=== PATIENT | female | born 1995 | race Caucasian/White ===

== ENCOUNTER 2023-11-21 19:15 | Inpatient (IN) | payer OTHER, SELFPAY ==
--- NOTE | ~2023-11-21 | CT_ITS ---
EXAMINATION: CT ABDOMEN AND PELVIS WITHOUT CONTRAST CLINICAL INFORMATION: Left-sided flank pain. COMPARISON: None available.. TECHNIQUE: Multidetector volumetric imaging was performed from the lung bases to the pubic without contrast. Sagittal and coronal reformatted images were obtained on the technologist workstation. This CT examination was performed using dose optimization techniques as appropriate, variously including the following: *Automated exposure control. *Adjustment of mA and/or kV according to patient size (this includes techniques or standardized protocols for targeted exams where dose is matched to indication/reason for exam; i.e. extremities or head). *Use of iterative reconstruction technique. DLP: 1789 mGy-cm FINDINGS: LUNG BASES: Minimal bilateral dependent atelectasis. Otherwise, no abnormalities of the visualized lung bases. No demonstrated abnormalities of the visualized cardiac structures. ABDOMEN/PELVIS: Liver, Biliary Ducts, and Gallbladder: The unenhanced liver is mildly enlarged, measuring 21 cm in intracranial caudal dimension. Normal hepatic attenuation without focal hepatic lesions or biliary ductal dilatation. The gallbladder is physiologically distended without pericholecystic fluid or significant gallbladder wall thickening. Partially calcified gallstone in the neck of the gallbladder. Pancreas: The pancreas is normal in appearance. Adrenal Glands: The adrenal glands are normal in appearance. Spleen: The spleen is normal in appearance. Kidneys and Ureters: The unenhanced kidneys are normal in size without evidence hydronephrosis. Nonobstructive punctate renal stone in the lower pole of the right kidney. No ureterolithiasis or hydroureter. Urinary Bladder: The urinary bladder is partially distended without focal wall thickening. No bladder calculi are demonstrated. Gastrointestinal System: The stomach is decompressed and therefore not well evaluated on this exam. Normal appearance of the duodenum. Short segment dilations of the jejunum, measuring up to 3.9 cm. There appears to be a small jejunojejunal intussusception without definitively demonstrated. Point on this noncontrast enhanced imaging. The remainder of the small volume is of normal caliber. The colon is normal in appearance without focal wall thickening or pericolonic inflammatory change. Normal appendix. Genitourinary: No demonstrated adnexal soft tissue masses. Intra-abdominal and Retroperitoneal Spaces: No intra-abdominal free fluid collections or gas. Mildly increased fat stranding and mildly increased small mesenteric lymph nodes. No retroperitoneal or inguinal lymphadenopathy. VASCULATURE: The abdominal aorta is of normal contour and caliber. MUSCULOSKELETAL: Mild multilevel degenerative changes of the spine. 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 No lytic or sclerotic osseous lesions demonstrated. No soft tissue masses demonstrated. CT/CT abdomen pelvis wo IV con IMPRESSION: 1. Short segment dilations of the jejunum, measuring up to 3.9 cm. There appears to be a small jejunojejunal intussusception without definitively demonstrated on this noncontrast enhanced imaging. The remainder of the small volume is of normal caliber. 2. Mild nonspecific mesenteric fat stranding and mild increased subcentimeter lymph nodes. 3. Mild nonspecific hepatomegaly. 4. Cholelithiasis without evidence of cholecystitis. 5. Nonobstructive right-sided nephrolithiasis. Electronically signed by: Prince Martinez DO 11/22/2023 12:41 AM EDT
--- NOTE | ~2023-11-21 | FL_ITS ---
EXAMINATION: FL SMALL BOWEL SERIES CLINICAL INFORMATION: Abdominal pain. Concern for small bowel intussusception COMPARISON: CT scan November 21 2023 TECHNIQUE: Following a directory carrier image of the abdomen, Gastrografin was administered orally, and interval abdominal radiographs were performed to assess for contrast progression through the small bowel FINDINGS: Fuel Cell Systems Engineer image of the abdomen demonstrates a normal bowel gas pattern. No organomegaly. Right renal calculus and gallstones seen on CT are not readily visible on this exam. No bony abnormalities. The exam is limited due to patient vomiting a large portion of the Gastrografin. There are no dilated small bowel loops present. The remaining Gastrografin is diluted throughout the small bowel, limiting the examination. Within the confines, no abnormal loops identified. No persistent intussusception identified. Contrast is seen in the right colon after 50 minutes. There is probable artifact in the epigastric region due to Gastrografin on the patient's gown. FL/FL small bowel follow through IMPRESSION: 1. Limited exam due to patient vomiting a large portion of the Gastrografin. 2. Within limitations, no definite dilated small bowel loops to suggest persistent intussusception or obstruction. Gastrografin is observed in the right colon after 50 minutes. 3. Artifact in the epigastric region due to Gastrografin on the patient's gown This procedure was performed by Gilbert Wu PA-C, and supervised by Dr. Null Electronically signed by: Luis Manuel Null MD 11/22/2023 04:32 PM EDT
--- NOTE | ~2023-11-21 | US_ITS ---
EXAMINATION: US RETROPERITONEAL LIMITED (RENAL ONLY) CLINICAL INFORMATION: CVA tenderness. Nephrolithiasis. COMPARISON: CT abdomen and pelvis 11/21/2023. TECHNIQUE: Real-time imaging of the kidneys. FINDINGS: RIGHT KIDNEY: 12.2 x 4.9 x 4.8 cm (SAG x AP x TRV). The kidney is normal in size, contour, and echogenicity. Renal cortical thickness is normal. No focal parenchymal lesions. No hydronephrosis. Punctate calculus in the lower pole of the right kidney is better evaluated on prior CT. LEFT KIDNEY: 12.1 x 5.1 x 5.0 cm (SAG x AP x TRV). The kidney is normal in size, contour, and echogenicity. Renal cortical thickness is normal. No focal parenchymal lesions or hydronephrosis. There is a 0.3 cm nonobstructing calculus in the midpole of the left kidney. US/US renal BI IMPRESSION: Small nonobstructing left renal calculus. Punctate calculus in the lower pole of the right kidney is better evaluated on prior CT. No hydronephrosis. Electronically signed by: Jonatan Mitchell MD 11/24/2023 03:28 PM EDT
[2023-11-21 19:24] VITALS: BP 110/70; PULSE 112; O2SAT 99
[2023-11-21 19:28] VITALS: BP 134/95; PULSE 91; RESP 20; TEMP 36.9; O2SAT 97; BMI 52.2
--- NOTE | 2023-11-21 19:33 | ECG_ITS ---
Test Reason : chest pain Blood Pressure : / mmHG Vent. Rate : 066 BPM Atrial Rate : 066 BPM P-R Int : 164 ms QRS Dur : 094 ms QT Int : 408 ms P-R-T Axes : 021 036 036 degrees QTc Int : 427 ms Sinus rhythm with marked sinus arrhythmia Otherwise normal ECG No previous ECGs available Referred By: Lara Clemente Electronically Signed By:FRED DAVIS
[2023-11-21] MEDS: Morphine Sulfate 2 MG/ML CARTRIDGE IVPUSH (19:50)
[2023-11-21] MEDS: LORazepam 2 MG/ML VIAL 1 MG IVPUSH (19:50)
--- NOTE | 2023-11-21 19:50 | PC.NURSE ---
Patient coming via EMS writhing in pain, yelling help me im in so much pain I Can't take it , pt gael at bedside. aware.
[2023-11-21] MEDS: Ketorolac Tromethamine 15 MG/ML VIAL IVPUSH (19:51)
[2023-11-21] MEDS: 0.9 % Sodium Chloride 1,000 ML 999 ML IV (19:51)
--- NOTE | 2023-11-21 19:53 | ED_ITS ---
HPI - Chest Pain General Chief Complaint: Chest Pain Stated Complaint: dehydration, possible kidney stone 12/07 pain Time Seen by Provider: 11/21/23 19:38 Source: patient, family ( mother and significant other) and EMS Mode of arrival: EMS Limitations: no limitations History of Present Illness ED Provider: DR. Zepeda HPI narrative: 28-year-old female came in complaining of lower back pain, nausea and vomiting, patient with known history of kidney stones in the past usually [facility]. Patient came in by ambulance very anxious and agitated crying loudly of severe pain. symptoms started since 10:00 o'clock in the morning, no old records available in our hospital. Patient otherwise decline fever chills, patient is a limited historian because anxiety and severe pain. Repeatedly asking for ice chips, hydration and pain medication. Related Data Allergies Allergy/AdvReac Type Severity Reaction Status Date / Time No Known Allergies Allergy Unverified 11/21/23 19:31 Review of Systems 2 Review of Systems: All other systems are reviewed and are negative Constitutional: Reports as per HPI and Reports no additional constitutional complaints Eyes: Reports as per HPI and Reports no additional eye complaints Reports system reviewed and no additional complaints, except as documented Cardiovascular: Reports as per HPI and Reports no additional cardiovascular complaints Respiratory: Reports as per HPI and Reports no additional respiratory complaints Gastrointestinal: Reports as per HPI and Reports no additional gastrointestinal complaints Genitourinary: Reports no additional female genitourinary complaints Musculoskeletal: Reports no additional musculoskeletal complaints Skin/Breast: Reports system reviewed and no additional complaints, except as docu Psychiatric: Reports no additional psychiatric complaints Endocrine: Reports no additional endocrine complaints Hematologic/Lymphatic: Reports no additional hematologic/lymphatic complaints Allergic/Immunologic: Reports no additional allergic/immunologic complaints Reports system reviewed and no additional complaints, except as documented and Reports Abnormal speech present [facility] Social History Social History Advance Directives: No Advance Directives Information Provided: No Do you have a plan to hurt others: No Plan Physical Exam 2 Vital Signs: Vital Signs: Last Vital Signs Temp 98.5 F 11/21/23 19:28 Pulse 91 11/21/23 19:28 Resp 16 11/21/23 20:00 BP 134/95 H 11/21/23 19:28 Pulse Ox 97 11/21/23 19:28 O2 Del Method Room Air 11/21/23 19:28 BMI result Body Mass Index 52.2 Vital signs have been reviewed and appear to be correct. Blood pressure elevated. Heart rate normal. Respiratory rate normal. Temperature normal. Oxygen saturation normal. Appearance: anxious, agitated, Alert. Oriented X3. in acute distress due to pain. Head: Normal external exam. Normocephalic. Atraumatic. No Matos signs noted. No raccoon eyes noted Eyes: PERRLA. EOMI. Conjunctiva and sclera normal. Eyelids normal. ENT: TM's Normal. Pharynx normal. Uvula midline. Moist mucous membranes. No trismus noted. No drooling noted. No muffled voice noted. Neck: Normal inspection. Neck supple. FROM. No adenopathy. Thyroid Normal. No meningeal signs. No neck mass noted. CVS: Normal heart rate and rhythm. Heart sound normal. No murmurs noted. Pulses normal throughout. Respiratory: No respiratory distress. Painless inspiration. Breath sounds normal. No wheezes/rales/rhonchi noted. Chest nontender. No accessory muscle usage noted or decreased air movement noted. Abdomen: Soft and nontender. Bowel sounds normal in all 4 quadrants. No distention noted. No organomegaly noted. No visible injury noted. Back: No CVA tenderness. Full range of motion noted. Skin: Skin warm and dry. Normal skin color. Normal skin turgor. No rashes/lesions/lacerations noted. Extremities: No lower extremity edema. Extremities exhibit normal range of motion. Extremities nontender. Neuro: Oriented X 3. Cranial nerve exam: II-XII are grossly intact No motor deficit. No sensory deficit. Reflexes normal. Course Reevaluation(s) Reevaluation #1: patient is more comfortable after Dilaudid and Zofran, receiving IV fluids, case signed out to Dr. Vargas. Time: 21:04 Medications Administered Discontinued Medications Generic Name Dose Route Start Last Admin Trade Name Freq PRN Reason Stop Dose Admin Hydromorphone HCl 1 mg 11/21/23 20:42 11/21/23 20:50 Hydromorphone Hcl 1 Mg/Ml Syringe IVPUSH 11/21/23 20:43 1 mg ONCE ONE Administration Protocol Sodium Chloride 1,000 mls @ 999 mls/hr 11/21/23 19:32 11/21/23 19:51 Ns IV 11/21/23 20:32 999 mls/hr .Q1H1M ONE Administration Ketorolac Tromethamine 15 mg 11/21/23 19:44 11/21/23 19:51 Ketorolac Tromethamine 15 Mg/Ml Vial IVPUSH 11/21/23 19:45 15 mg ONCE ONE Administration Lorazepam 1 mg 11/21/23 19:32 11/21/23 19:50 Lorazepam 2 Mg/Ml Vial IVPUSH 11/21/23 19:33 1 mg STAT STA Administration Morphine Sulfate 2 mg 11/21/23 19:44 11/21/23 19:50 Morphine Sulfate 2 Mg/Ml Cartridge IVPUSH 11/21/23 19:45 2 mg ONCE ONE Administration Protocol Ondansetron HCl 4 mg 11/21/23 19:58 11/21/23 20:02 Ondansetron Hcl 4 Mg/2 Ml Vial IVPUSH 11/21/23 19:59 4 mg ONCE ONE Administration Ondansetron HCl 4 mg 11/21/23 20:42 11/21/23 20:51 Ondansetron Hcl 4 Mg/2 Ml Vial IVPUSH 11/21/23 20:43 4 mg ONCE ONE Administration Medical Decision Making Differential Diagnosis Differential Diagnoses: The differential diagnosis associated with the presentation includes ( colitis, diverticulitis, kidney stone, UTI, pyelonephritis, acute appendicitis, electrolyte derangement, severe anemia.) Admission/Observation Consideration of admission/observation: Escalation of care including admission/observation considered Lab Data MDM Lab Attestation statement: I reviewed the patient's lab results. 11/21/23 19:45 11/21/23 19:45 Labs: Lab Results 11/21/23 11/21/23 Range/Units 19:44 19:45 WBC 21.5 H (4.8-10.8) X10*3/uL RBC 4.73 (4.20-5.50) X10*6/uL Hgb 13.8 (12.0-16.0) g/dl Hct 40.4 (37.0-47.0) % MCV 85.4 (80.0-98.0) fL MCH 29.2 (27.0-33.0) pg MCHC 34.2 (31.0-35.0) g/dl RDW 12.9 (11.0-16.0) % Plt Count 470 H (160-400) X10*3/uL MPV 9.9 (9.4-12.3) fL Immature Gran % (Auto) 0.6 H (0.0-0.4) % Neut % (Auto) 92.8 H (45-73) % Lymph % (Auto) 5.3 L (20-40) % [place] % (Auto) 1.0 L (2-11) % Eos % (Auto) 0.1 (0-4) % Baso % (Auto) 0.2 (0-2) % Lymph # (Auto) 1.1 L (1.2-4.9) X10*3/uL [place] # (Auto) 0.2 (0.1-1.2) X10*3/uL Eos # (Auto) 0.0 (0.0-0.4) X10*3/uL Baso # (Auto) 0.1 (0.0-0.2) X10*3/uL Abs Immat Gran (auto) 0.12 H (0.00-0.03) X10*3/uL Absolute Neuts (auto) 19.9 H (2.0-8.3) x10*3/uL Absolute Nucleated RBC 0.000 (0.0-0.012) X10*3/uL Nucleated RBC % (auto) 0.0 (0.0-0.2) /100WBC Smear Tech's Comments VERIFIED Sodium 135 (135-145) mmol/L Potassium 3.7 (3.3-5.1) mmol/L Chloride 101 (96-108) mmol/L Carbon Dioxide 20 L (22-29) mmol/L Anion Gap 18 (12-20) BUN 7 L (9-16) mg/dL Creatinine 0.85 (0.5-1.4) mg/dL Estim Creat Clear Calc 146.5 Estimated GFR > 60 Random Glucose 139 H (60-115) mg/dL Calcium 9.8 (8.4-10.2) mg/dL Magnesium 1.9 (1.6-2.6) mg/dL Total Bilirubin 0.4 (0.0-1.0) mg/dL Direct Bilirubin 0.1 (0.0-0.5) mg/dL AST 17 (5-31) U/L ALT 12 (0-31) U/L Alkaline Phosphatase 82 (39-117) U/L Troponin I High Sens < 2.7 (<3.5-17.0) ng/L Total Protein 8.6 H (6.5-8.0) g/dL Albumin 4.5 (3.5-5.0) g/dL Lipase 8 (8-78) U/L Beta HCG, Quant < 2 mIU/mL Ethyl Alcohol < 10 mg/dL Discharge Plan Discharge Clinical Impression: Back pain Patient Disposition: Still a Patient Print Language: Taiwanese
[2023-11-21 19:54] LABS: Basophils Absolute Auto 0.1 X10*3/uL (0.0-0.2); Basophils Percent Auto 0.2 % (0-2); Eosinophils Percent Auto 0.1 % (0-4); Hematocrit 40.4 % (37.0-47.0); Hemoglobin 13.8 g/dl (12.0-16.0); Imm Gran Abs Auto 0.12 X10*3/uL (0.00-0.03); Imm Gran Pct Auto 0.6 % (0.0-0.4); Lymphocytes Absolute Auto 1.1 X10*3/uL (1.2-4.9); Lymphocytes Percent Auto 5.3 % (20-40); MANUAL DIFF FLAG SCAN; Mean Corpuscular HGB Conc 34.2 g/dl (31.0-35.0); Mean Corpuscular Hemoglobin 29.2 pg (27.0-33.0); Mean Corpuscular Volume 85.4 fL (80.0-98.0); Mean Platelet Volume 9.9 fL (9.4-12.3); Monocytes Absolute Auto 0.2 X10*3/uL (0.1-1.2); Neutrophils Absolute Auto 19.9 x10*3/uL (2.0-8.3); Neutrophils Percent Auto 92.8 % (45-73); Platelet Count 470 X10*3/uL (160-400); Red Blood Count 4.73 X10*6/uL (4.20-5.50); Red Cell Distribution Width 12.9 % (11.0-16.0); SCAN SMEAR FLAG 1; White Blood Count 21.5 X10*3/uL (4.8-10.8)
[2023-11-21 20:00] VITALS: RESP 16
[2023-11-21] MEDS: ondansetron HCL 4 MG/2 ML VIAL IVPUSH ×2 (20:02→20:51)
[2023-11-21 20:12] LABS: SLIDE REVIEW VERIFIED
--- NOTE | 2023-11-21 20:15 | HE.NUR.EV ---
Status Change: Immediate Actions Taken: Notifications: Further Monitoring and Treatment:
--- NOTE | 2023-11-21 20:15 | PC.NURSE ---
pt continues dry heaves at bedside, asking for her mother, pt mother brought to bedside for comfort and safety. Pt reports pain still in abdomen and medication not working. pt aaxo4 speaking clear full sentences. Pt is extremely tearful and vocal in hallway at this time. aware. Pending additional medication interventions
[2023-11-21 20:23] LABS: Alanine Aminotransferase 12 U/L (0-31); Albumin Level 4.5 g/dL (3.5-5.0); Alkaline Phosphatase 82 U/L (39-117); Anion Gap 18 (12-20); Aspartate Amino Transferase 17 U/L (5-31); Bilirubin Direct 0.1 mg/dL (0.0-0.5); Bilirubin Total 0.4 mg/dL (0.0-1.0); Blood Urea Nitrogen 7 mg/dL (9-16); Calcium 9.8 mg/dL (8.4-10.2); Carbon Dioxide 20 mmol/L (22-29); Chloride 101 mmol/L (96-108); Creatinine Clr Calc Pharmacy 146.5; Estimated Glomerular Filt Rate > 60; Glucose Random 139 mg/dL (60-115); Lipase 8 U/L (8-78); Magnesium 1.9 mg/dL (1.6-2.6); Potassium 3.7 mmol/L (3.3-5.1); Sodium 135 mmol/L (135-145); Total Protein 8.6 g/dL (6.5-8.0)
[2023-11-21 20:27] LABS: Ethanol < 10 mg/dL
[2023-11-21 20:34] LABS: HCG Quantitative < 2 mIU/mL
[2023-11-21] MEDS: HYDROmorphone HCl 1 MG/ML SYRINGE IVPUSH (20:50)
[2023-11-21 20:57] LABS: Troponin-I High Sensitivity < 2.7 ng/L (<3.5-17.0)
--- NOTE | 2023-11-21 21:20 | PC.NURSE ---
Patient calm and smiling on stretcher and has become more clear and able to hold conversation without discomfort or yelling. Patient reports pain has subsided at this time. Fiance and mother at bedside talking with patient pending CT scan results.
[2023-11-21 21:51] LABS: Appearance Urine Cloudy; Color Urine Yellow; Glucose Urine UA Negative (Negative); Leukocyte Esterase Urine Moderate (2+) (Negative); Nitrite Urine Negative (Negative); Specific Gravity - Urine >= 1.030 (1.005-1.025); UMIC TRIGGER UACC YES; Urine Blood Moderate (2+) (Negative); Urine Ketones >=160 mg/dL (Negative); Urine Protein 30 (1+) mg/dL (Neg-Trace)
[2023-11-21 22:01] LABS: Amphetamine Screen Urine Not Detected (Not Detect); Barbiturates, Urine Not Detected (Not Detect); Benzodiazepines Screen Urine Not Detected (Not Detect); Buprenorphine Scr Not Detected (Not Detect); Cannabinoid Screen Urine POSITIVE (Not Detect); Cocaine Screen Urine Not Detected (Not Detect); Fentanyl, urine Not Detected (Not Detect); Methadone Screen, Urine Not Detected (Not Detect); Opiate Screen Urine POSITIVE (Not Detect); Oxycodone Screen Urine Not Detected (Not Detect); Phencyclidine Screen Urine Not Detected (Not Detect)
[2023-11-21 22:28] LABS: Bacteria Urine 2+ (None Seen); Hyaline Casts Urine 0-2 /LPF (0-2); WBC Urine 0-5 /HPF (0-5)
[2023-11-21 22:48] VITALS: BP 130/52; PULSE 70; RESP 16; TEMP 36.4; O2SAT 97
--- NOTE | 2023-11-21 23:03 | ED_ITS ---
HPI - Chest Pain General Chief Complaint: Chest Pain Stated Complaint: dehydration, possible kidney stone 12/07 pain Time Seen by Provider: 11/21/23 19:38 Source: patient, family ( mother and significant other) and EMS Mode of arrival: EMS Limitations: no limitations Related Data Allergies Allergy/AdvReac Type Severity Reaction Status Date / Time No Known Allergies Allergy Unverified 11/21/23 19:31 [facility] Social History Social History Smoked in Last 30 Days: No Use of substances other than those prescribed or required for medical reasons: Yes Substance Use Type: Marijuana Substance Use Frequency: Occasionally Advance Directives: No Advance Directives Information Provided: No Do you have a plan to hurt others: No Plan Patient : No Physical Exam 2 Vital Signs: Vital Signs: Last Vital Signs Temp 97.6 F 11/21/23 22:48 Pulse 70 11/21/23 22:48 Resp 16 11/21/23 22:48 BP 130/52 L 11/21/23 22:48 Pulse Ox 97 11/21/23 22:48 O2 Del Method Room Air 11/21/23 22:48 BMI result Body Mass Index 52.2 Course Reevaluation(s) Reevaluation #1: second urine ordered as first urine was contaminated Time: 23:03 Medications Administered Discontinued Medications Generic Name Dose Route Start Last Admin Trade Name Freq PRN Reason Stop Dose Admin Hydromorphone HCl 1 mg 11/21/23 20:42 11/21/23 20:50 Hydromorphone Hcl 1 Mg/Ml Syringe IVPUSH 11/21/23 20:43 1 mg ONCE ONE Administration Protocol Sodium Chloride 1,000 mls @ 999 mls/hr 11/21/23 19:32 11/21/23 22:37 Ns IV 11/21/23 20:32 Infused .Q1H1M ONE Infusion Ketorolac Tromethamine 15 mg 11/21/23 19:44 11/21/23 19:51 Ketorolac Tromethamine 15 Mg/Ml Vial IVPUSH 11/21/23 19:45 15 mg ONCE ONE Administration Lorazepam 1 mg 11/21/23 19:32 11/21/23 19:50 Lorazepam 2 Mg/Ml Vial IVPUSH 11/21/23 19:33 1 mg STAT STA Administration Morphine Sulfate 2 mg 11/21/23 19:44 11/21/23 19:50 Morphine Sulfate 2 Mg/Ml Cartridge IVPUSH 11/21/23 19:45 2 mg ONCE ONE Administration Protocol Ondansetron HCl 4 mg 11/21/23 19:58 11/21/23 20:02 Ondansetron Hcl 4 Mg/2 Ml Vial IVPUSH 11/21/23 19:59 4 mg ONCE ONE Administration Ondansetron HCl 4 mg 11/21/23 20:42 11/21/23 20:51 Ondansetron Hcl 4 Mg/2 Ml Vial IVPUSH 11/21/23 20:43 4 mg ONCE ONE Administration Medical Decision Making Lab Data 11/21/23 19:45 11/21/23 19:45 Labs: Lab Results 11/21/23 11/21/23 11/21/23 Range/Units 19:44 19:45 21:41 WBC 21.5 H (4.8-10.8) X10*3/uL RBC 4.73 (4.20-5.50) X10*6/uL Hgb 13.8 (12.0-16.0) g/dl Hct 40.4 (37.0-47.0) % MCV 85.4 (80.0-98.0) fL MCH 29.2 (27.0-33.0) pg MCHC 34.2 (31.0-35.0) g/dl RDW 12.9 (11.0-16.0) % Plt Count 470 H (160-400) X10*3/uL MPV 9.9 (9.4-12.3) fL Immature Gran % (Auto) 0.6 H (0.0-0.4) % Neut % (Auto) 92.8 H (45-73) % Lymph % (Auto) 5.3 L (20-40) % [place] % (Auto) 1.0 L (2-11) % Eos % (Auto) 0.1 (0-4) % Baso % (Auto) 0.2 (0-2) % Lymph # (Auto) 1.1 L (1.2-4.9) X10*3/uL [place] # (Auto) 0.2 (0.1-1.2) X10*3/uL Eos # (Auto) 0.0 (0.0-0.4) X10*3/uL Baso # (Auto) 0.1 (0.0-0.2) X10*3/uL Abs Immat Gran (auto) 0.12 H (0.00-0.03) X10*3/uL Absolute Neuts (auto) 19.9 H (2.0-8.3) x10*3/uL Absolute Nucleated RBC 0.000 (0.0-0.012) X10*3/uL Nucleated RBC % (auto) 0.0 (0.0-0.2) /100WBC Smear Tech's Comments VERIFIED Sodium 135 (135-145) mmol/L Potassium 3.7 (3.3-5.1) mmol/L Chloride 101 (96-108) mmol/L Carbon Dioxide 20 L (22-29) mmol/L Anion Gap 18 (12-20) BUN 7 L (9-16) mg/dL Creatinine 0.85 (0.5-1.4) mg/dL Estim Creat Clear Calc 146.5 Estimated GFR > 60 Random Glucose 139 H (60-115) mg/dL Calcium 9.8 (8.4-10.2) mg/dL Magnesium 1.9 (1.6-2.6) mg/dL Total Bilirubin 0.4 (0.0-1.0) mg/dL Direct Bilirubin 0.1 (0.0-0.5) mg/dL AST 17 (5-31) U/L ALT 12 (0-31) U/L Alkaline Phosphatase 82 (39-117) U/L Troponin I High Sens < 2.7 (<3.5-17.0) ng/L Total Protein 8.6 H (6.5-8.0) g/dL Albumin 4.5 (3.5-5.0) g/dL Lipase 8 (8-78) U/L Beta HCG, Quant < 2 mIU/mL Urine Color Yellow Urine Appearance Cloudy Urine pH 6.0 (5.0-9.0) Ur Specific Pepin >= 1.030 H (1.005-1.025) Urine Protein 30 (1+) H (Neg-Trace) mg/dL Urine Glucose (UA) Negative (Negative) mg/dL Urine Ketones >=160 (Negative) mg/dL Urine Blood Moderate (2+) H (Negative) Urine Nitrite Negative (Negative) Ur Leukocyte Esterase Moderate (2+) H (Negative) Urine RBC 6-10 H (0-2) /HPF Urine WBC 0-5 (0-5) /HPF Ur Squamous Epith Cells 11-20 (0-2) /HPF Urine Bacteria 2+ (None Seen) Hyaline Casts 0-2 (0-2) /LPF Urine Opiates Screen POSITIVE H (Not Detect) Ur Buprenorphine Scrn Not Detected (Not Detect) ng/mL Ur Oxycodone Screen Not Detected (Not Detect) ng/mL Urine Methadone Screen Not Detected (Not Detect) ng/mL Urine Fentanyl Screen Not Detected (Not Detect) Ur Barbiturates Screen Not Detected (Not Detect) Ur Phencyclidine Scrn Not Detected (Not Detect) Ur Amphetamines Screen Not Detected (Not Detect) U Benzodiazepines Scrn Not Detected (Not Detect) Urine Cocaine Screen Not Detected (Not Detect) U Marijuana (THC) Screen POSITIVE H (Not Detect) Ethyl Alcohol < 10 mg/dL Discharge Plan Discharge Clinical Impression: Back pain Patient Disposition: Still a Patient Print Language: Luxembourger
[2023-11-21 23:37] VITALS: RESP 20
[2023-11-21] MEDS: Morphine Sulfate 4 MG/ML CARTRIDGE IVPUSH (23:37)
--- NOTE | 2023-11-21 23:45 | PC.NURSE ---
This filing writer assumed care of this Pt at 2300. Pt A&Ox3, reports intermittent cramping lower ABD pain with nausea. Pt medicated per APR.
[2023-11-21 23:57] LABS: Appearance Urine Cloudy; Color Urine Dark Yellow; Glucose Urine UA Negative (Negative); Leukocyte Esterase Urine Negative (Negative); Nitrite Urine Negative (Negative); Specific Gravity - Urine >= 1.030 (1.005-1.025); UMIC TRIGGER UACC YES; Urine Blood Trace (Negative); Urine Ketones 80 mg/dL (Negative); Urine Protein 100 (2+) mg/dL (Neg-Trace)
[2023-11-22] VITALS (8 sets, daily range): BP systolic 117–146; BP diastolic 58–88; PULSE 68–98; RESP 16–20; TEMP 36.2–37.2; O2SAT 93–97; BMI 51.4; BMI 51.3
[2023-11-22 00:08] LABS: Bacteria Urine 2+ (None Seen); Squamous Epithelial Cell Urine >20 /HPF (0-2); WBC Urine 0-5 /HPF (0-5)
[2023-11-22] MEDS: cefTRIAXone sodium 1 GM in 0.9 % Sodium Chloride 50 ML IV (01:10)
[2023-11-22] MEDS: ondansetron HCL 4 MG/2 ML VIAL IVPUSH ×2 (01:11→07:22)
[2023-11-22] MEDS: Magnesium Hydrox/Alum Hydrox 30 ML ORAL.SUSP PO (01:11)
[2023-11-22] MEDS: Morphine Sulfate 4 MG/ML CARTRIDGE IVPUSH ×2 (02:11→04:10)
--- NOTE | 2023-11-22 04:04 | PC.NURSE ---
Verbal order for O.5 iv Dilaudid q2? prn given by Dr. Schmidt. Pt updated on plan of care.
[2023-11-22] MEDS: Metoclopramide HCl 10 MG/2 ML VIAL IVPUSH ×3 (04:10→21:23)
--- NOTE | 2023-11-22 04:15 | PC.NURSE ---
Pt tearful, requesting some water for throat pain. Pt educated on being NPO. Pt medicated per APR.
[2023-11-22] MEDS: 0.9 % Sodium Chloride Flush 3 ML SYRINGE IVFLUSH ×2 (07:24→21:24)
[2023-11-22] MEDS: HYDROmorphone HCl 0.5 MG/0.5 ML SYRINGE IVPUSH ×5 (07:24→22:19)
[2023-11-22] MEDS: Diatrizoate Meglumine, Sodium 120 ML SOLUTION 240 ML PO (08:50)
--- NOTE | 2023-11-22 10:22 | PM.HPGS ---
History of Present Illness History of Present Illness Date of Service: 11/22/23 Chief complaint: Abd Pain Narrative: Mary Wilhelm is a 28 year old female with PMH of nephrolithiasis who presented to the ED with c/o upper back pain, nausea and vomiting. Patient is extremely anxious and hard to get a history from. History obtained from boyfriend and mother at bedside. She reports recurrent episodes of upper back pain, this current episode is left sided and began yesterday morning. She states it feels like her prior episodes of kidney stones. 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 She denies any abdominal pain. She does however endorse postprandial vomiting which has been ongoing for years and reports more frequent vomiting with this episode of pain. She has been passing flatus and moving her bowels normally. She reports she has IBS-D so her stools are normally looser. She denies however ever seeing a GI provider but reports having an extensive work up for her symptoms including an EGD which she reports was around 10 years ago. Due to the severity of this episode of pain, she presented to the ED for evaluation where work up included CBC, BMP, LFTs which was significant for leukocytosis of 21.5. CT scan abd/pelvis was obtained which showed a short segment of dilated jejunum with question of a small jejunojejunal intussusception. She had air and stool in her rectum. Unenhanced kidneys were normal with nonobstructive right-sided nephrolithiasis. She has received multiple doses of morphine, dilaudid, ketorolac with continued severe pain and zofran for nausea. Upper GI series was obtained which showed contrast in the colon at 50min and she was able to tolerate most of the contrast. She denies fever, chills, hematemesis, abdominal pain, hematochezia, melena, dysuria. [facility] Social History Social History Smoked in Last 30 Days: No Use of substances other than those prescribed or required for medical reasons: Yes Substance Use Type: Marijuana Substance Use Frequency: Occasionally Advance Directives: No Advance Directives Information Provided: No Do you have a plan to hurt others: No Plan Patient : No Meds Allergies Allergy/AdvReac Type Severity Reaction Status Date / Time No Known Allergies Allergy Unverified 11/21/23 19:31 Active Medications: Current Medications Acetaminophen (Acetaminophen 325 Mg Tablet) 650 mg PO Q6H PRN PRN Reason: Pain, Mild (Pain Scale 1-3), fever or headache Al Hydroxide/Mg Hydroxide (Magnesium Hydrox/Alum Hydrox 30 Ml Oral.Susp) 30 ml PO Q4H PRN PRN Reason: Heartburn Calcium Carbonate (Calcium Carbonate 750 Mg Tab.Chew) 750 mg PO Q4H PRN PRN Reason: Heartburn Hydromorphone HCl (Hydromorphone Hcl 0.5 Mg/0.5 Ml Syringe) 0.5 mg IVPUSH Q2H PRN; Protocol PRN Reason: Pain, Severe (Pain Scale 7-10) Last Admin: 11/22/23 09:55 Dose: 0.5 mg Ketorolac Tromethamine (Ketorolac Tromethamine 30 Mg/Ml Vial) 30 mg IVPUSH Q6H PRN PRN Reason: Pain, Mild (Pain Scale 1-3) Magnesium Hydroxide (Milk Of Magnesia 30 Ml Oral.Susp) 30 ml PO DAILY PRN PRN Reason: Constipation Melatonin (Melatonin 3 Mg Tablet) 6 mg PO BEDTIME PRN PRN Reason: Insomnia Metoclopramide HCl (Metoclopramide Hcl 10 Mg/2 Ml Vial) 10 mg IVPUSH Q6H PRN PRN Reason: Nausea and Vomiting Sodium Chloride (0.9 % Sodium Chloride Flush 3 Ml Syringe) [facility] Last Admin: 11/22/23 07:24 Dose: 3 ml Home Medications ?Medication ?Instructions ?Recorded ?Confirmed ?Last Taken ?Type aripiprazole 15 mg tablet 15 mg PO BID 11/22/23 11/22/23 11/15/23 History bupropion HCl 150 mg 24 hr tablet, 150 mg PO DAILY 11/22/23 11/22/23 11/15/23 History extended release clonazepam 1 mg tablet 1 mg PO DAILY PRN Anxiety 11/22/23 11/22/23 11/15/23 History guanfacine 1 mg tablet,extended 1 mg PO BID 11/22/23 11/22/23 11/15/23 History release 24 hr Physical Exam Vital Signs: Vital Signs: Last Vital Signs Temp 98.9 F 11/22/23 02:00 Pulse 79 11/22/23 02:00 Resp 18 11/22/23 07:24 BP 117/71 11/22/23 02:00 Pulse Ox 94 11/22/23 02:00 O2 Del Method Room Air 11/22/23 02:00 BMI result Body Mass Index 51.4 Const: General: alert and other (uncomfortable appearing ) Orientation/consciousness: patient oriented x3 Resp: Effort & Inspection: normal respiratory effort GI: Other: very corpulent abdomen Inspection: No distended and No scar Palpation (GI): Soft to palpation, Tenderness to palpation present (GI) (very mild upper abdominal tenderness ) Roa's sign negative and with no rebound tenderness and no guarding Percussion: Yes normal to percussion Skin: General skin exam: no rashes or lesions noted and no jaundice Neuro: General: patient oriented x3 and moves all extremities Results Results Labs: Short CBC 11/21/23 Range/Units 19:45 WBC 21.5 H (4.8-10.8) X10*3/uL Hgb 13.8 (12.0-16.0) g/dl Hct 40.4 (37.0-47.0) % Plt Count 470 H (160-400) X10*3/uL BMP 11/21/23 19:45 Sodium 135 Potassium 3.7 Chloride 101 Carbon Dioxide 20 L BUN 7 L Creatinine 0.85 Calcium 9.8 Liver Function 11/21/23 Range/Units 19:45 Total Bilirubin 0.4 (0.0-1.0) mg/dL Direct Bilirubin 0.1 (0.0-0.5) mg/dL AST 17 (5-31) U/L ALT 12 (0-31) U/L Alkaline Phosphatase 82 (39-117) U/L Albumin 4.5 (3.5-5.0) g/dL Urine 11/21/23 11/21/23 Range/Units 21:41 23:45 Urine Color Yellow Dark Yellow Urine Appearance Cloudy Cloudy Urine pH 6.0 6.0 (5.0-9.0) Ur Specific [place] >= 1.030 H >= 1.030 H (1.005-1.025) Urine Protein 30 (1+) H 100 (2+) H (Neg-Trace) mg/dL Urine Glucose (UA) Negative Negative (Negative) mg/dL Abdomen CT scan report/results: report reviewed and image reviewed Assessment and Plan (1) Vomiting: Status: Acute Plan 28 year old female with PMH of nephrolithiasis with multiple acute and chronic symptoms of intermittent episodic upper back pain and daily postprandial vomiting with leukocytosis and CT scan questioning SB intussusception. Etiology of her symptomatology is unclear at this point. She has been passing flatus and is without abdominal pain, tenderness or peritoneal signs on exam and has air distally in the rectum. SBFT shows contrast in the colon at 50min and therefore SBO and intussusception unlikely. Will obtain GI consult for evaluation. Can have clear liquids as tolerated today, cont IVF, PRN analgesics and antiemetics. NPO after midnight. Her vitals are stable and she is afebrile, without tachycardia. Leukocytosis is likely reactive from the vomiting so will hold off on empiric antibiotics. Repeat CBC in am. She does have a hx of kidney stones and has a nonobstructing right nephrolithiasis on imaging however her pain is left sided so doubt pain is secondary to stones. UA was ordered twice and both are contaminated. If no improvement, possible urology consult tomorrow. Discussed plan with patient and mother who are in agreement. Quality Stroke Does the patient have a stroke diagnosis?: No VTE Prior VTE?: No VTE Risk Level:: Surgical - low VTE Device Contraindication: Treatment Not Indicated VTE Drug Contraindication: Treatment Not Indicated Procedures Date of Service Date of Service: 11/22/23
--- NOTE | 2023-11-22 10:44 | PHA.MEDREC ---
Addendum entered by Chris Duque RPh 11/22/23 10:47: Reviewed by [facility] Original Note: Pharmacy Consult ? Medication Reconciliation Pharmacy has completed the medication reconciliation. Spoke to patient to confirm med list.
--- NOTE | 2023-11-22 10:57 | PM.GICN ---
History of Present Illness Data of Consult Service Date: 11/22/23 Requesting physician: Madhavi Souza Primary Care Provider: Unknown Physician HPI Reason for consult: Nausea and vomiting This is a 28 year old female with past medical history of anxiety and recurrent kidney stones who presented to the hospital for abd pain concerning for renal stones but now with persistent nausea and vomiting for which GI has been consulted. Patient reports almost a year long sx - has days of nausea and vomiting with inability to tolerate anything PO which gets better with a hot shower, followed by periods of no sx. More recently for the past couple of months the frequency of sx is increasing. Pt does get headaches with this but not migraines particularly. Mother has hx of migraines. Uses marijuana occasionally when hanging out with friends. Last used within the past week. Patient has remained vitally stable since arrival to the hospital. Initial CT scan with small jejunojejunal intussusception on noncontrast CT scan. She was therefore admitted under surgical service. Labs significant for white count of 21.5 thrombocytosis. Left shift. Chem 7 suggestive of dehydration. Urinalysis with microhematuria and proteinuria. Tox screen positive for opiates and marijuana (pt had received IV morphine in the ER prior to urine tox). She had an UGIS this morning - was unable to tolerate the gastrograffin as well and threw that up however a small amount was able to be tracked and did reach R colon. Review of Systems Review of Systems: Yes all other systems are reviewed and are negative [facility] Social History Social History Household Members: Family Housing: Apartment Do you presently have visiting nurse or other home services: No Patient Tobacco Use Status: Former Tobacco user Smoked in Last 30 Days: No Use of substances other than those prescribed or required for medical reasons: Yes Substance Use Type: Marijuana Substance Use Frequency: Occasionally Have you been hit, kicked, punched, or otherwise hurt by someone within the past year? If so, by whom?: No Do you feel safe in your current relationship?: Yes Is there a partner from a previous relationship who is making you feel unsafe now?: No Are you made to feel afraid or neglected: No Advance Directives: No Advance Directives Information Provided: No Do you have a plan to hurt others: No Plan Recently lost weight without trying: No Eating poorly because of decreased appetite: No Nutrition Risks: Acute nausea or vomiting x1 week Patient : No service: No Meds Allergies Allergy/AdvReac Type Severity Reaction Status Date / Time No Known Allergies Allergy Unverified 11/21/23 19:31 Active Medications: Current Medications Acetaminophen (Acetaminophen 325 Mg Tablet) 650 mg PO Q6H PRN PRN Reason: Pain, Mild (Pain Scale 1-3), fever or headache Al Hydroxide/Mg Hydroxide (Magnesium Hydrox/Alum Hydrox 30 Ml Oral.Susp) 30 ml PO Q4H PRN PRN Reason: Heartburn Calcium Carbonate (Calcium Carbonate 750 Mg Tab.Chew) 750 mg PO Q4H PRN PRN Reason: Heartburn Hydromorphone HCl (Hydromorphone Hcl 0.5 Mg/0.5 Ml Syringe) 0.5 mg IVPUSH Q2H PRN; Protocol PRN Reason: Pain, Severe (Pain Scale 7-10) Last Admin: 11/22/23 09:55 Dose: 0.5 mg Ketorolac Tromethamine (Ketorolac Tromethamine 30 Mg/Ml Vial) 30 mg IVPUSH Q6H PRN PRN Reason: Pain, Mild (Pain Scale 1-3) Lorazepam (Lorazepam 2 Mg/Ml Vial) 0.5 mg IVPUSH Q6H PRN PRN Reason: Anxiety Magnesium Hydroxide (Milk Of Magnesia 30 Ml Oral.Susp) 30 ml PO DAILY PRN PRN Reason: Constipation Melatonin (Melatonin 3 Mg Tablet) 6 mg PO BEDTIME PRN PRN Reason: Insomnia Metoclopramide HCl (Metoclopramide Hcl 10 Mg/2 Ml Vial) 10 mg IVPUSH Q6H PRN PRN Reason: Nausea and Vomiting Sodium Chloride (0.9 % Sodium Chloride Flush 3 Ml Syringe) [facility] Last Admin: 11/22/23 07:24 Dose: 3 ml Home Medications ?Medication ?Instructions ?Recorded ?Confirmed ?Last Taken ?Type aripiprazole 15 mg tablet 15 mg PO BID 11/22/23 11/22/23 11/15/23 History bupropion HCl 150 mg 24 hr tablet, 150 mg PO DAILY 11/22/23 11/22/23 11/15/23 History extended release clonazepam 1 mg tablet 1 mg PO DAILY PRN Anxiety 11/22/23 11/22/23 11/15/23 History guanfacine 1 mg tablet,extended 1 mg PO BID 11/22/23 11/22/23 11/15/23 History release 24 hr Physical Exam Vital Signs: Vital Signs: Last Vital Signs Temp 97.8 F 11/22/23 10:27 Pulse 68 11/22/23 10:27 Resp 18 11/22/23 10:27 BP 137/84 11/22/23 10:27 Pulse Ox 94 11/22/23 10:27 O2 Del Method Room Air 11/22/23 10:27 BMI result Body Mass Index 51.4 Seen at bedside Sleepy but able to answer questions abd soft, nondistended, tender in epigastrium no resp distress No TARAH Results Labs 11/21/23 19:45 11/21/23 19:45 Labs: Short CBC 11/21/23 Range/Units 19:45 WBC 21.5 H (4.8-10.8) X10*3/uL Hgb 13.8 (12.0-16.0) g/dl Hct 40.4 (37.0-47.0) % Plt Count 470 H (160-400) X10*3/uL BMP 11/21/23 19:45 Sodium 135 Potassium 3.7 Chloride 101 Carbon Dioxide 20 L BUN 7 L Creatinine 0.85 Calcium 9.8 Liver Function 11/21/23 Range/Units 19:45 Total Bilirubin 0.4 (0.0-1.0) mg/dL Direct Bilirubin 0.1 (0.0-0.5) mg/dL AST 17 (5-31) U/L ALT 12 (0-31) U/L Alkaline Phosphatase 82 (39-117) U/L Albumin 4.5 (3.5-5.0) g/dL Urine 11/21/23 11/21/23 Range/Units 21:41 23:45 Urine Color Yellow Dark Yellow Urine Appearance Cloudy Cloudy Urine pH 6.0 6.0 (5.0-9.0) Ur Specific [place] >= 1.030 H >= 1.030 H (1.005-1.025) Urine Protein 30 (1+) H 100 (2+) H (Neg-Trace) mg/dL Urine Glucose (UA) Negative Negative (Negative) mg/dL Assessment and Plan (1) Vomiting: Status: Acute Plan DDx for her longstanding include PUD, gastritis, cyclical vomiting, cannabis hyperemesis syndrome, abd migraine, MCAS. Current presentation that started off with severe abd pain (which later dissipated) could be intussusception that reduced with gastrograffin vs passed renal stone. GOO unlikely given results of UGIS. Similarly eating disorder also appears to be unlikely as pt has had witnessed unprovoked emesis in the hospital. AIP considered however N/V is in the absence of abd pain. Plan: - EGD tmrw (contrast ingestion precludes procedure today) - Can have clears today and NPO after MN - Tryptase and C4 +C1inh ordered for MCAS and angioedema respectively. - If EGD normal, can review further eval as outpatient - may consider CT enterography vs VCE to r/o small bowel lesion acting as a lead point for ? intussusception - Pt and family are interested in establishing care with Urology for nephrolithiasis and were advised to reach out to her PCP for outpatient referral Thank you for allowing me to participate in her care. Please do not hesitate to reach out for questions or concerns. Procedures Date of Service Date of Service: 11/22/23
--- NOTE | 2023-11-22 11:59 | MHC.CM.PN ---
CM MET WITH PT AT BEDSIDE. MOTHER/BOYFRIEND ALSO AT BEDSIDE. PT LIVES WITH MOTHER. INDEPENDENT AT BASELINE. PT IS CONNECTED WITH [facility], HAS CUSTOMER SERVICER ([facility]) AND PCP IS WITH [facility] IN [facility]. PT IS UNABLE TO RECALL NAME. + HCP DP: HOME, NO SERVICES IS THE GOAL. MOTHER WILL TRANSPORT HOME. CM WILL CONTINUE TO FOLLOW FOR ANY CHANGE TO DC PLAN/NEEDS.
[2023-11-22] MEDS: LORazepam 2 MG/ML VIAL 0.5 MG IVPUSH (13:34)
[2023-11-22] MEDS: Calcium Carbonate 750 MG TAB.CHEW PO ×2 (14:51→20:50)
--- NOTE | 2023-11-22 17:39 | PC.NURSE ---
Pt was yelling and screaming earlier today. Mother at bedside. Door closed for privacy and disrupting the unit and other patients.
[2023-11-22] MEDS: guanFACINE HCl ER 1 MG TAB.ER.24H PO (22:19)
[2023-11-22] MEDS: ARIPiprazole 15 MG TABLET PO (22:19)
[2023-11-23] VITALS (8 sets, daily range): BP systolic 93–144; BP diastolic 52–98; PULSE 72–91; RESP 15–18; TEMP 36.2–36.8; O2SAT 95–98
[2023-11-23] MEDS: HYDROmorphone HCl 0.5 MG/0.5 ML SYRINGE IVPUSH ×3 (02:55→19:42)
[2023-11-23] MEDS: Metoclopramide HCl 10 MG/2 ML VIAL IVPUSH ×2 (03:44→19:43)
[2023-11-23 06:21] LABS: Hematocrit 38.1 % (37.0-47.0); Hemoglobin 12.5 g/dl (12.0-16.0); Mean Corpuscular HGB Conc 32.8 g/dl (31.0-35.0); Mean Corpuscular Hemoglobin 28.9 pg (27.0-33.0); Mean Platelet Volume 9.7 fL (9.4-12.3); Platelet Count 373 X10*3/uL (160-400); Red Blood Count 4.33 X10*6/uL (4.20-5.50); Red Cell Distribution Width 12.9 % (11.0-16.0); White Blood Count 14.5 X10*3/uL (4.8-10.8)
[2023-11-23 06:40] LABS: Anion Gap 14 (12-20); Blood Urea Nitrogen 6 mg/dL (9-16); Carbon Dioxide 26 mmol/L (22-29); Chloride 101 mmol/L (96-108); Estimated Glomerular Filt Rate > 60; Glucose Fasting 86 mg/dL (60-99); Potassium 3.1 mmol/L (3.3-5.1); Sodium 138 mmol/L (135-145)
[2023-11-23 07:04] LABS: Atypical Lymph Absolute Manual 0.3 x10*3/uL; Atypical Lymphs Percent Manual 2 % (0-6); Band Neutrophils Percent 0 % (3-5); Eosinophils Absolute Manual 0.6 X10*3/uL (0.0-0.4); Eosinophils Percent Manual 4 % (0-4); Lymphocytes Absolute Manual 3.9 X10*3/uL (1.2-4.9); Lymphocytes Percent Manual 27 % (20-40); Monocytes Absolute Manual 0.7 X10*3/uL (0.1-1.2); Monocytes Percent Manual 5 % (2-11); Neutrophils Percent Manual 62 % (45-73)
[2023-11-23 07:06] LABS: Large Platelet PRESENT; Platelet Estimate NORMAL (NORMAL); Platelet Morphology Comment NOTED; RBC Morphology NORMAL
[2023-11-23] MEDS: 0.9 % Sodium Chloride Flush 3 ML SYRINGE IVFLUSH ×2 (07:24→19:43)
[2023-11-23] MEDS: LORazepam 2 MG/ML VIAL 0.5 MG IVPUSH ×2 (07:32→17:52)
--- NOTE | 2023-11-23 08:16 | PM.PNGS ---
Subjective Subjective Date of Service: 11/23/23 Interval history: Patient states her abdominal symptoms are somewhat improved. She passed some flatus and stool. Had some nausea and vomiting earlier but this is better as well. White blood cell count markedly improved Physical Exam Vital Signs: Vital Signs: Last Vital Signs Temp 98.0 F 11/23/23 03:50 Pulse 91 11/23/23 03:50 Resp 18 11/23/23 03:50 BP 140/98 H 11/23/23 03:50 Pulse Ox 95 11/23/23 03:50 O2 Del Method Room Air 11/23/23 03:50 BMI result Body Mass Index 51.3 GI: Other: Abdomen very corpulent, soft, benign Objective Data Active Medications Acetaminophen (Acetaminophen 325 Mg Tablet) 650 mg PO Q6H PRN PRN Reason: Pain, Mild (Pain Scale 1-3), fever or headache Al Hydroxide/Mg Hydroxide (Magnesium Hydrox/Alum Hydrox 30 Ml Oral.Susp) 30 ml PO Q4H PRN PRN Reason: Heartburn Aripiprazole (Aripiprazole 15 Mg Tablet) 15 mg PO BID [facility] Last Admin: 11/23/23 07:27 Dose: Not Given Documented By: LORRAINE Non-Admin Reason: Patient Refused Bupropion HCl (Bupropion Hcl Xl 150 Mg Tab.Er.24h) 150 mg PO DAILY [facility] Last Admin: 11/23/23 07:27 Dose: Not Given Documented By: LORRAINE Non-Admin Reason: Patient Refused Calcium Carbonate (Calcium Carbonate 750 Mg Tab.Chew) 750 mg PO Q4H PRN PRN Reason: Heartburn Last Admin: 11/22/23 20:50 Dose: 750 mg Documented By: JAKUB Guanfacine HCl (Guanfacine Hcl Er 1 Mg Tab.Er.24h) 1 mg PO BID [facility] Last Admin: 11/23/23 07:27 Dose: Not Given Documented By: OLRRAINE Non-Admin Reason: Patient Refused Hydromorphone HCl (Hydromorphone Hcl 0.5 Mg/0.5 Ml Syringe) 0.5 mg IVPUSH Q2H PRN; Protocol PRN Reason: Pain, Severe (Pain Scale 7-10) Last Admin: 11/23/23 07:23 Dose: 0.5 mg Documented By: LORRAINE Ketorolac Tromethamine (Ketorolac Tromethamine 30 Mg/Ml Vial) 30 mg IVPUSH Q6H PRN PRN Reason: Pain, Mild (Pain Scale 1-3) Lorazepam (Lorazepam 2 Mg/Ml Vial) 0.5 mg IVPUSH Q6H PRN PRN Reason: Anxiety Last Admin: 11/23/23 07:32 Dose: 0.5 mg Documented By: LORRAINE Magnesium Hydroxide (Milk Of Magnesia 30 Ml Oral.Susp) 30 ml PO DAILY PRN PRN Reason: Constipation Melatonin (Melatonin 3 Mg Tablet) 6 mg PO BEDTIME PRN PRN Reason: Insomnia Metoclopramide HCl (Metoclopramide Hcl 10 Mg/2 Ml Vial) 10 mg IVPUSH Q6H PRN PRN Reason: Nausea and Vomiting Last Admin: 11/23/23 03:44 Dose: 10 mg Documented By: JAKUB Sodium Chloride (0.9 % Sodium Chloride Flush 3 Ml Syringe) 3 ml IVFLUSH QSHIFT [facility] Last Admin: 11/23/23 07:24 Dose: 3 ml Documented By: LORRAINE Labs 11/23/23 05:50 11/23/23 05:50 Labs: Laboratory Results - last 24 hr 11/23/23 05:50 MCV 88.0 MCH 28.9 MCHC 32.8 RDW 12.9 Plt Count 373 MPV 9.7 Immature Gran % (Auto) Cancelled Neut % (Auto) Cancelled Lymph % (Auto) Cancelled [place] % (Auto) Cancelled Eos % (Auto) Cancelled Baso % (Auto) Cancelled Lymph # (Auto) Cancelled [place] # (Auto) Cancelled Eos # (Auto) Cancelled Baso # (Auto) Cancelled Abs Immat Gran (auto) Cancelled Absolute Neuts (auto) Cancelled Absolute Nucleated RBC 0.000 Nucleated RBC % (auto) 0.0 Neutrophils % (Manual) 62 Band Neutrophils % 0 L Lymphocytes % (Manual) 27 Atypical Lymphs % (Man) 2 Monocytes % (Manual) 5 Eosinophils % (Manual) 4 Abs Neuts (Manual) 9.0 H Lymphocytes # (Manual) 3.9 Atyp Lymphs # (Manual) 0.3 Monocytes # (Manual) 0.7 Eosinophils # (Manual) 0.6 H Platelet Estimate NORMAL Large Platelets PRESENT Plt Morphology Comment NOTED RBC Morphology NORMAL Anion Gap 14 Estim Creat Clear Calc 156.0 Estimated GFR > 60 Fasting Glucose 86 Calcium 10.0 Procedures Date of Service Date of Service: 11/23/23 Progress Note: A&P Assessment and plan (1) Abdominal pain: Status: Acute Plan Patient was tentatively scheduled for upper endoscopy per GI. Further interventions studies will be directed by the patient's clinical course in the results of the above-mentioned procedure. Time Spent With Patient Time: Total time managing care of this patient today ____ minutes. Quality Stroke Does the patient have a stroke diagnosis?: No VTE Prior VTE?: No VTE Risk Level:: Surgical - low VTE Device Contraindication: Treatment Not Indicated VTE Drug Contraindication: Treatment Not Indicated
[2023-11-23] MEDS: Famotidine/PF 20 MG/2 ML VIAL IVPUSH (09:23)
[2023-11-23] MEDS: Lactated Ringers 1,000 ML 100 ML IVCONT ×2 (09:23→22:04)
--- NOTE | 2023-11-23 10:57 | MHC.CM.PN ---
Per MD patient not medically cleared for dc. CM will continue to follow.
--- NOTE | 2023-11-23 12:14 | HO.ANESPROP2 ---
[facility] Active Problems Active Problems: All Active Problems Abdominal pain (Acute) Vomiting (Acute) Intussusception (Acute) Back pain (Acute) Surgical History History of Problems with Anesthesia: No Social History Social History Household Members: Family Housing: Apartment Do you presently have visiting nurse or other home services: No Patient Tobacco Use Status: Former Tobacco user Smoked in Last 30 Days: No Use of substances other than those prescribed or required for medical reasons: Yes Substance Use Type: Marijuana Substance Use Frequency: Occasionally Currently Displaying Signs/Symptoms of Drug Intoxication Withdrawal: No Have you been hit, kicked, punched, or otherwise hurt by someone within the past year? If so, by whom?: No Do you feel safe in your current relationship?: Yes Is there a partner from a previous relationship who is making you feel unsafe now?: No Are you made to feel afraid or neglected: No Advance Directives: No Advance Directives Information Provided: No Do you have a plan to hurt others: No Plan Recently lost weight without trying: No Eating poorly because of decreased appetite: No Nutrition Risks: Acute nausea or vomiting x1 week Patient : No service: No Meds Allergies Allergy/AdvReac Type Severity Reaction Status Date / Time No Known Allergies Allergy Unverified 11/21/23 19:31 Active Medications: Current Medications Acetaminophen (Acetaminophen 325 Mg Tablet) 650 mg PO Q6H PRN PRN Reason: Pain, Mild (Pain Scale 1-3), fever or headache Al Hydroxide/Mg Hydroxide (Magnesium Hydrox/Alum Hydrox 30 Ml Oral.Susp) 30 ml PO Q4H PRN PRN Reason: Heartburn Aripiprazole (Aripiprazole 15 Mg Tablet) 15 mg PO BID [facility] Last Admin: 11/23/23 07:27 Dose: Not Given Bupropion HCl (Bupropion Hcl Xl 150 Mg Tab.Er.24h) 150 mg PO DAILY [facility] Last Admin: 11/23/23 07:27 Dose: Not Given Calcium Carbonate (Calcium Carbonate 750 Mg Tab.Chew) 750 mg PO Q4H PRN PRN Reason: Heartburn Last Admin: 11/22/23 20:50 Dose: 750 mg Famotidine (Famotidine/Pf 20 Mg/2 Ml Vial) 20 mg IVPUSH DAILY [facility] Last Admin: 11/23/23 09:23 Dose: 20 mg Guanfacine HCl (Guanfacine Hcl Er 1 Mg Tab.Er.24h) 1 mg PO BID [facility] Last Admin: 11/23/23 07:27 Dose: Not Given Hydromorphone HCl (Hydromorphone Hcl 0.5 Mg/0.5 Ml Syringe) 0.5 mg IVPUSH Q2H PRN; Protocol PRN Reason: Pain, Severe (Pain Scale 7-10) Last Admin: 11/23/23 07:23 Dose: 0.5 mg Lactated Ringer's (Lr) 1,000 mls @ 100 mls/hr IVCONT .Q10H [facility] Last Admin: 11/23/23 09:23 Dose: 100 mls/hr Ketorolac Tromethamine (Ketorolac Tromethamine 30 Mg/Ml Vial) 30 mg IVPUSH Q6H PRN PRN Reason: Pain, Mild (Pain Scale 1-3) Lorazepam (Lorazepam 2 Mg/Ml Vial) 0.5 mg IVPUSH Q6H PRN PRN Reason: Anxiety Last Admin: 11/23/23 07:32 Dose: 0.5 mg Magnesium Hydroxide (Milk Of Magnesia 30 Ml Oral.Susp) 30 ml PO DAILY PRN PRN Reason: Constipation Melatonin (Melatonin 3 Mg Tablet) 6 mg PO BEDTIME PRN PRN Reason: Insomnia Metoclopramide HCl (Metoclopramide Hcl 10 Mg/2 Ml Vial) 10 mg IVPUSH Q6H PRN PRN Reason: Nausea and Vomiting Last Admin: 11/23/23 03:44 Dose: 10 mg Sodium Chloride (0.9 % Sodium Chloride Flush 3 Ml Syringe) [facility] Last Admin: 11/23/23 07:24 Dose: 3 ml Home Medications ?Medication ?Instructions ?Recorded ?Confirmed ?Last Taken ?Type aripiprazole 15 mg tablet 15 mg PO BID 11/22/23 11/22/23 11/15/23 History bupropion HCl 150 mg 24 hr tablet, 150 mg PO DAILY 11/22/23 11/22/23 11/15/23 History extended release clonazepam 1 mg tablet 1 mg PO DAILY PRN Anxiety 11/22/23 11/22/23 11/15/23 History guanfacine 1 mg tablet,extended 1 mg PO BID 11/22/23 11/22/23 11/15/23 History release 24 hr Exam Height,Weight and Vital Signs: Height 5 ft 6 in Weight 144.1 kg Last Vital Signs Temp 98 F 11/23/23 08:00 Pulse 89 11/23/23 08:00 Resp 16 11/23/23 08:00 BP 136/95 H 11/23/23 08:00 Pulse Ox 95 11/23/23 08:00 O2 Del Method Room Air 11/23/23 08:00 Pertinent Lab Results Pertinent Lab Results: Laboratory Tests 11/21/23 11/21/23 11/21/23 19:44 19:45 21:41 WBC 21.5 H RBC 4.73 Hgb 13.8 Hct 40.4 MCV 85.4 MCH 29.2 MCHC 34.2 RDW 12.9 Plt Count 470 H MPV 9.9 Immature Gran % (Auto) 0.6 H Neut % (Auto) 92.8 H Lymph % (Auto) 5.3 L [place] % (Auto) 1.0 L Eos % (Auto) 0.1 Baso % (Auto) 0.2 Lymph # (Auto) 1.1 L [place] # (Auto) 0.2 Eos # (Auto) 0.0 Baso # (Auto) 0.1 Abs Immat Gran (auto) 0.12 H Absolute Neuts (auto) 19.9 H Absolute Nucleated RBC 0.000 Nucleated RBC % (auto) 0.0 Neutrophils % (Manual) Band Neutrophils % Lymphocytes % (Manual) Atypical Lymphs % (Man) Monocytes % (Manual) Eosinophils % (Manual) Abs Neuts (Manual) Lymphocytes # (Manual) Atyp Lymphs # (Manual) Monocytes # (Manual) Eosinophils # (Manual) Platelet Estimate Large Platelets Plt Morphology Comment RBC Morphology Smear Tech's Comments VERIFIED Sodium 135 Potassium 3.7 Chloride 101 Carbon Dioxide 20 L Anion Gap 18 BUN 7 L Creatinine 0.85 Estim Creat Clear Calc 146.5 Estimated GFR > 60 Random Glucose 139 H Fasting Glucose Calcium 9.8 Magnesium 1.9 Total Bilirubin 0.4 Direct Bilirubin 0.1 AST 17 ALT 12 Alkaline Phosphatase 82 Troponin I High Sens < 2.7 Total Protein 8.6 H Albumin 4.5 Lipase 8 Beta HCG, Quant < 2 Urine Color Yellow Urine Appearance Cloudy Urine pH 6.0 Ur Specific [place] >= 1.030 H Urine Protein 30 (1+) H Urine Glucose (UA) Negative Urine Ketones >=160 Urine Blood Moderate (2+) H Urine Nitrite Negative Ur Leukocyte Esterase Moderate (2+) H Urine RBC 6-10 H Urine WBC 0-5 Ur Squamous Epith Cells 11-20 Urine Bacteria 2+ Hyaline Casts 0-2 Urine Opiates Screen POSITIVE H Ur Buprenorphine Scrn Not Detected Ur Oxycodone Screen Not Detected Urine Methadone Screen Not Detected Urine Fentanyl Screen Not Detected Ur Barbiturates Screen Not Detected Ur Phencyclidine Scrn Not Detected Ur Amphetamines Screen Not Detected U Benzodiazepines Scrn Not Detected Urine Cocaine Screen Not Detected U Marijuana (THC) Screen POSITIVE H Ethyl Alcohol < 10 11/21/23 11/23/23 23:45 05:50 WBC 14.5 H RBC 4.33 Hgb 12.5 Hct 38.1 MCV 88.0 MCH 28.9 MCHC 32.8 RDW 12.9 Plt Count 373 MPV 9.7 Immature Gran % (Auto) Cancelled Neut % (Auto) Cancelled Lymph % (Auto) Cancelled [place] % (Auto) Cancelled Eos % (Auto) Cancelled Baso % (Auto) Cancelled Lymph # (Auto) Cancelled [place] # (Auto) Cancelled Eos # (Auto) Cancelled Baso # (Auto) Cancelled Abs Immat Gran (auto) Cancelled Absolute Neuts (auto) Cancelled Absolute Nucleated RBC 0.000 Nucleated RBC % (auto) 0.0 Neutrophils % (Manual) 62 Band Neutrophils % 0 L Lymphocytes % (Manual) 27 Atypical Lymphs % (Man) 2 Monocytes % (Manual) 5 Eosinophils % (Manual) 4 Abs Neuts (Manual) 9.0 H Lymphocytes # (Manual) 3.9 Atyp Lymphs # (Manual) 0.3 Monocytes # (Manual) 0.7 Eosinophils # (Manual) 0.6 H Platelet Estimate NORMAL Large Platelets PRESENT Plt Morphology Comment NOTED RBC Morphology NORMAL Smear Tech's Comments Sodium 138 Potassium 3.1 L Chloride 101 Carbon Dioxide 26 Anion Gap 14 BUN 6 L Creatinine 0.79 Estim Creat Clear Calc 156.0 Estimated GFR > 60 Random Glucose Fasting Glucose 86 Calcium 10.0 Magnesium Total Bilirubin Direct Bilirubin AST ALT Alkaline Phosphatase Troponin I High Sens Total Protein Albumin Lipase Beta HCG, Quant Urine Color Dark Yellow Urine Appearance Cloudy Urine pH 6.0 Ur Specific [place] >= 1.030 H Urine Protein 100 (2+) H Urine Glucose (UA) Negative Urine Ketones 80 Urine Blood Trace H Urine Nitrite Negative Ur Leukocyte Esterase Negative Urine RBC 11-20 H Urine WBC 0-5 Ur Squamous Epith Cells >20 Urine Bacteria 2+ Hyaline Casts 11-20 Urine Opiates Screen Ur Buprenorphine Scrn Ur Oxycodone Screen Urine Methadone Screen Urine Fentanyl Screen Ur Barbiturates Screen Ur Phencyclidine Scrn Ur Amphetamines Screen U Benzodiazepines Scrn Urine Cocaine Screen U Marijuana (THC) Screen Ethyl Alcohol Airway Mallampati Class: III TM Dist: >3cm Neck ROM: Full Loose/Missing/Broken Teeth: No Heart: RRR Lungs: CTA Assessment and Plan Assessment Anesthesia Assessment: Anesthesia Plan Discussed and Chart Reviewed Final Anesthetic Review History of Problems with Anesthesia: No NPO: Yes ASA Class: III Final Preanesthetic Review: Meds/Allgs Chart Reviewed, Consent Obtained/Reviewed and Anes Risks/Benef Reviewed Procedure Risk: Intermediate Anesthetic Plan Anesthetic Plan: MAC: Disposition: Standard PACU
--- NOTE | 2023-11-23 13:26 | MHC.SHP ---
Pre-Procedural Eval Section A - 24 Hr Update-Section A only Date of Service: 11/23/23 The patient is an INPATIENT: Yes The patient has been examined within 24 hours of the surgical procedure. The History & Physical has been completed within 30 days and I have reviewed it.: Yes Section B - Complete if H&P > 30 days Chief Complaint: Abd Pain Allergies: Allergies Allergy/AdvReac Type Severity Reaction Status Date / Time No Known Allergies Allergy Unverified 11/21/23 19:31 Plan Diagnosis/Plan: Unchanged I have reviewed the history and physical and performed a pertinent physical examination on my patient. No changes have occurred unless specified. Time Spent With Patient Time: Total time managing care of this patient today ____ minutes.
--- NOTE | 2023-11-23 14:02 | P.OP_ITS ---
Operative Note Operative Note Date of Service: 11/23/23 Narrative: Procedure: Esophagogastroduodenoscopy Endoscopist: Winnie Dugan MD Indication: Nausea/vomiting Anesthesia Provider: Kaitlyn Peters CRNA Anesthesia Type: MAC ?? EGD Procedure:?? The procedure, indications, preparation and potential complications were reviewed with the patient, who indicated understanding and gave written informed consent to proceed. A physical exam was performed. The endoscope was introduced through the mouth, and advanced to the second part of duodenum. The mucosa was carefully examined on slow withdrawal of the endoscope. The patient tolerated the procedure well. There were no immediate complications.? ? EGD Findings:? * Esophagus:? Linear erosions and erythema from GEJ up to 35 cm with ulcerations at the level of GEJ at 38 cm. The Z line was at 38 cm. Middle esophagus forceps biopsies were obtained to rule out eosinophilic esophagitis. * Stomach:? Erythema, and a few erosions noted in the antrum. There was also a nodule with central umbilication in the pre-pyloric antrum ? pancreatic rest. Retroflexion was performed in the cardia that showed Hill grade II hiatal hernia. Random cold forceps gastric biopsies were taken to rule out H Pylori infection. * Duodenum:? Erythema, edema and erosions with heme in the duodenal bulb. Cold forceps biopsies were taken from duodenal bulb and second portion of the duodenum to rule out celiac sprue. ? EGD Impressions:? * Grade D esophagitis * Gastritis * Hiatal hernia * Antral nodule ? panc rest * Duodenitis ?? Recommendations:?? * Follow biopsy results. Our office will call or send a letter with results within 7-10 days. * Omeprazole 20 BID x 8 weeks and then once daily * Repeat EGD will be booked to document healing in a few months * If H pylori +, patient will be prescribed eradication therapy followed by test of cure. * Avoid NSAIDs. Above has been reviewed with the patient.
[2023-11-23] MEDS: Nicotine 14 MG PATCH.TD24 TRANSDERMA (15:47)
--- NOTE | 2023-11-23 17:09 | PM.UROCN ---
History of Present Illness Consult details Consult date: 11/23/23 Narrative: Aleyda is a 28-year-old female with history of kidney stones. She states that she had n/v and pain which felt like kidney stone pain CTAP - punctate right kidney stone, no hydronephrosis Renal US -No hydronephrosis, 3 mm left renal stone? (should have been visible on CT) PMFSH Social History Social History Household Members: Family Housing: Apartment Are you a primary animal care giver to a significant other at home: No Do you presently have visiting nurse or other home services: No Patient Tobacco Use Status: Current everyday Tobacco user Tobacco use type: Cigarette Cigarette Packs Per Day: 5 Cigarettes Per Day: 100.0 Substance Use Type: Marijuana service: No Meds Allergies Allergy/AdvReac Type Severity Reaction Status Date / Time No Known Allergies Allergy Verified 11/23/23 13:47 Active Medications: Current Medications Acetaminophen (Acetaminophen 325 Mg Tablet) 650 mg PO Q6H PRN PRN Reason: Pain, Mild (Pain Scale 1-3), fever or headache Al Hydroxide/Mg Hydroxide (Magnesium Hydrox/Alum Hydrox 30 Ml Oral.Susp) 30 ml PO Q4H PRN PRN Reason: Heartburn Aripiprazole (Aripiprazole 15 Mg Tablet) 15 mg PO BID [facility] Last Admin: 11/23/23 07:27 Dose: Not Given Bupropion HCl (Bupropion Hcl Xl 150 Mg Tab.Er.24h) 150 mg PO DAILY [facility] Last Admin: 11/23/23 07:27 Dose: Not Given Calcium Carbonate (Calcium Carbonate 750 Mg Tab.Chew) 750 mg PO Q4H PRN PRN Reason: Heartburn Last Admin: 11/22/23 20:50 Dose: 750 mg Famotidine (Famotidine/Pf 20 Mg/2 Ml Vial) 20 mg IVPUSH DAILY [facility] Last Admin: 11/23/23 09:23 Dose: 20 mg Guanfacine HCl (Guanfacine Hcl Er 1 Mg Tab.Er.24h) 1 mg PO BID [facility] Last Admin: 11/23/23 07:27 Dose: Not Given Hydromorphone HCl (Hydromorphone Hcl 0.5 Mg/0.5 Ml Syringe) 0.5 mg IVPUSH Q2H PRN; Protocol PRN Reason: Pain, Severe (Pain Scale 7-10) Last Admin: 11/23/23 07:23 Dose: 0.5 mg Lactated Ringer's (Lr) 1,000 mls @ 100 mls/hr IVCONT .Q10H [facility] Last Admin: 11/23/23 16:49 Dose: Not Given Ketorolac Tromethamine (Ketorolac Tromethamine 30 Mg/Ml Vial) 30 mg IVPUSH Q6H PRN PRN Reason: Pain, Mild (Pain Scale 1-3) Lorazepam (Lorazepam 2 Mg/Ml Vial) 0.5 mg IVPUSH Q6H PRN PRN Reason: Anxiety Last Admin: 11/23/23 07:32 Dose: 0.5 mg Magnesium Hydroxide (Milk Of Magnesia 30 Ml Oral.Susp) 30 ml PO DAILY PRN PRN Reason: Constipation Melatonin (Melatonin 3 Mg Tablet) 6 mg PO BEDTIME PRN PRN Reason: Insomnia Metoclopramide HCl (Metoclopramide Hcl 10 Mg/2 Ml Vial) 10 mg IVPUSH Q6H PRN PRN Reason: Nausea and Vomiting Last Admin: 11/23/23 03:44 Dose: 10 mg Naloxone HCl (Naloxone Hcl 0.4 Mg/Ml Vial) 0.04 mg IVPUSH Q5M PRN PRN Reason: Excessive sedation or RR < 8 Nicotine (Nicotine 14 Mg Patch.Td24) 14 mg TRANSDERMA DAILY [facility] Last Admin: 11/23/23 15:47 Dose: 14 mg Sodium Chloride (0.9 % Sodium Chloride Flush 3 Ml Syringe) 3 ml IVFLUSH QSHIFT [facility] Last Admin: 11/23/23 14:30 Dose: Not Given Home Medications ?Medication ?Instructions ?Recorded ?Confirmed ?Last Taken ?Type aripiprazole 15 mg tablet 15 mg PO BID 11/22/23 11/22/23 11/15/23 History bupropion HCl 150 mg 24 hr tablet, 150 mg PO DAILY 11/22/23 11/22/23 11/15/23 History extended release clonazepam 1 mg tablet 1 mg PO DAILY PRN Anxiety 11/22/23 11/22/23 11/15/23 History guanfacine 1 mg tablet,extended 1 mg PO BID 11/22/23 11/22/23 11/15/23 History release 24 hr Physical Exam Vital Signs: Vital Signs: Last Vital Signs Temp 98.0 F 11/23/23 15:05 Pulse 72 11/23/23 15:05 Resp 18 11/23/23 15:05 BP 126/82 11/23/23 15:05 Pulse Ox 95 11/23/23 15:05 O2 Del Method Room Air 11/23/23 15:05 BMI result Body Mass Index 51.3 Const: General: cooperative, healthy appearing and no acute distress Orientation/consciousness: patient oriented x3 HEENT: Head: Yes normal to inspection, Yes normocephalic and Yes atraumatic Eyes: Conjunctivae: conjunctivae normal Neck: Neck: Yes normal visual inspection and Yes trachea midline Chest: Chest palpation & inspection: normal inspection of the chest Resp: Effort & Inspection: normal respiratory effort Cardio: Rate: regular rate GI: Inspection: Yes normal to inspection Palpation (GI): Soft to palpation : General: Yes CVA tenderness (left) Back/Spine/Pelvis: Back: CVA tenderness (left) Neuro: General: patient oriented x3 Extrem: General: No edema Psych: Appearance: grossly normal Results Labs 11/24/23 07:00 11/23/23 05:50 Labs: Abnormal lab results 11/23/23 Range/Units 05:50 WBC 14.5 H (4.8-10.8) X10*3/uL Band Neutrophils % 0 L (3-5) % Abs Neuts (Manual) 9.0 H (2.0-8.3) X10*3/uL Eosinophils # (Manual) 0.6 H (0.0-0.4) X10*3/uL Potassium 3.1 L (3.3-5.1) mmol/L BUN 6 L (9-16) mg/dL Short CBC 11/23/23 Range/Units 05:50 WBC 14.5 H (4.8-10.8) X10*3/uL Hgb 12.5 (12.0-16.0) g/dl Hct 38.1 (37.0-47.0) % Plt Count 373 (160-400) X10*3/uL BMP 11/23/23 05:50 Sodium 138 Potassium 3.1 L Chloride 101 Carbon Dioxide 26 BUN 6 L Creatinine 0.79 Calcium 10.0 Urine 11/21/23 11/21/23 Range/Units 21:41 23:45 Urine Color Yellow Dark Yellow Urine Appearance Cloudy Cloudy Urine pH 6.0 6.0 (5.0-9.0) Ur Specific [place] >= 1.030 H >= 1.030 H (1.005-1.025) Urine Protein 30 (1+) H 100 (2+) H (Neg-Trace) mg/dL Urine Glucose (UA) Negative Negative (Negative) mg/dL All other labs normal. Imaging Additional studies: Date of Service: 11/21/23 CT ABDOMEN AND PELVIS WITHOUT CONTRAST CLINICAL INFORMATION: Left-sided flank pain. COMPARISON: None available.. TECHNIQUE: Multidetector volumetric imaging was performed from the lung bases to the pubic without contrast. Sagittal and coronal reformatted images were obtained on the technologist workstation. This CT examination was performed using dose optimization techniques as appropriate, variously including the following: *Automated exposure control. *Adjustment of mA and/or kV according to patient size (this includes techniques or standardized protocols for targeted exams where dose is matched to indication/reason for exam; i.e. extremities or head). *Use of iterative reconstruction technique. DLP: 1789 mGy-cm FINDINGS: LUNG BASES: Minimal bilateral dependent atelectasis. Otherwise, no abnormalities of the visualized lung bases. No demonstrated abnormalities of the visualized cardiac structures. ABDOMEN/PELVIS: Liver, Biliary Ducts, and Gallbladder: The unenhanced liver is mildly enlarged, measuring 21 cm in intracranial caudal dimension. Normal hepatic attenuation without focal hepatic lesions or biliary ductal dilatation. The gallbladder is physiologically distended without pericholecystic fluid or significant gallbladder wall thickening. Partially calcified gallstone in the neck of the gallbladder. Pancreas: The pancreas is normal in appearance. Adrenal Glands: The adrenal glands are normal in appearance. Spleen: The spleen is normal in appearance. Kidneys and Ureters: The unenhanced kidneys are normal in size without evidence hydronephrosis. Nonobstructive punctate renal stone in the lower pole of the right kidney. No ureterolithiasis or hydroureter. Urinary Bladder: The urinary bladder is partially distended without focal wall thickening. No bladder calculi are demonstrated. Gastrointestinal System: The stomach is decompressed and therefore not well evaluated on this exam. Normal appearance of the duodenum. Short segment dilations of the jejunum, measuring up to 3.9 cm. There appears to be a small jejunojejunal intussusception without definitively demonstrated. Point on this noncontrast enhanced imaging. The remainder of the small volume is of normal caliber. The colon is normal in appearance without focal wall thickening or pericolonic inflammatory change. Normal appendix. Genitourinary: No demonstrated adnexal soft tissue masses. Intra-abdominal and Retroperitoneal Spaces: No intra-abdominal free fluid collections or gas. Mildly increased fat stranding and mildly increased small mesenteric lymph nodes. No retroperitoneal or inguinal lymphadenopathy. VASCULATURE: The abdominal aorta is of normal contour and caliber. MUSCULOSKELETAL: Mild multilevel degenerative changes of the spine. 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 No lytic or sclerotic osseous lesions demonstrated. No soft tissue masses demonstrated. IMPRESSION: 1. Short segment dilations of the jejunum, measuring up to 3.9 cm. There appears to be a small jejunojejunal intussusception without definitively demonstrated on this noncontrast enhanced imaging. The remainder of the small volume is of normal caliber. 2. Mild nonspecific mesenteric fat stranding and mild increased subcentimeter lymph nodes. 3. Mild nonspecific hepatomegaly. 4. Cholelithiasis without evidence of cholecystitis. 5. Nonobstructive right-sided nephrolithiasis. Date of Service: 11/23/23 US RETROPERITONEAL LIMITED (RENAL ONLY) CLINICAL INFORMATION: CVA tenderness. Nephrolithiasis. COMPARISON: CT abdomen and pelvis 11/21/2023. TECHNIQUE: Real-time imaging of the kidneys. FINDINGS: RIGHT KIDNEY: 12.2 x 4.9 x 4.8 cm (SAG x AP x TRV). The kidney is normal in size, contour, and echogenicity. Renal cortical thickness is normal. No focal parenchymal lesions. No hydronephrosis. Punctate calculus in the lower pole of the right kidney is better evaluated on prior CT. LEFT KIDNEY: 12.1 x 5.1 x 5.0 cm (SAG x AP x TRV). The kidney is normal in size, contour, and echogenicity. Renal cortical thickness is normal. No focal parenchymal lesions or hydronephrosis. There is a 0.3 cm nonobstructing calculus in the midpole of the left kidney. IMPRESSION: Small nonobstructing left renal calculus. Punctate calculus in the lower pole of the right kidney is better evaluated on prior CT. No hydronephrosis. Assessment and Plan (1) Abdominal pain: Status: Acute (2) Back pain: Status: Acute (3) Kidney stone: Status: Acute Plan Currently no hydronephrosis, discussed with the patient that it is possible that she passed a stone but currently no intervention Recommend outpatient fU. Procedures Date of Service Date of Service: 11/30/23
[2023-11-23] MEDS: Ketorolac Tromethamine 30 MG/ML VIAL IVPUSH (17:57)
[2023-11-23] MEDS: guanFACINE HCl ER 1 MG TAB.ER.24H PO (21:31)
[2023-11-23] MEDS: ARIPiprazole 15 MG TABLET PO (21:31)
[2023-11-24 04:00] VITALS: BP 141/95; PULSE 100; RESP 17; TEMP 36.4; O2SAT 93
[2023-11-24] MEDS: Metoclopramide HCl 10 MG/2 ML VIAL IVPUSH ×3 (04:20→18:07)
[2023-11-24] MEDS: HYDROmorphone HCl 0.5 MG/0.5 ML SYRINGE IVPUSH ×2 (04:30→07:58)
[2023-11-24 07:46] VITALS: BP 133/89; PULSE 80; RESP 18; TEMP 36.2; O2SAT 97
[2023-11-24 07:47] LABS: Basophils Absolute Auto 0.1 X10*3/uL (0.0-0.2); Basophils Percent Auto 0.3 % (0-2); Eosinophils Absolute Auto 0.3 X10*3/uL (0.0-0.4); Eosinophils Percent Auto 2.2 % (0-4); Hematocrit 39.5 % (37.0-47.0); Hemoglobin 12.8 g/dl (12.0-16.0); Imm Gran Abs Auto 0.04 X10*3/uL (0.00-0.03); Imm Gran Pct Auto 0.3 % (0.0-0.4); MANUAL DIFF FLAG SCAN; Mean Corpuscular HGB Conc 32.4 g/dl (31.0-35.0); Mean Corpuscular Hemoglobin 28.5 pg (27.0-33.0); Mean Platelet Volume 10.4 fL (9.4-12.3); Monocytes Absolute Auto 1.1 X10*3/uL (0.1-1.2); Monocytes Percent Auto 7.7 % (2-11); Neutrophils Absolute Auto 7.8 x10*3/uL (2.0-8.3); Neutrophils Percent Auto 54.5 % (45-73); Platelet Count 339 X10*3/uL (160-400); Red Blood Count 4.49 X10*6/uL (4.20-5.50); SCAN SMEAR FLAG 1; White Blood Count 14.3 X10*3/uL (4.8-10.8)
[2023-11-24] MEDS: Nicotine 14 MG PATCH.TD24 TRANSDERMA (07:57)
[2023-11-24] MEDS: buPROPion HCl XL 150 MG TAB.ER.24H PO (07:58)
[2023-11-24] MEDS: Lactated Ringers 1,000 ML 100 ML IVCONT (07:58)
[2023-11-24] MEDS: Omeprazole 20 MG CAPSULE.DR PO ×2 (07:58→16:32)
[2023-11-24] MEDS: guanFACINE HCl ER 1 MG TAB.ER.24H PO ×2 (07:58→19:48)
[2023-11-24] MEDS: ARIPiprazole 15 MG TABLET PO ×2 (07:58→19:48)
--- NOTE | 2023-11-24 07:58 | HO.POSTANES ---
Post Anesthesia Evaluation Post Anesthesia Evaluation Date of Service: 11/24/23 Vital Signs: Vital Signs Temp Pulse Resp BP Pulse Ox O2 Del Method 11/24/23 07:46 97.1 F 80 18 133/89 97 Room Air 11/24/23 04:00 97.6 F 100 17 141/95 H 93 Room Air 11/23/23 20:00 97.8 F 85 18 139/76 96 Room Air Anesthesia: Monitored Mental Status: Awake Pain Control: Satisfactory Nausea/Vomiting: None Hydration: Adequate Anesthesia-Related Issues: No Anes. Related Issues
[2023-11-24 08:59] LABS: SLIDE REVIEW VERIFIED
[2023-11-24] MEDS: Calcium Carbonate 750 MG TAB.CHEW PO (09:06)
[2023-11-24] MEDS: LORazepam 2 MG/ML VIAL 0.5 MG IVPUSH (09:07)
--- NOTE | 2023-11-24 10:10 | P.PNGS_ITS ---
Subjective Subjective Date of Service: 11/24/23 <Madhavi Souza PA-C - Last Filed: 11/24/23 10:14> 11/24/23 <Finn Schmidt MD - Last Filed: 11/24/23 10:15> Interval history: Had EGD yesterday. Was able to tolerate some solid food last night but reports vomiting early this morning. C/o continued left flank pain but improved. <Madhavi Souza PA-C - Last Filed: 11/24/23 10:14> Physical Exam 2 Vital Signs: Vital Signs: Last Vital Signs Temp 97.1 F 11/24/23 07:46 Pulse 80 11/24/23 07:46 Resp 18 11/24/23 07:46 BP 133/89 11/24/23 07:46 Pulse Ox 97 11/24/23 07:46 O2 Del Method Room Air 11/24/23 07:46 BMI result Body Mass Index 51.3 <KEELY Herrera Last Filed: 11/24/23 10:14> Const: General: comfortable, no acute distress, alert and anxious < Madhavi Souza PA-C - Last Filed: 11/24/23 10:14> Orientation/consciousness: patient oriented x3 <KEELY Herrera Last Filed: 11/24/23 10:14> Resp: Effort & Inspection: normal respiratory effort <Madhavi Souza PA-C - Last Filed: 11/24/23 10:14> GI: Inspection: No distended <Madhavi Souza PA-C - Last Filed: 11/24/23 10:14> Palpation (GI): Soft to palpation and nontender <Madhavi Souza PA-C - Last Filed: 11/24/23 10:14> Skin: General skin exam: no rashes or lesions noted <KEELY Herrera Last Filed: 11/24/23 10:14> Neuro: General: patient oriented x3 <KEELY Herrera Last Filed: 11/24/23 10:14> Objective Data Active Medications Acetaminophen (Acetaminophen 325 Mg Tablet) 650 mg PO Q6H PRN PRN Reason: Pain, Mild (Pain Scale 1-3), fever or headache Al Hydroxide/Mg Hydroxide (Magnesium Hydrox/Alum Hydrox 30 Ml Oral.Susp) 30 ml PO Q4H PRN PRN Reason: Heartburn Aripiprazole (Aripiprazole 15 Mg Tablet) 15 mg PO BID COUNT INCLUDES THE [facility] Last Admin: 11/24/23 07:58 Dose: 15 mg Documented By: LORRAINE Bupropion HCl (Bupropion Hcl Xl 150 Mg Tab.Er.24h) 150 mg PO DAILY COUNT INCLUDES THE [facility] Last Admin: 11/24/23 07:58 Dose: 150 mg Documented By: LORRAINE Calcium Carbonate (Calcium Carbonate 750 Mg Tab.Chew) 750 mg PO Q4H PRN PRN Reason: Heartburn Last Admin: 11/24/23 09:06 Dose: 750 mg Documented By: NATHAN Guanfacine HCl (Guanfacine Hcl Er 1 Mg Tab.Er.24h) 1 mg PO BID COUNT INCLUDES THE [facility] Last Admin: 11/24/23 07:58 Dose: 1 mg Documented By: LORRAINE Hydromorphone HCl (Hydromorphone Hcl 0.5 Mg/0.5 Ml Syringe) 0.5 mg IVPUSH Q2H PRN; Protocol PRN Reason: Pain, Severe (Pain Scale 7-10) Last Admin: 11/24/23 07:58 Dose: 0.5 mg Documented By: LORRAINE Lactated Ringer's (Lr) 1,000 mls @ 100 mls/hr IVCONT .Q10H COUNT INCLUDES THE [facility] Last Admin: 11/24/23 07:58 Dose: 100 mls/hr Documented By: LORRAINE Lorazepam (Lorazepam 2 Mg/Ml Vial) 0.5 mg IVPUSH Q6H PRN PRN Reason: Anxiety Last Admin: 11/24/23 09:07 Dose: 0.5 mg Documented By: NATHAN Magnesium Hydroxide (Milk Of Magnesia 30 Ml Oral.Susp) 30 ml PO DAILY PRN PRN Reason: Constipation Melatonin (Melatonin 3 Mg Tablet) 6 mg PO BEDTIME PRN PRN Reason: Insomnia Metoclopramide HCl (Metoclopramide Hcl 10 Mg/2 Ml Vial) 10 mg IVPUSH Q6H PRN PRN Reason: Nausea and Vomiting Last Admin: 11/24/23 09:07 Dose: 10 mg Documented By: NATHAN Naloxone HCl (Naloxone Hcl 0.4 Mg/Ml Vial) 0.04 mg IVPUSH Q5M PRN PRN Reason: Excessive sedation or RR < 8 Nicotine (Nicotine 14 Mg Patch.Td24) 14 mg TRANSDERMA DAILY COUNT INCLUDES THE [facility] Last Admin: 11/24/23 07:57 Dose: 14 mg Documented By: LORRAINE Omeprazole (Omeprazole 20 Mg Capsule.) 20 mg PO BID@0630,1630 COUNT INCLUDES THE [facility] Last Admin: 11/24/23 07:58 Dose: 20 mg Documented By: LORRAINE Sodium Chloride (0.9 % Sodium Chloride Flush 3 Ml Syringe) 3 ml IVFLUSH QSHIFT COUNT INCLUDES THE [facility] Last Admin: 11/24/23 07:10 Dose: Not Given Documented By: LORRAINE Non-Admin Reason: IV Running <Madhavi Souza PA-C - Last Filed: 11/24/23 10:14> Labs CBC & Chem 7: 11/24/23 07:00 11/23/23 05:50 <Madhavi Souza PA-C - Last Filed: 11/24/23 10:14> Labs: Laboratory Results - last 24 hr 11/23/23 11/24/23 06:20 07:00 MCV 88.0 MCH 28.5 MCHC 32.4 RDW 13.0 Plt Count 339 MPV 10.4 Immature Gran % (Auto) 0.3 Neut % (Auto) 54.5 Lymph % (Auto) 35.0 Ralls % (Auto) 7.7 Eos % (Auto) 2.2 Baso % (Auto) 0.3 Lymph # (Auto) 5.0 H Ralls # (Auto) 1.1 Eos # (Auto) 0.3 Baso # (Auto) 0.1 Abs Immat Gran (auto) 0.04 H Absolute Neuts (auto) 7.8 Absolute Nucleated RBC 0.000 Nucleated RBC % (auto) 0.0 Smear Tech's Comments VERIFIED Complement C4 33 <Madhavi Souza PA-C - Last Filed: 11/24/23 10:14> Procedures Date of Service Date of Service: 11/24/23 <Madhavi Souza PA-C - Last Filed: 11/24/23 10:14> 11/24/23 <Finn Schmidt MD - Last Filed: 11/24/23 10:15> Progress Note: A&P Assessment and plan (1) Abdominal pain: Status: Acute <Madhavi Souza PA-C - Last Filed: 11/24/23 10:14> (2) Vomiting: Status: Acute <Madhavi Souza PA-C - Last Filed: 11/24/23 10:14> Assessment and Plan: EGD yesterday showed esophagitis, Gastritis, Hiatal hernia, Antral nodule, Duodenitis. Biopsies pending. Started on omeprazole 20mg PO BID per GI recommendations. Will reassess later today, if improved and tolerating diet stable for dc to home with GI f/u. F/u with PCP as well. Patient comfortable with plan. Seen by urology yesterday- no stone, possibly passed. No further intervention needed. <Madhavi Souza PA-C - Last Filed: 11/24/23 10:14> Time Spent With Patient Time: Total time managing care of this patient today ____ minutes. <Madhavi Souza PA-C - Last Filed: 11/24/23 10:14> Quality Stroke Does the patient have a stroke diagnosis?: No <Madhavi Souza PA-C - Last Filed: 11/24/23 10:14> VTE Prior VTE?: No <Madhavi Souza PA-C - Last Filed: 11/24/23 10:14> VTE Risk Level:: Surgical - low <Madhavi Souza PA-C - Last Filed: 11/24/23 10:14> VTE Device Contraindication: Treatment Not Indicated <Madhavi Souza PA-C - Last Filed: 11/24/23 10:14> VTE Drug Contraindication: Treatment Not Indicated <Madhavi Souza PA-C - Last Filed: 11/24/23 10:14>
[2023-11-24 11:51] VITALS: O2SAT 98
[2023-11-24] MEDS: oxyCODONE HCl Immed Release 5 MG TABLET PO (13:05)
[2023-11-24] MEDS: ondansetron HCL 4 MG/2 ML VIAL IVPUSH (13:19)
[2023-11-24 15:09] VITALS: BP 121/70; PULSE 98; RESP 18; TEMP 36.3; O2SAT 97
[2023-11-24] MEDS: LORazepam 1 MG TABLET PO (16:57)
[2023-11-24 19:18] VITALS: BP 140/81; PULSE 89; RESP 18; TEMP 36.8; O2SAT 97
[2023-11-24] MEDS: oxyCODONE HCl Immed Release 5 MG TABLET 10 MG PO (19:49)
[2023-11-24] MEDS: 0.9 % Sodium Chloride Flush 3 ML SYRINGE IVFLUSH (19:51)
[2023-11-25] MEDS: LORazepam 1 MG TABLET PO (01:17)
[2023-11-25] MEDS: Omeprazole 20 MG CAPSULE.DR PO (06:26)
[2023-11-25 07:53] VITALS: BP 119/58; PULSE 74; RESP 16; TEMP 37.1; O2SAT 96
--- NOTE | 2023-11-25 09:19 | MHC.CM.PN ---
Patient medically cleared for dc home self care. Family at bedside to transport home.
[2023-11-25] MEDS: Nicotine 14 MG PATCH.TD24 TRANSDERMA (09:20)
--- NOTE | 2023-11-25 13:34 | PM.DS ---
DS: Providers Provider Date of Service: 11/25/23 Date of admission: 11/22/23 05:29 Date of discharge: 11/25/23 Primary care physician: Mary Queen MD Attending physician on admission: Finn Schmidt Consults: 11/22/23 10:18 Consult to Gastroenterology Routine Consulting Provider: Winnie Dugan Reason for consultation: postprandial vomiting Has provider been notified: No 11/23/23 09:56 Consult to Urology Routine Consulting Provider: [facility] [place] [facility] Reason for consultation: recurrent nephrolithiasis Attending physician on discharge: Finn Schmidt DS: Diagnosis Discharge Diagnosis (1) Abdominal pain: Status: Acute (2) Vomiting: Status: Acute DS: Summary Hospital Course Hospital Course: HPI AT ADMISSION: Mary Wilhelm is a 28 year old female with PMH of nephrolithiasis who presented to the ED with c/o upper back pain, nausea and vomiting. Patient is extremely anxious and hard to get a history from. History obtained from boyfriend and mother at bedside. She reports recurrent episodes of upper back pain, this current episode is left sided and began yesterday morning. She states it feels like her prior episodes of kidney stones. 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 She denies any abdominal pain. She does however endorse postprandial vomiting which has been ongoing for years and reports more frequent vomiting with this episode of pain. She has been passing flatus and moving her bowels normally. She reports she has IBS-D so her stools are normally looser. She denies however ever seeing a GI provider but reports having an extensive work up for her symptoms including an EGD which she reports was around 10 years ago. Due to the severity of this episode of pain, she presented to the ED for evaluation where work up included CBC, BMP, LFTs which was significant for leukocytosis of 21.5. CT scan abd/pelvis was obtained which showed a short segment of dilated jejunum with question of a small jejunojejunal intussusception. She had air and stool in her rectum. Unenhanced kidneys were normal with nonobstructive right-sided nephrolithiasis. She has received multiple doses of morphine, dilaudid, ketorolac with continued severe pain and zofran for nausea. HOSPITAL COURSE: She was admitted to the surgical service for further treatment of the abdominal pain. SBFT was obtained which showed contrast in the colon at 50min and therefore SBO and intussusception was therefore unlikely. Etiology of her symptomatology was unclear. GI consult for evaluation who recommended EGD. She was kept on clear liquids, IVF, PRN analgesics and antiemetics. Leukocytosis was felt to be reactive from vomiting and therefore empiric antibiotics were held with significant improvement in her leukocytosis the following day. She had continued colicky left flank/back pain and therefore renal US was obtained and Urology consult given her recurrent history of nephrolithiasis who felt it was possible that she passed a stone but currently no intervention and recommended outpatient follow up. Her EGD showed esophagitis, gastritis, duodenitis and GI recommended omeprazole 20mg PO BID for 8 weeks.This was initiated. Biopsies were taken and these were pending at discharge. Her nausea slowly improved. Her back pain improved. Her diet was slowly advanced. On the day of discharge she felt improved and was tolerating a diet without vomiting. Her pain was improved and controlled. She was discharged to home on 11/25/23 in stable condition. She is to follow up with her PCP upon discharge. She is to follow up with Dr. Dugan in a month. She was discharged on PPI therapy. Status at Discharge Functional status at discharge: independent ambulation Overall status at discharge: patient is progressing back to baseline Time Attestation Discharge Coordination Time (in mins): 35 Quality: Safe Use of Opioids Does Pt have an Active Cancer Diagnosis on the Problem List?: No Quality: Stroke Does the patient have a stroke diagnosis?: No Physical Exam Vital Signs: Vital Signs: Last Vital Signs Temp 98.8 F 11/25/23 07:53 Pulse 74 11/25/23 07:53 Resp 16 11/25/23 07:53 BP 119/58 L 11/25/23 07:53 Pulse Ox 96 11/25/23 07:53 O2 Del Method Room Air 11/25/23 07:53 BMI result Body Mass Index 51.3 Const: General: comfortable, no acute distress and alert Orientation/consciousness: patient oriented x3 Resp: Effort & Inspection: normal respiratory effort GI: Inspection: No distended Palpation (GI): Soft to palpation and nontender Skin: General skin exam: no rashes or lesions noted Neuro: General: patient oriented x3 and moves all extremities DS: Data Data Completed and Pending Completed studies during hospitalization [Text1]: Pending at discharge 11/23/23 13:55 Surgical [PTH] Routine Discharge Plan Discharge Anticipated Discharge Date/Time: 11/24/23 12:19 Patient Disposition: Home, Self-Care Discharge Diagnosis: gastritis, esophagitis, duodenitis Referrals: Physician,Unknown J [Physician] - 1 Week Winnie Dugan MD [Physician] - 1 Month Discharge Medications: New omeprazole 20 mg capsule,delayed release(DR/EC) 20 mg PO BID Qty: 60 0RF ondansetron 8 mg tablet,disintegrating 8 mg PO Q8H PRN (Reason: nausea and vomiting) Qty: 30 0RF oxycodone 5 mg tablet 5 mg PO Q6H PRN (Reason: pain (scale score 7-10)) Qty: 14 0RF Rx Instructions: Partial Fill upon patient request. omeprazole 20 mg capsule,delayed release(DR/EC) 20 mg PO DAILY Qty: 180 0RF Continued clonazepam 1 mg tablet 1 mg PO DAILY PRN (Reason: Anxiety) aripiprazole 15 mg tablet 15 mg PO BID bupropion HCl 150 mg tablet extended release 24 hr 150 mg PO DAILY guanfacine 1 mg tablet extended release 24 hr 1 mg PO BID Discharge Orders: Discharge Order (Routine); Ordered 11/25/23 Ordered By: Finn Schmidt Diet: Advance to usual diet Activity on Discharge: As tolerated Stand Alone Forms: Patient Portal Discharge page Print Language: Fijian Activity Restrictions/Additional Instructions: Follow up with your PCP. Follow up with Dr. Dugan (gastroenterology) Call Your Doctor If: ? ? -Your temperature exceeds 101.5? F? ? ? -You experience excessive pain or swelling ? ? -You have an unexpected reaction to medication ? ? -You experience continued vomiting/nausea Avoid all NSAIDs (including but not limited to Advil, ibuprofen, motrin, naprosyn, naproxen, Aspirin). Care Plan Goals: Return to baseline health and resume normal activities. Health Concerns: Gastritis, duodenitis, esophagitis Plan of Treatment: PPI therapy avoid NSAIDs f/u with GI, PCP Assessment: Improved Discharge Date/Time: 11/25/23 11:06
[2023-11-26 06:32] LABS: C1 Esterase Inhibitor 100 % (>=68)
== END 2023-11-25 11:06 | disposition home or self-care (01) | DRG 243 ==
LOC: HO.ED 11-22 01:29 → HO.EDOVER 11-22 05:36 → HO.S3 11-22 08:04
PROVIDERS: Emergency Medicine; Internal Medicine; Physician Assistant Surgical; Admitting Provider Surgery; Emergency Provider Emergency Medicine; PCP Internal Medicine; Visit Provider Surgery
PROC: 0DJ08ZZ Inspection of Upper Intestinal Tract, Via Natural or Artificial Opening Endoscopic (ICD-10-PCS; CPT 43235; principal; 2023-11-23 13:30)
DX: K20.90 Esophagitis, unspecified without bleeding (principal); F17.210 Nicotine dependence, cigarettes, uncomplicated; F41.9 Anxiety disorder, unspecified; Z71.6 Tobacco abuse counseling; K44.9 Diaphragmatic hernia without obstruction or gangrene; K29.70 Gastritis, unspecified, without bleeding; K29.80 Duodenitis without bleeding; Z87.442 Personal history of urinary calculi; Z79.899 Other long term (current) drug therapy
CPT/HCPCS: 36415; 74176; 74250; 76775; 80048; 80076; 80307; 81001; 81003; 83520; 83690; 83735; 84484; 84702; 85007; 85025; 85027; 86160; 86161; 88305; 88313; 88342; 93005; 99285; J0696; J1170; J1596; J1885; J2060; J2250; J2270; J2405; J2704; J2765; J7120

== ENCOUNTER 2023-11-22 05:29 | Outpatient (BNV) | payer OTHER, SELFPAY | END 2023-11-22 09:00 | PROVIDERS: Admitting Provider Surgery; Emergency Provider Emergency Medicine; Visit Provider Radiology Diagnostic Radiology | DX: R10.9 Unspecified abdominal pain (principal) | CPT/HCPCS: 74250 ==

== ENCOUNTER → 2023-11-22 05:29 | Outpatient (BNV) | payer OTHER, SELFPAY | PROVIDERS: Admitting Provider Surgery; Emergency Provider Emergency Medicine; PCP Internal Medicine; Visit Provider Urology | DX: R10.9 Unspecified abdominal pain (principal); M54.9 Dorsalgia, unspecified; N20.0 Calculus of kidney | CPT/HCPCS: 99222 ==

== ENCOUNTER → 2023-11-22 05:29 | Outpatient (BNV) | payer OTHER, SELFPAY | PROVIDERS: Admitting Provider Surgery; Emergency Provider Emergency Medicine; Visit Provider Physician Assistant Surgical | DX: R11.10 Vomiting, unspecified (principal) | CPT/HCPCS: 99222; 99232; 99239 ==

== ENCOUNTER → 2023-11-22 05:29 | Outpatient (BNV) | payer OTHER, SELFPAY | PROVIDERS: Admitting Provider Surgery; Emergency Provider Emergency Medicine; Visit Provider Internal Medicine | DX: K20.90 Esophagitis, unspecified without bleeding (principal); K29.70 Gastritis, unspecified, without bleeding; K29.80 Duodenitis without bleeding | CPT/HCPCS: 43239; 99223 ==

== ENCOUNTER 2023-12-03 04:25 | Emergency (ER) | payer OTHER, SELFPAY ==
[2023-12-03 04:34] VITALS: PULSE 85; O2SAT 97; BMI 48.4
[2023-12-03 04:39] VITALS: BP 143/91; PULSE 108; RESP 20; TEMP 36.3; O2SAT 108
--- NOTE | 2023-12-03 04:54 | PC.NURSE ---
pt reports drinking an unknown amount. Also endorses abdominal pain similar to recent episode in which she was hospitalized for. lab drawn. awaiting urine.
[2023-12-03 04:56] LABS: MANUAL DIFF FLAG NO
[2023-12-03 04:57] LABS: Basophils Absolute Auto 0.1 X10*3/uL (0.0-0.2); Basophils Percent Auto 0.4 % (0-2); Eosinophils Absolute Auto 0.1 X10*3/uL (0.0-0.4); Eosinophils Percent Auto 0.4 % (0-4); Hematocrit 39.9 % (37.0-47.0); Hemoglobin 13.2 g/dl (12.0-16.0); Imm Gran Abs Auto 0.06 X10*3/uL (0.00-0.03); Imm Gran Pct Auto 0.4 % (0.0-0.4); Lymphocytes Absolute Auto 2.6 X10*3/uL (1.2-4.9); Lymphocytes Percent Auto 18.1 % (20-40); Mean Corpuscular HGB Conc 33.1 g/dl (31.0-35.0); Mean Corpuscular Hemoglobin 28.8 pg (27.0-33.0); Mean Corpuscular Volume 87.1 fL (80.0-98.0); Mean Platelet Volume 9.7 fL (9.4-12.3); Monocytes Absolute Auto 0.6 X10*3/uL (0.1-1.2); Neutrophils Absolute Auto 10.8 x10*3/uL (2.0-8.3); Neutrophils Percent Auto 76.7 % (45-73); Platelet Count 477 X10*3/uL (160-400); Red Blood Count 4.58 X10*6/uL (4.20-5.50); White Blood Count 14.1 X10*3/uL (4.8-10.8)
--- NOTE | 2023-12-03 05:26 | MHC.EDTECH ---
pt states unable to void, dehydrated.
[2023-12-03 05:29] LABS: Alanine Aminotransferase 17 U/L (0-31); Albumin Level 4.3 g/dL (3.5-5.0); Alkaline Phosphatase 67 U/L (39-117); Anion Gap 21 (12-20); Aspartate Amino Transferase 19 U/L (5-31); Bilirubin Total 0.5 mg/dL (0.0-1.0); Blood Urea Nitrogen 7 mg/dL (9-16); Calcium 9.6 mg/dL (8.4-10.2); Carbon Dioxide 18 mmol/L (22-29); Chloride 105 mmol/L (96-108); Creatinine Clr Calc Pharmacy 141.6; Estimated Glomerular Filt Rate > 60; Ethanol 31 mg/dL; Glucose Random 97 mg/dL (60-115); Potassium 3.5 mmol/L (3.3-5.1); Sodium 140 mmol/L (135-145)
--- NOTE | 2023-12-03 05:45 | PC.NURSE ---
Notified provider of pt ethanol level despite pt appearing intoxicated, nauseous and reporting she was dehydrated. Provider aware
--- NOTE | 2023-12-03 06:16 | PC.NURSE ---
PT walked with a steady gait in no acute distress out of ED with significant and mother. PT states if they wont help me i will just go somewhere else
== END 2023-12-03 06:19 | disposition left against medical advice (07) ==
PROVIDERS: Emergency Provider Emergency Medicine
DX: R42 Dizziness and giddiness (principal); F10.90 Alcohol use, unspecified, uncomplicated; Y90.1 Blood alcohol level of 20-39 mg/100 ml; F17.210 Nicotine dependence, cigarettes, uncomplicated; Z53.21 Procedure and treatment not carried out due to patient leaving prior to being seen by health care provider
CPT/HCPCS: 36415; 80053; 80307; 85025; 99281; 99283

== ENCOUNTER 2023-12-12 19:32 | Emergency (ER) | payer OTHER, SELFPAY ==
--- NOTE | ~2023-12-12 | CT_ITS ---
EXAMINATION: CT ABDOMEN AND PELVIS WITHOUT CONTRAST CLINICAL INFORMATION: Right-sided flank pain, history of kidney stones. COMPARISON: Renal ultrasound 11/23/2023, CT abdomen and pelvis from the same day TECHNIQUE: Multidetector volumetric imaging was performed from the superior aspect of the liver through the pubic symphysis. Sagittal and coronal reformatted images were obtained on the technologist's workstation. This CT examination was performed using dose optimization techniques as appropriate, variously including the following: *Automated exposure control *Adjustment of mA and/or kV according to patient size (this includes techniques or standardized protocols for targeted exams where dose is matched to indication/reason for exam; i.e. extremities or head) *Use of iterative reconstruction technique DLP: 1188 mGy-cm FINDINGS: LUNG BASES: The visualized lung bases are unremarkable. LIVER, GALLBLADDER, AND BILIARY TREE: The liver is normal in size, shape, and attenuation. No focal hepatic lesion or biliary ductal dilatation is present. Cholelithiasis. PANCREAS: Unremarkable. SPLEEN: Unremarkable. ADRENAL GLANDS: Unremarkable. KIDNEYS AND URETERS: The kidneys are normal in size, shape, and attenuation. There is prominence of the right renal collecting system, no real or ureteral calculi are visualized, no stranding along the course of the visualized right ureter. BLADDER: The bladder is decompressed. GASTROINTESTINAL TRACT: The small and large bowel are unremarkable. The appendix is unremarkable. ABDOMINAL WALL: No significant hernia is appreciated. LYMPH NODES: Normal. VASCULAR: Unremarkable. PELVIC VISCERA: Unremarkable. OSSEOUS STRUCTURES: Unremarkable. CT/CT abdomen pelvis wo IV con IMPRESSION: 1. No hydronephrosis or renal calculi. 2. Cholelithiasis. Fleischner guidelines were followed. Electronically signed by: Nick Vital MD 12/12/2023 11:53 PM EDT
[2023-12-12 19:38] VITALS: BP 116/68; BP 146/80; PULSE 82; RESP 16; TEMP 36.9; O2SAT 98; BMI 55.2
--- NOTE | 2023-12-12 19:39 | ED.NAVMDI ---
HPI - Nausea/Vomiting/Diarrhea General Chief complaint: Abdominal Pain Stated complaint: kidney stones Time Seen by Provider: 12/12/23 23:59 Source: patient Mode of arrival: ambulatory Limitations: no limitations History of Present Illness ED Provider: Dr. Thelma Farley HPI Narrative: Patient comes to the emergency room complaining of right lower flank pain for couple of days. Patient reports increasing urination. Patient worried that she may have an STD. Patient states that she was seen in urgent care today, was told that she had an elevated white blood cell count and they asked her to come to emergency room. Patient states that she has history of kidney stones. Patient denies fever Related Data Home Medications ?Medication ?Instructions ?Recorded ?Confirmed aripiprazole 15 mg tablet 15 mg PO BID 11/22/23 11/22/23 bupropion HCl 150 mg 24 hr tablet, 150 mg PO DAILY 11/22/23 11/22/23 extended release clonazepam 1 mg tablet 1 mg PO DAILY PRN Anxiety 11/22/23 11/22/23 guanfacine 1 mg tablet,extended 1 mg PO BID 11/22/23 11/22/23 release 24 hr Previous Rx's ?Medication ?Instructions ?Recorded omeprazole 20 mg capsule,delayed 20 mg PO BID #60 caps 11/24/23 release ondansetron 8 mg disintegrating 8 mg PO Q8H PRN nausea and 11/25/23 tablet vomiting #30 tabs oxycodone 5 mg tablet 5 mg PO Q6H PRN pain (scale score 11/25/23 7-10) #14 tabs omeprazole 20 mg capsule,delayed 20 mg PO DAILY #180 caps 11/28/23 release ibuprofen 800 mg tablet 800 mg PO Q8H PRN pain #20 tabs 12/13/23 levofloxacin 500 mg tablet 500 mg PO DAILY #9 tabs 12/13/23 oxycodone 5 mg tablet 5 mg PO BID PRN pain #5 tabs 12/13/23 Allergies Allergy/AdvReac Type Severity Reaction Status Date / Time No Known Allergies Allergy Verified 12/12/23 19:47 Review of Systems Review of Systems: Constitutional : No Weight loss, No Fever, No Chills, No Night Sweats, No Fatigue, No Malaise ENT/Mouth : No Hearing loss, No Ear Pain, No Nasal Congestion, No Sinus Pain, No Hoarseness, No sore throat, No Rhinorrhea, No Swallowing Difficulty Eyes: No Eye Pain, No Swelling, No Redness, No Foreign Body, No Discharge, No Vision Changes Cardiovascular : No Chest Pain, No SOB, No Dyspnea on Exertion, No Orthopnea, No Edema, No Palpitations Respiratory : No Cough, No Sputum, No Wheezing, No Smoke Exposure, No Dyspnea Gastrointestinal : No Nausea, No Vomiting, No Diarrhea, No Constipation, No abdominal Pain, No Hematochezia, No Melena Genitourinary : no irregular bleeding, No Dysuria, No Urinary Frequency, No Hematuria, No Urinary Incontinence, No Urgency, complaining of right-sided Flank Pain, No Urinary Flow Changes, No Hesitancy Musculoskeletal : No joint pain, No Myalgias, No Joint Swelling Skin : No Skin Lesions, No rash Neuro : No Weakness, No Numbness, No Paresthesias, No Loss of Consciousness, No Dizziness, No Headache Psych : No Anxiety/Panic, No Depression, No SI/HI/AH/VH, No Social Issues, Heme/Lymph: No Bruising, No Bleeding,No Lymphadenopathy Endocrine : No Polyuria, No Polydipsia, No Temperature Intolerance [facility] Past Medical History Medical History (Updated 12/13/23 @ 00:30 by Thelma Farley MD) Kidney stone Social History Social History Household Members: Family Housing: Apartment Are you a primary point of care technician to a significant other at home: No Do you presently have visiting nurse or other home services: No Patient Tobacco Use Status: Current everyday Tobacco user Tobacco use type: Cigarette Cigarette Packs Per Day: 5 Cigarettes Per Day: 100.0 Substance Use Type: Marijuana Advance Directives: Yes Advance Directives on File: Yes Advance Directives Date on File: 11/28/23 Do you have a plan to hurt others: No Plan service: No Physical Exam Vital Signs: Vital Signs: Last Vital Signs Temp 97.7 F 12/13/23 00:46 Pulse 90 12/13/23 00:46 Resp 16 12/13/23 00:46 BP 128/89 12/13/23 00:46 Pulse Ox 96 12/13/23 00:46 O2 Del Method Room Air 12/13/23 00:46 BMI result Body Mass Index 55.2 Const: Other: Appearance: Alert. Oriented X3. Extremely anxious Eyes: Pupils equal, round and reactive to light. ENT: Pharynx normal. Neck: Normal inspection. Neck supple. No lymph nodes noted. No crepitus CVS: Normal heart rate and rhythm. Pulses normal. Normal S1 and S2 Respiratory: No respiratory distress. Breath sounds normal. No Wheezing. No rales Abdomen: Soft and nontender. No rigidity. No distention. Right flank pain Skin: Skin warm and dry. Normal skin color. Normal skin turgor. Extremities: No lower extremity edema. No Lacerations. No Rash Neuro: Oriented X 3. No motor deficit. No sensory deficit. Moving all extremities. No slurred speech. CN 2 through 12 grossly intact Psych: calm, cooperative, extremely anxious Course Course Course Narrative: This is an RME: Additional HPI, ROS, PE not included below will be deferred to primary provider. RME assessment and note performed by: Susan Gates PA-C This is a [id number], with a hx of kidney stones, who presents to the ER with complaintof right sided flank pain since today. No fevers or chills. No nausea, vomiting. Reporting dysuria. History of kidney stones in symptoms feel similar. She had leftover oxycodone therefore she took that prior to her arrival. Recent admission from November 21 through November 24 for question of intussusception Medications Administered Discontinued Medications Generic Name Dose Route Start Last Admin Trade Name Freq PRN Reason Stop Dose Admin Levofloxacin 750 mg 12/13/23 00:23 12/13/23 00:37 Levofloxacin 750 Mg Tablet PO 12/13/23 00:24 750 mg ONCE ONE Administration Oxycodone HCl 5 mg 12/13/23 00:23 12/13/23 00:37 Oxycodone Hcl Immed Release 5 Mg Tablet PO 12/13/23 00:24 5 mg ONCE ONE Administration Potassium Chloride 60 meq 12/13/23 00:01 12/13/23 00:33 Potassium Chloride Packet 20 Meq Packet PO 12/13/23 00:02 60 meq ONCE ONE Administration Medical Decision Making Medical Decision Making [facility] Narrative: -my interpretation of labs: Patient's white blood cell count normal, chemistry shows a potassium of 3.0 which was repleted p.o., normal LFTs -urine analysis shows that the patient has blood in the urine, small amount of leukocyte esterase, negative for nitrites, white blood cell count present, a large amount of squamous epithelial cells, and positive for bacteria. Given patient's symptoms, patient will be treated as a UTI/pyelonephritis. -patient was given the option of IM Toradol and then take p.o. medications. Patient states that she is afraid -very long conversation with the patient, patient will be given a prescription for ibuprofen and oxycodone for couple of days. -patient requesting to be tested for STDs. Discussed with the patient that the results will not be available today. If positive she will receive a phone call. Patient declined being treated for STDs today. Differential Diagnosis Differential Diagnoses: The differential diagnosis associated with the presentation includes (UTI, kidney stone, pyelonephritis, musculoskeletal pain, severe anxiety) Admission/Observation Consideration of admission/observation: Escalation of care including admission/observation considered (Given patient's presentation, observation was considered) Lab Data MDM Lab Attestation statement: I reviewed the patient's lab results. 12/12/23 19:52 12/12/23 19:52 Labs: Lab Results 12/12/23 12/12/23 12/13/23 Range/Units 19:52 20:17 00:32 WBC 10.6 (4.8-10.8) X10*3/uL RBC 4.11 L (4.20-5.50) X10*6/uL Hgb 12.0 (12.0-16.0) g/dl Hct 35.6 L (37.0-47.0) % MCV 86.6 (80.0-98.0) fL MCH 29.2 (27.0-33.0) pg MCHC 33.7 (31.0-35.0) g/dl RDW 13.6 (11.0-16.0) % Plt Count 381 (160-400) X10*3/uL MPV 10.0 (9.4-12.3) fL Immature Gran % (Auto) 0.3 (0.0-0.4) % Neut % (Auto) 66.3 (45-73) % Lymph % (Auto) 21.2 (20-40) % [place] % (Auto) 8.1 (2-11) % Eos % (Auto) 3.8 (0-4) % Baso % (Auto) 0.3 (0-2) % Lymph # (Auto) 2.3 (1.2-4.9) X10*3/uL [place] # (Auto) 0.9 (0.1-1.2) X10*3/uL Eos # (Auto) 0.4 (0.0-0.4) X10*3/uL Baso # (Auto) 0.0 (0.0-0.2) X10*3/uL Abs Immat Gran (auto) 0.03 (0.00-0.03) X10*3/uL Absolute Neuts (auto) 7.1 (2.0-8.3) x10*3/uL Absolute Nucleated RBC 0.000 (0.0-0.012) X10*3/uL Nucleated RBC % (auto) 0.0 (0.0-0.2) /100WBC Sodium 139 (135-145) mmol/L Potassium 3.0 L (3.3-5.1) mmol/L Chloride 102 (96-108) mmol/L Carbon Dioxide 23 (22-29) mmol/L Anion Gap 17 (12-20) BUN 7 L (9-16) mg/dL Creatinine 0.68 (0.5-1.4) mg/dL Estim Creat Clear Calc 165.0 Estimated GFR > 60 Random Glucose 104 (60-115) mg/dL Calcium 9.7 (8.4-10.2) mg/dL Total Bilirubin 0.5 (0.0-1.0) mg/dL Direct Bilirubin 0.2 (0.0-0.5) mg/dL AST 26 (5-31) U/L ALT 24 (0-31) U/L Alkaline Phosphatase 67 (39-117) U/L Total Protein 7.0 (6.5-8.0) g/dL Albumin 3.7 (3.5-5.0) g/dL Lipase 8 (8-78) U/L Beta HCG, Quant < 2 mIU/mL Urine Color Dark Yellow Urine Appearance Cloudy Urine pH 6.0 (5.0-9.0) Ur Specific [place] 1.020 (1.005-1.025) Urine Protein 30 (1+) H (Neg-Trace) mg/dL Urine Glucose (UA) Negative (Negative) mg/dL Urine Ketones 40 (Negative) mg/dL Urine Blood Large (3+) H (Negative) Urine Nitrite Negative (Negative) Ur Leukocyte Esterase Small (1+) H (Negative) Urine RBC >20 H (0-2) /HPF Urine WBC 21-50 H (0-5) /HPF Ur Squamous Epith Cells >20 (0-2) /HPF Urine Bacteria 1+ (None Seen) Hyaline Casts 0-2 (0-2) /LPF Chlam trachomat DNA PCR NOT DETECTED (Not Detect.) N.gonorrhoeae DNA (PCR) NOT DETECTED (Not Detect.) Independent Interpretation I performed an independent interpretation of an: CT Scan Radiology Impression Discussion of test interpretation with radiology: I have reviewed the radiologist's reading. Radiologist Impression: LUNG BASES: The visualized lung bases are unremarkable. LIVER, GALLBLADDER, AND BILIARY TREE: The liver is normal in size, shape, and attenuation. No focal hepatic lesion or biliary ductal dilatation is present. Cholelithiasis. PANCREAS: Unremarkable. SPLEEN: Unremarkable. ADRENAL GLANDS: Unremarkable. KIDNEYS AND URETERS: The kidneys are normal in size, shape, and attenuation. There is prominence of the right renal collecting system, no real or ureteral calculi are visualized, no stranding along the course of the visualized right ureter. BLADDER: The bladder is decompressed. GASTROINTESTINAL TRACT: The small and large bowel are unremarkable. The appendix is unremarkable. ABDOMINAL WALL: No significant hernia is appreciated. LYMPH NODES: Normal. VASCULAR: Unremarkable. PELVIC VISCERA: Unremarkable. OSSEOUS STRUCTURES: Unremarkable. CT/CT abdomen pelvis wo IV con IMPRESSION: 1. No hydronephrosis or renal calculi. 2. Cholelithiasis. Fleischner guidelines were followed. Independent Historian Clinical information obtained from an independent historian. History obtained from or confirmed by: Other (Mother) Critical Care Time Critical Care Time Critical Care Time: Yes Total Critical Care Time: 60 Attestation: I have personally provided critical care time. Time includes review of lab data, radiology results, discussion with consultants, and monitoring for potential decompensation. Intervention performed as documented. Discharge Plan Discharge Clinical Impression: Pyelonephritis Patient Disposition: Home, Self-Care Instructions: Kidney Infection (ED) Additional Instructions: Please follow-up with your primary care physician tomorrow. If you have any worsening or new symptoms, please return to the emergency room or call 911 Prescriptions: New levofloxacin 500 mg tablet 500 mg PO DAILY Qty: 9 0RF ibuprofen 800 mg tablet 800 mg PO Q8H PRN (Reason: pain) Qty: 20 0RF oxycodone 5 mg tablet 5 mg PO BID PRN (Reason: pain) Qty: 5 0RF Rx Instructions: Partial Fill upon patient request. No Action clonazepam 1 mg tablet 1 mg PO DAILY PRN (Reason: Anxiety) aripiprazole 15 mg tablet 15 mg PO BID bupropion HCl 150 mg tablet extended release 24 hr 150 mg PO DAILY guanfacine 1 mg tablet extended release 24 hr 1 mg PO BID omeprazole 20 mg capsule,delayed release(DR/EC) 20 mg PO BID Qty: 60 0RF ondansetron 8 mg tablet,disintegrating 8 mg PO Q8H PRN (Reason: nausea and vomiting) Qty: 30 0RF oxycodone 5 mg tablet 5 mg PO Q6H PRN (Reason: pain (scale score 7-10)) Qty: 14 0RF Rx Instructions: Partial Fill upon patient request. omeprazole 20 mg capsule,delayed release(DR/EC) 20 mg PO DAILY Qty: 180 0RF Stand Alone Forms: Work/School Release Interventions: ED Discharge Assessment Last Done: 12/13/23 00:46 Discharge Date/Time: 12/13/23 00:47 Print Language: Brazilian
[2023-12-12 19:56] LABS: MANUAL DIFF FLAG NO
[2023-12-12 19:58] LABS: Basophils Percent Auto 0.3 % (0-2); Eosinophils Absolute Auto 0.4 X10*3/uL (0.0-0.4); Eosinophils Percent Auto 3.8 % (0-4); Hematocrit 35.6 % (37.0-47.0); Imm Gran Abs Auto 0.03 X10*3/uL (0.00-0.03); Imm Gran Pct Auto 0.3 % (0.0-0.4); Lymphocytes Absolute Auto 2.3 X10*3/uL (1.2-4.9); Lymphocytes Percent Auto 21.2 % (20-40); Mean Corpuscular HGB Conc 33.7 g/dl (31.0-35.0); Mean Corpuscular Hemoglobin 29.2 pg (27.0-33.0); Mean Corpuscular Volume 86.6 fL (80.0-98.0); Monocytes Absolute Auto 0.9 X10*3/uL (0.1-1.2); Monocytes Percent Auto 8.1 % (2-11); Neutrophils Absolute Auto 7.1 x10*3/uL (2.0-8.3); Neutrophils Percent Auto 66.3 % (45-73); Platelet Count 381 X10*3/uL (160-400); Red Blood Count 4.11 X10*6/uL (4.20-5.50); Red Cell Distribution Width 13.6 % (11.0-16.0); White Blood Count 10.6 X10*3/uL (4.8-10.8)
[2023-12-12 20:21] LABS: Alanine Aminotransferase 24 U/L (0-31); Albumin Level 3.7 g/dL (3.5-5.0); Alkaline Phosphatase 67 U/L (39-117); Anion Gap 17 (12-20); Aspartate Amino Transferase 26 U/L (5-31); Bilirubin Direct 0.2 mg/dL (0.0-0.5); Bilirubin Total 0.5 mg/dL (0.0-1.0); Blood Urea Nitrogen 7 mg/dL (9-16); Calcium 9.7 mg/dL (8.4-10.2); Carbon Dioxide 23 mmol/L (22-29); Chloride 102 mmol/L (96-108); Estimated Glomerular Filt Rate > 60; Glucose Random 104 mg/dL (60-115); HCG Quantitative < 2 mIU/mL; Lipase 8 U/L (8-78); Sodium 139 mmol/L (135-145)
[2023-12-12 20:24] LABS: Appearance Urine Cloudy; Color Urine Dark Yellow; Glucose Urine UA Negative (Negative); Leukocyte Esterase Urine Small (1+) (Negative); Nitrite Urine Negative (Negative); UMIC TRIGGER UACC YES; Urine Blood Large (3+) (Negative); Urine Ketones 40 mg/dL (Negative); Urine Protein 30 (1+) mg/dL (Neg-Trace)
[2023-12-12 20:37] LABS: Bacteria Urine 1+ (None Seen); Hyaline Casts Urine 0-2 /LPF (0-2); RBC Urine >20 /HPF (0-2); Squamous Epithelial Cell Urine >20 /HPF (0-2); UACC Culture Trigger YES; WBC Urine 21-50 /HPF (0-5)
[2023-12-13] MEDS: Potassium Chloride Packet 20 MEQ PACKET 60 MEQ PO (00:33)
[2023-12-13] MEDS: levoFLOXacin 750 MG TABLET PO (00:37)
[2023-12-13] MEDS: oxyCODONE HCl Immed Release 5 MG TABLET PO (00:37)
[2023-12-13 00:46] VITALS: BP 128/89; PULSE 90; RESP 16; TEMP 36.5; O2SAT 96
[2023-12-13 09:13] LABS: CT PCR NOT DETECTED (Not Detect.); NG PCR NOT DETECTED (Not Detect.)
== END 2023-12-13 00:47 | disposition home or self-care (01) ==
PROVIDERS: Physician Assistant Medical; Emergency Provider Emergency Medicine
DX: N10 Acute pyelonephritis (principal); R11.2 Nausea with vomiting, unspecified; R10.2 Pelvic and perineal pain; R39.15 Urgency of urination; F17.210 Nicotine dependence, cigarettes, uncomplicated; Z79.899 Other long term (current) drug therapy
CPT/HCPCS: 36415; 74176; 80048; 80076; 81001; 83690; 84702; 85025; 87086; 87491; 87591; 99283; 99284

== ENCOUNTER 2024-09-18 01:42 | Inpatient (IN) | payer OTHER, SELFPAY ==
[2024-09-18] VITALS (8 sets, daily range): BP systolic 116–161; BP diastolic 40–102; PULSE 81–117; RESP 16–24; TEMP 36–36.9; O2SAT 95–100; BMI 54.1
--- NOTE | ~2024-09-18 | XR_ITS ---
EXAMINATION: XR CHEST CLINICAL INFORMATION: chest pain COMPARISON: None available. TECHNIQUE: Frontal view of the chest was obtained. FINDINGS: No consolidation, pleural fissure pneumothorax. No pleural effusion. Cardiomediastinal silhouette size is normal. Osseous structures are intact. XR/XR chest 1V IMPRESSION: No acute airspace disease. Electronically signed by: Sage Pritchett MD 09/18/2024 09:37 AM EDT
--- NOTE | ~2024-09-18 | CT_ITS ---
EXAMINATION: CT ABDOMEN AND PELVIS WITHOUT CONTRAST CLINICAL INFORMATION: Abdominal pain,? Stone COMPARISON: 12/12/2023 TECHNIQUE: Multidetector volumetric imaging was performed from the superior aspect of the liver through the pubic symphysis. Sagittal and coronal reformatted images were obtained on the technologist's workstation. This CT examination was performed using dose optimization techniques as appropriate, variously including the following: *Automated exposure control *Adjustment of mA and/or kV according to patient size (this includes techniques or standardized protocols for targeted exams where dose is matched to indication/reason for exam; i.e. extremities or head) *Use of iterative reconstruction technique FINDINGS: LUNG BASES: Lung bases are clear. No effusions. Small to moderate size type I hiatus hernia. Heart size normal. LIVER, GALLBLADDER, AND BILIARY TREE: The unenhanced liver is normal in size and shape, with mild diffuse hypoattenuation consistent with fatty infiltration. No focal hepatic lesion or biliary ductal dilatation is present. Gallbladder demonstrates the presence of a solitary 1.8 cm intraluminal gallstone, but is otherwise normal imaging appearance. No wall thickening or pericholecystic inflammation. PANCREAS: Unremarkable. SPLEEN: Unremarkable. ADRENAL GLANDS: Unremarkable. KIDNEYS AND URETERS: The kidneys are normal in size, shape, and attenuation. No hydronephrosis, hydroureter, or calculi seen. No perinephric stranding. BLADDER: Unremarkable. GASTROINTESTINAL TRACT: Normal appendix. Stomach is decompressed. The duodenal sweep appears normal. The small bowel is normal in course and caliber. No wall thickening or inflammation. The colon is normal in course and caliber. No wall thickening or inflammation noted. No rectal abnormality. ABDOMINAL WALL: No significant hernia is appreciated. LYMPH NODES: No abnormal lymphadenopathy present. VASCULAR: Unremarkable. PELVIC VISCERA: The uterus and adnexa are unremarkable. OSSEOUS STRUCTURES: There is no suspicious lytic or blastic bone lesion. No acute bony abnormalities. CT/CT abdomen pelvis wo IV con IMPRESSION: 1. No acute findings in the abdomen or pelvis. No urological calculus or obstruction. 2. Cholelithiasis. 3. Mild diffuse fatty infiltration of the liver. 4. Small to moderate-sized type I hiatus hernia. Electronically signed by: Luis Manuel Null MD 09/18/2024 08:35 AM EDT
[2024-09-18 02:06] LABS: Hematocrit 41.3 % (37.0-47.0); Hemoglobin 13.8 g/dl (12.0-16.0); Imm Gran Abs Auto 0.12 X10*3/uL (0.00-0.03); Imm Gran Pct Auto 0.5 % (0.0-0.4); Lymphocytes Absolute Auto 2.8 X10*3/uL (1.2-4.9); MANUAL DIFF FLAG NO; Mean Corpuscular HGB Conc 33.4 g/dl (31.0-35.0); Mean Corpuscular Hemoglobin 27.9 pg (27.0-33.0); Mean Corpuscular Volume 83.6 fL (80.0-98.0); NRBC Abs Auto 0.000 X10*3/uL (0.0-0.012); NRBC Pct Auto 0.0 /100WBC (0.0-0.2); Platelet Count 479 X10*3/uL (160-400); Red Blood Count 4.94 X10*6/uL (4.20-5.50); White Blood Count 22.3 X10*3/uL (4.8-10.8)
[2024-09-18 02:37] LABS: Alanine Aminotransferase 12 U/L (0-31); Albumin Level 4.8 g/dL (3.5-5.0); Alkaline Phosphatase 99 U/L (39-117); Anion Gap 25 (12-20); Aspartate Amino Transferase 28 U/L (5-31); Blood Urea Nitrogen 9 mg/dL (9-16); Calcium 9.9 mg/dL (8.4-10.2); Carbon Dioxide 17 mmol/L (22-29); Chloride 101 mmol/L (96-108); Creatinine Clr Calc Pharmacy 134.6; Estimated Glomerular Filt Rate > 60; Potassium 3.0 mmol/L (3.3-5.1); Sodium 140 mmol/L (135-145); Total Protein 9.0 g/dL (6.5-8.0)
[2024-09-18 05:33] LABS: Lipase 8 U/L (8-78)
[2024-09-18 05:45] LABS: Appearance Urine Clear; Glucose Urine UA Negative (Negative); PH 5.5 (5.0-9.0); Specific Gravity - Urine 1.025 (1.005-1.025); UMIC TRIGGER UACC YES
[2024-09-18 05:48] LABS: UACC Culture Trigger YES
[2024-09-18 05:55] LABS: Cannabinoid Screen Urine POSITIVE (Not Detect)
--- NOTE | 2024-09-18 06:37 | PC.NURSE ---
Patient continues to complaint of nausea, patient has had 3 episodes of vomiting since receiving Compazine. Dr. Farley made aware, no new orders at this time.
--- NOTE | 2024-09-18 07:05 | ED.NAVMDI ---
HPI - Nausea/Vomiting/Diarrhea General Chief complaint: Nausea/Vomiting/Diarrhea Stated complaint: Lower Back Pain n/v x1 day HX of Kidney Stones Time Seen by Provider: 09/18/24 07:00 Source: patient Mode of arrival: EMS Limitations: no limitations History of Present Illness HPI Narrative: This is a 29 years old the patient presented to the emergency department complaining of nausea vomiting lower back pain she has history of a kidney stone she was seen by me at 07:00 at beginning of shift, she stated that symptoms started last night MD elicited complaint: nausea and vomiting Onset (ago): day(s) (1) Description of vomiting: watery Description of diarrhea: watery Associated nausea: Yes Location of pain: none Radiation: diffuse Severity: mild Quality: cramping Exacerbating factors: none Relieving factors: none Associated symptoms: denies other symptoms Related Data Home Medications ?Medication ?Instructions ?Recorded ?Confirmed No Known Home Meds 09/18/24 09/18/24 Allergies Allergy/AdvReac Type Severity Reaction Status Date / Time No Known Allergies Allergy Verified 09/18/24 01:48 Review of Systems Review of Systems: Yes all other systems are reviewed and are negative Gastrointestinal: Gastrointestinal: Reports nausea and Reports vomiting PMFSH Past Medical History Medical History Kidney stone Social History Social History Household Members: Family Housing: Apartment Are you a primary intensive care unit nurse to a significant other at home: No Do you presently have visiting nurse or other home services: No Alcohol intake: never Patient Tobacco Use Status: Current everyday Tobacco user Tobacco use type: Cigarette Cigarette Packs Per Day: 5 Cigarettes Per Day: 100.0 Smoked in Last 30 Days: No Use of substances other than those prescribed or required for medical reasons: No Substance Use Type: Marijuana Advance Directives: Yes Advance Directives on File: Yes Advance Directives Date on File: 11/28/23 Patient : No service: No Physical Exam Exam: Exam: Patient is mild distress Vital Signs: Vital Signs: Last Vital Signs Temp 98.0 F 09/18/24 10:00 Pulse 92 09/18/24 12:00 Resp 16 09/18/24 12:00 BP 161/101 H 09/18/24 12:00 Pulse Ox 97 09/18/24 12:00 O2 Del Method Room Air 09/18/24 06:50 BMI result Body Mass Index 54.1 Const: General: well developed and alert Nutritional Appearance: average body habitus Orientation/consciousness: patient oriented x3 Limitations: no limitations HEENT: Head: Yes normal to inspection General nose exam: Normal external nose present Face and sinus: Yes normal facial exam Mouth: Normal oral and palatal mucosa present Neck: Neck: Yes normal visual inspection Chest: Chest palpation & inspection: normal inspection of the chest Resp: Effort & Inspection: normal respiratory effort Auscultation: clear to auscultation bilaterally Cardio: Jugular venous distension: no JVD Rate: regular rate Rhythm: regular rhythm GI: Inspection: Yes normal to inspection Palpation (GI): Soft to palpation, not firm and nontender Skin: General skin exam: no rashes or lesions noted, elasticity normal and turgor normal Neuro: General: patient oriented x3 Medications Administered Generic Name Dose Route Start Last Admin Trade Name Freq PRN Reason Stop Dose Admin Calcium Carbonate 750 mg 09/18/24 09:30 09/18/24 15:57 Calcium Carbonate 750 Mg Tab.Chew PO 750 mg Q4H PRN Administration Heartburn Potassium Cl/Dextrose/Lact Ringer's 20 meq in 1,000 mls @ 100 mls/hr 09/18/24 10:15 09/18/24 10:50 Kcl 20 Meq In 5 % Dex/Lact Rin IVCONT 100 mls/hr .Q10H KENYA Administration Pantoprazole Sodium 40 mg 09/18/24 16:30 09/18/24 15:57 Pantoprazole Sodium 40 Mg/10 Ml Vial IVPUSH 40 mg BID@0630,1630 KENYA Administration Sodium Chloride 3 ml 09/18/24 16:00 09/18/24 15:57 0.9 % Sodium Chloride Flush 3 Ml Syringe IVFLUSH Not Given QSHIFT KENYA Discontinued Medications Generic Name Dose Route Start Last Admin Trade Name Freq PRN Reason Stop Dose Admin Diazepam 5 mg 09/18/24 07:03 09/18/24 07:19 Diazepam 10 Mg/2 Ml Cartridge IVPUSH 09/18/24 07:04 5 mg STAT STA Administration Droperidol 1.25 mg 09/18/24 08:19 09/18/24 08:25 Droperidol 5 Mg/2 Ml Vial IVPUSH 09/18/24 08:20 1.25 mg ONCE ONE Administration Fentanyl 50 mcg 09/18/24 08:34 09/18/24 08:45 Fentanyl Citrate/Pf 100 Mcg/2 Ml Vial IVPUSH 09/18/24 08:35 50 mcg ONCE ONE Administration Protocol Lactated Ringer's 1,000 mls @ 999 mls/hr 09/18/24 07:15 09/18/24 08:44 Lr IV 09/18/24 08:15 Infused .Q1H1M KENYA Infusion Lactated Ringer's 1,000 mls @ 999 mls/hr 09/18/24 08:45 09/18/24 08:45 Lr IV 09/18/24 09:45 999 mls/hr .Q1H1M KENYA Administration Ketorolac Tromethamine 15 mg 09/18/24 07:03 09/18/24 07:19 Ketorolac Tromethamine 15 Mg/Ml Vial IVPUSH 09/18/24 07:04 15 mg ONCE ONE Administration Ondansetron HCl 4 mg 09/18/24 07:03 09/18/24 07:19 Ondansetron Hcl 4 Mg/2 Ml Vial IVPUSH 09/18/24 07:04 4 mg ONCE ONE Administration Pantoprazole Sodium 40 mg 09/18/24 09:52 09/18/24 10:06 Pantoprazole Sodium 40 Mg/10 Ml Vial IVPUSH 09/18/24 09:53 40 mg ONCE ONE Administration Potassium Chloride 20 meq 09/18/24 08:55 09/18/24 09:30 Potassium Chloride Packet 20 Meq Packet PO 09/18/24 08:56 20 meq ONCE ONE Administration Prochlorperazine Edisylate 10 mg 09/18/24 02:49 09/18/24 02:55 Prochlorperazine Edisylate 10 Mg/2 Ml Vial IVPUSH 09/18/24 02:50 10 mg ONCE ONE Administration Medical Decision Making Medical Decision Making [facility] Narrative: Patient is here with nausea vomiting back pain and wanting the nuances of kidney stone and we will administer IV fluid check CT UA Differential Diagnosis Differential Diagnoses: The differential diagnosis associated with the presentation includes kidney/or pyelonephritis/pyelonephritis Admission/Observation Consideration of admission/observation: Escalation of care including admission/observation considered Lab Data MDM Lab Attestation statement: I reviewed the patient's lab results. 09/18/24 13:50 09/18/24 13:50 Labs: Lab Results 09/18/24 09/18/24 Range/Units 02:02 05:38 WBC 22.3 H (4.8-10.8) X10*3/uL RBC 4.94 D (4.20-5.50) X10*6/uL Hgb 13.8 (12.0-16.0) g/dl Hct 41.3 (37.0-47.0) % MCV 83.6 (80.0-98.0) fL MCH 27.9 (27.0-33.0) pg MCHC 33.4 (31.0-35.0) g/dl RDW 13.1 (11.0-16.0) % Plt Count 479 H D (160-400) X10*3/uL MPV 10.0 (9.4-12.3) fL Immature Gran % (Auto) 0.5 H (0.0-0.4) % Neut % (Auto) 82.9 H (45-73) % Lymph % (Auto) 12.4 L (20-40) % [place] % (Auto) 3.5 (2-11) % Eos % (Auto) 0.4 (0-4) % Baso % (Auto) 0.3 (0-2) % Lymph # (Auto) 2.8 (1.2-4.9) X10*3/uL [place] # (Auto) 0.8 (0.1-1.2) X10*3/uL Eos # (Auto) 0.1 (0.0-0.4) X10*3/uL Baso # (Auto) 0.1 (0.0-0.2) X10*3/uL Abs Immat Gran (auto) 0.12 H (0.00-0.03) X10*3/uL Absolute Neuts (auto) 18.5 H (2.0-8.3) x10*3/uL Absolute Nucleated RBC 0.000 (0.0-0.012) X10*3/uL Nucleated RBC % (auto) 0.0 (0.0-0.2) /100WBC Sodium 140 (135-145) mmol/L Potassium 3.0 L (3.3-5.1) mmol/L Chloride 101 (96-108) mmol/L Carbon Dioxide 17 L (22-29) mmol/L Anion Gap 25 H (12-20) BUN 9 (9-16) mg/dL Creatinine 0.97 (0.5-1.4) mg/dL Estim Creat Clear Calc 134.6 Estimated GFR > 60 Random Glucose 113 (60-115) mg/dL Calcium 9.9 (8.4-10.2) mg/dL Total Bilirubin 0.5 (0.0-1.0) mg/dL AST 28 (5-31) U/L ALT 12 (0-31) U/L Alkaline Phosphatase 99 (39-117) U/L Total Protein 9.0 H (6.5-8.0) g/dL Albumin 4.8 (3.5-5.0) g/dL Lipase 8 (8-78) U/L Beta HCG, Quant < 2 mIU/mL Urine Color Yellow Urine Appearance Clear Urine pH 5.5 (5.0-9.0) Ur Specific [place] 1.025 (1.005-1.025) Urine Protein 30 (1+) H (Neg-Trace) mg/dL Urine Glucose (UA) Negative (Negative) mg/dL Urine Ketones >=160 (Negative) mg/dL Urine Blood Moderate (2+) H (Negative) Urine Nitrite Negative (Negative) Ur Leukocyte Esterase Small (1+) H (Negative) Urine RBC 11-20 H (0-2) /HPF Urine WBC 11-20 H (0-5) /HPF Ur Squamous Epith Cells 6-10 (0-2) /HPF Urine Bacteria 1+ (None Seen) Hyaline Casts 0-2 (0-2) /LPF Urine Opiates Screen Not Detected (Not Detect) Ur Buprenorphine Scrn Not Detected (Not Detect) ng/mL Ur Oxycodone Screen Not Detected (Not Detect) ng/mL Urine Methadone Screen Not Detected (Not Detect) ng/mL Urine Fentanyl Screen Not Detected (Not Detect) Ur Barbiturates Screen Not Detected (Not Detect) Ur Phencyclidine Scrn Not Detected (Not Detect) Ur Amphetamines Screen Not Detected (Not Detect) U Benzodiazepines Scrn Not Detected (Not Detect) Urine Cocaine Screen Not Detected (Not Detect) U Marijuana (THC) Screen POSITIVE H (Not Detect) Independent Interpretation I performed an independent interpretation of an: CT Scan Radiology Impression Discussion of test interpretation with radiology: I have reviewed the radiologist's reading. Radiologist Impression: liber. No wall thickening or inflammation noted. No rectal abnormality. ABDOMINAL WALL: No significant hernia is appreciated. LYMPH NODES: No abnormal lymphadenopathy present. VASCULAR: Unremarkable. PELVIC VISCERA: The uterus and adnexa are unremarkable. OSSEOUS STRUCTURES: There is no suspicious lytic or blastic bone lesion. No acute bony abnormalities. CT/CT abdomen pelvis wo IV con IMPRESSION: 1. No acute findings in the abdomen or pelvis. No urological calculus or obstruction. 2. Cholelithiasis. 3. Mild diffuse fatty infiltration of the liver. 4. Small to moderate-sized type I hiatus hernia. Electronically signed by: Luis Manuel Null MD 09/18/2024 08:35 AM EDT RP Dictated By: Luis Manuel Null MD External Record Review External record reviewed: Inpatient record Critical Care Time Critical Care Time Critical Care Time: Yes Total Critical Care Time: 60 Attestation: Multiple round of IV antiemetic including droperidol, IV fentanyl, potassium replacement Discharge Plan Discharge Clinical Impression: High anion gap metabolic acidosis Vomiting Qualifiers: Vomiting type: unspecified Nausea presence: with nausea Qualified Code(s): R11.2 - Nausea with vomiting, unspecified Abdominal pain Qualifiers: Abdominal location: generalized Qualified Code(s): R10.84 - Generalized abdominal pain Patient Disposition: Admitted As Inpatient
--- NOTE | 2024-09-18 07:11 | MHC.EDTECH ---
pt visitor grab ice chips. Pt was suggested to refrain from drinking or ice chips due to vomiting. Previous tech stated pt was npo but boyfriend gave water than pt started vomiting once again. I introduced myself to visitor and mom and suggested to refrain from drinking/ice chips till she medicated and po trial starts.
[2024-09-18] MEDS: Lactated Ringers 1,000 ML 999 ML IV ×2 (07:18→08:45)
[2024-09-18] MEDS: diazePAM 10 MG/2 ML CARTRIDGE 5 MG IVPUSH (07:19)
--- NOTE | 2024-09-18 07:24 | PC.NURSE ---
Patient is a 29 yo female with a pmh: Kidney stones, esophagitis, Gastritis, Hiatal hernia, Antral nodule, Duodenitis who presented with generalized abdominal pain with assoc N/V which began last night. Patient alert and oriented, extremely anxious and histrionic. Lungs clear bilat. Respirations even and non-labored. Abdomen obese, soft, non-tender with positive bowel sounds. Denies any abdominal pain at this time, but continues with the N/V. Positive pedal pulses with no edema.
[2024-09-18] MEDS: Potassium Chloride Packet 20 MEQ PACKET PO (09:30)
--- NOTE | 2024-09-18 09:57 | P.HPHOSP_ITS ---
History of Present Illness Date of Service: 09/18/24 Chief Complaint: n/v/abd pain Patient is a 29-year-old female with a past medical history of obesity, renal stones, mood disorder, esophagitis who presents to the emergency room with complaints of intractable nausea, vomiting and abdominal pain which has progressively worsened over the last 1 week. Initially, the patient reported intermittent nausea with loss of appetite which slowly progressed to persistent vomiting and mid abdominal/epigastric pain. She reports multiple episodes of, initially nonbloody vomitus followed by vomitus with blood-tinged. She denies any coffee-grounds or mark hematemesis. She denies any bright red blood per rectum. The patient also complained of some left flank pain which now seems resolved. She endorses some urinary frequency/urgency. She denies any fevers or chills. She denies any sick contacts. Pt reports smoking marijuana about last 1.5 months (stopped about 1 week ago) Due to the ongoing symptoms and appearance of blood in her vomit, the patient presented to the emergency room. In the ED, the patient underwent a CT abdomen and pelvis which was negative for kidney stones. CMP - bicarb 17, Gap 25, protein 9, K 3; UA+ esteraste, nitirte neg, 1+ bacteria; UDS+ for THC She received treatment with 2L of IVF, multiple rounds of IV antiemetics and multiple rounds of IV analgesics. She continues to be symptomatic, hence will be admitted for further care. Review of Systems 2 Review of Systems: Negative except HPI/interval history. [facility] Medical History Kidney stone Social History Household Members: Family Housing: Apartment Are you a primary home care physical therapist to a significant other at home: No Do you presently have visiting nurse or other home services: No Alcohol intake: never Patient Tobacco Use Status: Current everyday Tobacco user Tobacco use type: Cigarette Cigarette Packs Per Day: 5 Cigarettes Per Day: 100.0 Smoked in Last 30 Days: No Use of substances other than those prescribed or required for medical reasons: No Substance Use Type: Marijuana Advance Directives: Yes Advance Directives on File: Yes Advance Directives Date on File: 11/28/23 Patient : No service: No Meds Allergies Allergy/AdvReac Type Severity Reaction Status Date / Time No Known Allergies Allergy Verified 09/18/24 01:48 Active Medications: Current Medications Acetaminophen (Acetaminophen 325 Mg Tablet) 650 mg PO Q6H PRN PRN Reason: Pain, Mild 1-3,fever,headache Calcium Carbonate (Calcium Carbonate 750 Mg Tab.Chew) 750 mg PO Q4H PRN PRN Reason: Heartburn Magnesium Hydroxide (Milk Of Magnesia 30 Ml Oral.Susp) 30 ml PO DAILY PRN PRN Reason: Constipation Melatonin (Melatonin 3 Mg Tablet) 6 mg PO BEDTIME PRN PRN Reason: Insomnia Morphine Sulfate (Morphine Sulfate 4 Mg/Ml Cartridge) 4 mg IVPUSH Q4H PRN; Protocol PRN Reason: Pain, Severe (Pain Scale 7-10) Pantoprazole Sodium (Pantoprazole Sodium 40 Mg/10 Ml Vial) 40 mg IVPUSH ONCE ONE Stop: 09/18/24 09:53 Sodium Chloride (0.9 % Sodium Chloride Flush 3 Ml Syringe) 3 ml IVFLUSH QSHIFT [facility] Home Medications ?Medication ?Instructions ?Recorded ?Confirmed ?Last Taken ?Type No Known Home Meds 09/18/24 09/18/24 Un known History Physical Exam 2 Vital Signs and Narrative: Vital Signs: Last Vital Signs Temp 98.4 F 09/18/24 06:50 Pulse 108 H 09/18/24 06:50 Resp 24 H 09/18/24 06:50 BP 158/91 H 09/18/24 06:50 Pulse Ox 98 09/18/24 06:50 O2 Del Method Room Air 09/18/24 06:50 BMI result Body Mass Index 54.1 Const: Other: Constitutional - Awake and Alert, No apparent distress Eyes - PERRLA, EOMI Cardiovascular - S1S2, RRR, No edema Respiratory - mild epigastric TTP without rebound Gastrointestinal - NT / ND; +BS; No rebound or guarding - No CVA tenderness Extremities - no calf tenderness bilaterally, no swelling Musculoskeletal - Normal inspection, normal ROM Skin - Warm/Dry Neurological - Alert & oriented x3, No focal deficit Psychological - Appropriate affect Results Labs 09/18/24 13:50 09/18/24 13:50 Labs: Laboratory Results - last 24 hr 09/18/24 09/18/24 02:02 05:38 MCV 83.6 MCH 27.9 MCHC 33.4 RDW 13.1 Plt Count 479 H D MPV 10.0 Immature Gran % (Auto) 0.5 H Neut % (Auto) 82.9 H Lymph % (Auto) 12.4 L [place] % (Auto) 3.5 Eos % (Auto) 0.4 Baso % (Auto) 0.3 Lymph # (Auto) 2.8 [place] # (Auto) 0.8 Eos # (Auto) 0.1 Baso # (Auto) 0.1 Abs Immat Gran (auto) 0.12 H Absolute Neuts (auto) 18.5 H Absolute Nucleated RBC 0.000 Nucleated RBC % (auto) 0.0 Anion Gap 25 H Estim Creat Clear Calc 134.6 Estimated GFR > 60 Random Glucose 113 Calcium 9.9 Total Bilirubin 0.5 AST 28 ALT 12 Alkaline Phosphatase 99 Total Protein 9.0 H Albumin 4.8 Lipase 8 Beta HCG, Quant < 2 Urine Color Yellow Urine Appearance Clear Urine pH 5.5 Ur Specific [place] 1.025 Urine Protein 30 (1+) H Urine Glucose (UA) Negative Urine Ketones >=160 Urine Blood Moderate (2+) H Urine Nitrite Negative Ur Leukocyte Esterase Small (1+) H Urine RBC 11-20 H Urine WBC 11-20 H Ur Squamous Epith Cells 6-10 Urine Bacteria 1+ Hyaline Casts 0-2 Urine Opiates Screen Not Detected Ur Buprenorphine Scrn Not Detected Ur Oxycodone Screen Not Detected Urine Methadone Screen Not Detected Urine Fentanyl Screen Not Detected Ur Barbiturates Screen Not Detected Ur Phencyclidine Scrn Not Detected Ur Amphetamines Screen Not Detected U Benzodiazepines Scrn Not Detected Urine Cocaine Screen Not Detected U Marijuana (THC) Screen POSITIVE H Imaging Radiologist's Impressions: Impressions Abdomen/Pelvis CT 09/18/24 07:03 IMPRESSION: 1. No acute findings in the abdomen or pelvis. No urological calculus or obstruction. 2. Cholelithiasis. 3. Mild diffuse fatty infiltration of the liver. 4. Small to moderate-sized type I hiatus hernia. Electronically signed by: Luis Manuel Null MD 09/18/2024 08:35 AM EDT Chest X-Ray 09/18/24 08:22 IMPRESSION: No acute airspace disease. Electronically signed by: Sage Pritchett MD 09/18/2024 09:37 AM EDT Assessment and Plan (1) Vomiting: Qualifiers: Nausea presence: with nausea Vomiting type: unspecified Qualified Code(s): R11.2 - Nausea with vomiting, unspecified Status: Acute Plan 29 yo F with PMH obesity, renal stones, mood disorder, esophagitis who presents to the emergency room with complaints of intractable nausea, vomiting and abdominal pain. 1. Intractable n/v/abdominal pain 1a. ? GI bleed possibley secondary to cannnibis hyperemesis syndrome NPO IVF, IV PPI, GI consult - d/w GI --> IV PPI, can try clears, scheduled zofran correct electrolytes, monitor BMP, monitor cbc 2. Possible UTI UA equivocal; pt endorsing vague symptoms empiric rocephin -- d/c if UA neg pt does not have severe sepsis 3. Mood med rec pending, continue baseline meds appropriate 4. Obesity, Class III weight loss/diet/excerise Full Code DVT pptx - mechanical due to reported bleeding Med rec pending, continue baseline meds as appropriate. Quality Stroke Does the patient have a stroke diagnosis?: No VTE Prior VTE?: No VTE Risk Level:: Medical - moderate - high VTE Device Contraindication: N/A - Device Ordered VTE Drug Contraindication: N/A - Med Ordered
[2024-09-18] MEDS: KCl 20 mEq in 5 % Dex/Lact Rin 20 MEQ/1,000 ML IV.SOLN 100 MEQ IVCONT ×2 (10:50→20:40)
--- NOTE | 2024-09-18 11:20 | PHA.MEDREC ---
Addendum entered by Chris Duque RPh 09/18/24 11:27: Reviewed by [facility] Original Note: Pharmacy Consult ? Medication Reconciliation Pharmacy has completed the medication reconciliation. Patients family at bedside states patient is not taking any medications.
--- NOTE | 2024-09-18 11:57 | P.CNGI_ITS ---
History of Present Illness Data of Consult Service Date: 09/18/24 Primary Care Provider: Unknown Physician HPI Reason for consult: n/v 29-year-old female with hx of obesity, renal stones, mood disorder, esophagitis who I am seeing for assessment for nausea and vomiting. She noted sx for 1 week, with epigastric pain, without radiation, without relieiving or exacerbating factors and with blood clots and bilious emesis . She denies any coffee-grounds or mark hematemesis. She denies any bright red blood per rectum. No recent THC use. No sick contacts or poorly cooked food but has noted diarrhea. She had EGD 10/2023 with erosive esophagitis, hiatal hernia, gastritis, ?panc rest, duodenitis. She has not been taking any PPI since her last admission, and current sx are very similar to that admission. She endorses some urinary frequency/urgency. She denies any fevers or chills. She denies any sick contacts Labs with stable HGB at 13 g/dl, neg lipase, neg preg test, nml LFT--u tox pos for THC CT imaging with gallstones Review of Systems 2 Review of Systems: Constitutional : No Weight loss, No Fever, No Chills ENT/Mouth : No sore throat, No Rhinorrhea Eyes: No Swelling, No Redness Cardiovascular : No Chest Pain, No SOB, No Edema Respiratory : No Cough, No Sputum, No Wheezing Gastrointestinal : see HPI Genitourinary : NO Dysuria, No Urinary Frequency, No Hematuria, No Urgency Musculoskeletal : no joint pain, No Myalgias, No Joint Swelling Skin : No Skin Lesions, No rash Neuro : No Weakness, No Numbness, No Dizziness, No Headache Psych : No Anxiety/Panic, No Depression Heme/Lymph: No Bruising, No Lymphadenopathy Endocrine : No Polyuria, No Polydipsia All other systems reviewed and are negative. [facility] Past Medical History Medical History Kidney stone Family History Pertinent family history: no FH of ulcers or liver problems Social History Social History Household Members: Family Housing: Apartment Are you a primary career education teacher to a significant other at home: No Do you presently have visiting nurse or other home services: No Alcohol intake: never Patient Tobacco Use Status: Current everyday Tobacco user Tobacco use type: Cigarette Cigarette Packs Per Day: 5 Cigarettes Per Day: 100.0 Smoked in Last 30 Days: No Use of substances other than those prescribed or required for medical reasons: No Substance Use Type: Marijuana Advance Directives: Yes Advance Directives on File: Yes Advance Directives Date on File: 11/28/23 Patient : No service: No Meds Allergies Allergy/AdvReac Type Severity Reaction Status Date / Time No Known Allergies Allergy Verified 09/18/24 01:48 Active Medications: Current Medications Acetaminophen (Acetaminophen 325 Mg Tablet) 650 mg PO Q6H PRN PRN Reason: Pain, Mild 1-3,fever,headache Calcium Carbonate (Calcium Carbonate 750 Mg Tab.Chew) 750 mg PO Q4H PRN PRN Reason: Heartburn Potassium Cl/Dextrose/Lact Ringer's (Kcl 20 Meq In 5 % Dex/Lact Rin) 20 meq in 1,000 mls @ 100 mls/hr IVCONT .Q10H [facility] Last Admin: 09/18/24 10:50 Dose: 100 mls/hr Magnesium Hydroxide (Milk Of Magnesia 30 Ml Oral.Susp) 30 ml PO DAILY PRN PRN Reason: Constipation Melatonin (Melatonin 3 Mg Tablet) 6 mg PO BEDTIME PRN PRN Reason: Insomnia Morphine Sulfate (Morphine Sulfate 4 Mg/Ml Cartridge) 4 mg IVPUSH Q4H PRN; Protocol PRN Reason: Pain, Severe (Pain Scale 7-10) Pantoprazole Sodium (Pantoprazole Sodium 40 Mg/10 Ml Vial) 40 mg IVPUSH BID@0630,1630 [facility] Sodium Chloride (0.9 % Sodium Chloride Flush 3 Ml Syringe) 3 ml IVFLUSH QSHIFT [facility] Home Medications ?Medication ?Instructions ?Recorded ?Confirmed ?Last Taken ?Type No Known Home Meds 09/18/24 09/18/24 Un known History Physical Exam 2 Exam: Exam: EXAM: GENERAL: The patient is well developed and nontoxic. VITAL SIGNS:see workflow HEENT: Nonicteric sclerae, PERRLA, EOMI. Oropharynx clear. Moist mucous membranes. Conjunctivae appear well perfused. No thyroid mass. CHEST: Chest wall is nontender. HEART: Regular rate and rhythm without murmurs. LUNGS: Clear to auscultation bilaterally. ABDOMEN: Soft, positive bowel sounds, mildly tender epigastrium, no organomegaly.no flank tenderness SKIN: No rash, no excessive bruising, petechiae, or purpura. NEUROLOGIC: Cranial nerves II-XII intact without motor/sensory deficit. Psych: normal affect Vital Signs: Vital Signs: Last Vital Signs Temp 98.0 F 09/18/24 10:00 Pulse 81 09/18/24 10:00 Resp 18 09/18/24 10:00 BP 151/80 H 09/18/24 10:00 Pulse Ox 96 09/18/24 10:00 O2 Del Method Room Air 09/18/24 06:50 BMI result Body Mass Index 54.1 Results Labs 09/18/24 13:50 09/18/24 13:50 Labs: Short CBC 09/18/24 Range/Units 02:02 WBC 22.3 H (4.8-10.8) X10*3/uL Hgb 13.8 (12.0-16.0) g/dl Hct 41.3 (37.0-47.0) % Plt Count 479 H D (160-400) X10*3/uL BMP 09/18/24 02:02 Sodium 140 Potassium 3.0 L Chloride 101 Carbon Dioxide 17 L BUN 9 Creatinine 0.97 Calcium 9.9 Liver Function 09/18/24 Range/Units 02:02 Total Bilirubin 0.5 (0.0-1.0) mg/dL AST 28 (5-31) U/L ALT 12 (0-31) U/L Alkaline Phosphatase 99 (39-117) U/L Albumin 4.8 (3.5-5.0) g/dL Urine 09/18/24 Range/Units 05:38 Urine Color Yellow Urine Appearance Clear Urine pH 5.5 (5.0-9.0) Ur Specific [place] 1.025 (1.005-1.025) Urine Protein 30 (1+) H (Neg-Trace) mg/dL Urine Glucose (UA) Negative (Negative) mg/dL Imaging CT scan - abdomen: Attestation: I personally reviewed and interpreted this imaging study as follows: (gallstone) Assessment and Plan (1) Vomiting: Qualifiers: Nausea presence: with nausea Vomiting type: unspecified Qualified Code(s): R11.2 - Nausea with vomiting, unspecified Status: Acute Plan 1/ Intractable nausea, vomiting, prior hx of erosive esophagitis, may have recurrence ddx: CVS, cannabinoid hyperemesis, symptomatic gallstone. HGB has been stable which is reassuring. PLAN: /1- hold on EGD for the moment 2/ high dose PPI - pantoprazole 40 mg BID IV, 3/ scheduled zofran e.g q 8 hrs 4/ if diarrhea then check gi stool panel and c diff, maybe consider celiac test as well Procedures Date of Service Date of Service: 09/18/24
[2024-09-18 14:01] LABS: Hematocrit 40.3 % (37.0-47.0); Hemoglobin 13.2 g/dl (12.0-16.0); Mean Corpuscular HGB Conc 32.8 g/dl (31.0-35.0); Mean Corpuscular Hemoglobin 27.7 pg (27.0-33.0); Mean Corpuscular Volume 84.5 fL (80.0-98.0); NRBC Abs Auto 0.000 X10*3/uL (0.0-0.012); NRBC Pct Auto 0.0 /100WBC (0.0-0.2); Platelet Count 477 X10*3/uL (160-400); Red Blood Count 4.77 X10*6/uL (4.20-5.50); White Blood Count 19.3 X10*3/uL (4.8-10.8)
[2024-09-18 14:08] LABS: Anion Gap 20 (12-20); Blood Urea Nitrogen 7 mg/dL (9-16); Calcium 9.7 mg/dL (8.4-10.2); Carbon Dioxide 18 mmol/L (22-29); Chloride 104 mmol/L (96-108); Creatinine Clr Calc Pharmacy 181.3; Estimated Glomerular Filt Rate > 60; Potassium 3.2 mmol/L (3.3-5.1); Sodium 139 mmol/L (135-145)
--- NOTE | 2024-09-19 | ECG_ITS ---
Test Reason : check hypokalmeia Blood Pressure : */* mmHG Vent. Rate : 94 BPM Atrial Rate : 94 BPM P-R Int : 154 ms QRS Dur : 90 ms QT Int : 364 ms P-R-T Axes : 11 68 20 degrees QTcB Int : 455 ms Sinus rhythm with occasional Premature ventricular complexes Otherwise normal ECG When compared with ECG of 21-Nov-2023 20:05, Premature ventricular complexes are now Present Referred By: Max Queen Electronically Signed By: Cj Betancourt
[2024-09-19 03:10] VITALS: BP 169/97; PULSE 82; RESP 19; TEMP 36.6; O2SAT 99
[2024-09-19 06:24] LABS: Hematocrit 35.8 % (37.0-47.0); Hemoglobin 11.8 g/dl (12.0-16.0); Mean Corpuscular HGB Conc 33.0 g/dl (31.0-35.0); Mean Corpuscular Hemoglobin 27.6 pg (27.0-33.0); Mean Corpuscular Volume 83.6 fL (80.0-98.0); NRBC Abs Auto 0.000 X10*3/uL (0.0-0.012); NRBC Pct Auto 0.0 /100WBC (0.0-0.2); Platelet Count 426 X10*3/uL (160-400); Red Blood Count 4.28 X10*6/uL (4.20-5.50); White Blood Count 18.7 X10*3/uL (4.8-10.8)
[2024-09-19 06:43] LABS: Anion Gap 13 (12-20); Blood Urea Nitrogen 5 mg/dL (9-16); Calcium 9.1 mg/dL (8.4-10.2); Carbon Dioxide 22 mmol/L (22-29); Chloride 106 mmol/L (96-108); Creatinine Clr Calc Pharmacy 207.2; Estimated Glomerular Filt Rate > 60; Potassium 3.0 mmol/L (3.3-5.1); Sodium 138 mmol/L (135-145)
[2024-09-19 07:52] VITALS: BP 143/92; PULSE 74; RESP 12; TEMP 36.1; O2SAT 95
[2024-09-19] MEDS: Potassium Chloride/H20 10 MEQ/100 ML PIGGYBACK 100 MEQ IV ×7 (07:58→23:43)
[2024-09-19] MEDS: 0.9 % Sodium Chloride Flush 3 ML SYRINGE IVFLUSH ×3 (07:59→23:44)
[2024-09-19 12:00] VITALS: BP 178/90; PULSE 88; TEMP 36.8; O2SAT 92
--- NOTE | 2024-09-19 13:35 | MHC.CM.PN ---
PT LIVES WITH S/O IS INDEPENDEBNT HAS A RIDE HOME DC PLAN HOME NO SERVICES
--- NOTE | 2024-09-19 14:22 | PC.NURSE ---
Upon assessment, patient crying, restless in bed, reporting Zofran doesn't work for her and compazine has worked in the past. Paged Provider Kelsey Queen via [employer], Compazine ordered. Attempted to run 10mEq potassium, patient yelled out into hallway reporting IV was burning, upon assessment IV continues to get positive blood return and WNL. Rate slowed down to 50ml/hr and y sited with normal saline, patient continued to yell out and cry that IV was burning. Potassium paused. Provider Bret notified via [employer]. Patient denied IV burning with other IV medications. Provider later came and spoke to patient, patient reported that provider said IV potassium is needed and the nurse will run at a slow rate. IV potassium resumed at 50ml/hr, patient no longer complained of IV burning and rate was able to increase to 100ml/hr for subsequent doses with no complaints of IV burning. Patient showering in between potassium doses, patient reports warm showers help with the nausea. Patient appears to be intermittently sleeping/resting in bed when no nursing interventions are needed. When nursing interventions occur, patient becomes more anxious and restless in the bed requiring frequent reassurance.
--- NOTE | 2024-09-19 15:29 | P.PNIM_ITS ---
Subjective Subjective Date of Service: 09/19/24 Interval History: Intractable nausea vomiting Review of Systems Says nausea vomiting seems similar abdominal pain somewhat improving Physical Exam 2 Exam: Exam: Appearance: Alert.? Oriented X3.? cvs: [id number], [id number]. res: clear to auscultation ,no rhonchii or wheezing abd: no rebound or guarding ,mild soarness , bs present. ext pulses present , no cyanosis. neuro: axo3 , nonfocal. Vital Signs: Vital Signs: Last Vital Signs Temp 98.3 F 09/19/24 12:00 Pulse 88 09/19/24 12:00 Resp 12 09/19/24 07:52 BP 178/90 H 09/19/24 12:00 Pulse Ox 92 09/19/24 12:00 O2 Del Method Room Air 09/19/24 12:00 BMI result Body Mass Index 54.1 Objective Data Active Medications Acetaminophen (Acetaminophen 325 Mg Tablet) 650 mg PO Q6H PRN PRN Reason: Pain, Mild 1-3,fever,headache Calcium Carbonate (Calcium Carbonate 750 Mg Tab.Chew) 750 mg PO Q4H PRN PRN Reason: Heartburn Last Admin: 09/18/24 15:57 Dose: 750 mg Documented By: ALIYA Ceftriaxone Sodium (Ceftriaxone Sodium 1 Gm Vial) 1 gm IVPUSH Q24H [facility] Last Admin: 09/19/24 07:57 Dose: 1 gm Documented By: JAY JAY Magnesium Hydroxide (Milk Of Magnesia 30 Ml Oral.Susp) 30 ml PO DAILY PRN PRN Reason: Constipation Melatonin (Melatonin 3 Mg Tablet) 6 mg PO BEDTIME PRN PRN Reason: Insomnia Morphine Sulfate (Morphine Sulfate 4 Mg/Ml Cartridge) 4 mg IVPUSH Q4H PRN; Protocol PRN Reason: Pain, Severe (Pain Scale 7-10) Ondansetron HCl (Ondansetron Hcl 4 Mg/2 Ml Vial) 4 mg IVPUSH Q8H [facility] Last Admin: 09/19/24 11:01 Dose: Not Given Documented By: JAY JAY Non-Admin Reason: Patient Refused Pantoprazole Sodium (Pantoprazole Sodium 40 Mg/10 Ml Vial) 40 mg IVPUSH BID@0630,1630 [facility] Last Admin: 09/19/24 05:40 Dose: 40 mg Documented By: ISMAEL Prochlorperazine Edisylate (Prochlorperazine Edisylate 10 Mg/2 Ml Vial) 5 mg IV Q4H PRN PRN Reason: Nausea and Vomiting Last Admin: 09/19/24 12:21 Dose: 5 mg Documented By: JAY JAY Sodium Chloride (0.9 % Sodium Chloride Flush 3 Ml Syringe) 3 ml IVFLUSH QSHIFT [facility] Last Admin: 09/19/24 07:59 Dose: 3 ml Documented By: JAY JAY Labs 09/19/24 05:35 09/19/24 05:35 Labs: Laboratory Results - last 24 hr 09/19/24 05:35 MCV 83.6 MCH 27.6 MCHC 33.0 RDW 13.2 Plt Count 426 H MPV 10.6 Absolute Nucleated RBC 0.000 Nucleated RBC % (auto) 0.0 Anion Gap 13 Estim Creat Clear Calc 207.2 Estimated GFR > 60 Random Glucose 121 H Calcium 9.1 D Microbiology Microbiology Results: Microbiology 09/18/24 Unknown Urine Culture - Final Urine clean catch - Clean Catch Midstream Assessment and Plan (1) Vomiting: Status: Acute (2) Abdominal pain: Status: Acute Plan 29 yo F with PMH obesity, renal stones, mood disorder, esophagitis who presents to the emergency room with complaints of intractable nausea, vomiting and abdominal pain. Intractable n/v/abdominal pain ? GI bleed possibley secondary to cannnibis hyperemesis syndrome plan: NPO IVF, IV PPI, GI consult - d/w GI --> IV PPI, can try clears, scheduled zofran correct electrolytes, monitor BMP, monitor cbc Possible UTI UA equivocal; pt endorsing vague symptoms empiric rocephin -- d/c if UA neg pt does not have severe sepsis Mood: med rec pending, continue baseline meds appropriate 4. Obesity, Class III weight loss/diet/excerise Full Code DVT pptx - mechanical due to reported bleeding ongoing need: Intractable n/v/abdominal pain,gi bleedin: moniter h/h , renal function /electrolytes , not taking po yet Quality Stroke Does the patient have a stroke diagnosis?: No VTE Prior VTE?: No VTE Risk Level:: Medical - moderate - high VTE Device Contraindication: N/A - Device Ordered VTE Drug Contraindication: N/A - Med Ordered
[2024-09-19 16:00] VITALS: BP 140/94; PULSE 76; RESP 14; TEMP 37.1; O2SAT 97
--- NOTE | 2024-09-19 18:25 | PC.NURSE ---
Phlebotomy messaged via [employer] to check on patient's labs to be drawn, phlebotomy responded that patient was in shower at 2 attempts to retrieve labs, phlebotomy informed that patient is currently out of shower. Patient has been taking multiple showers throughout shift, patient reports that this helps her nausea. MD Queen notified of reason for delay in lab draw.
[2024-09-19 19:28] LABS: Magnesium 1.6 mg/dL (1.6-2.6); Potassium 2.9 mmol/L (3.3-5.1)
[2024-09-19 19:55] VITALS: BP 141/91; PULSE 80; RESP 20; TEMP 36.1; O2SAT 98
[2024-09-19] MEDS: Potassium Chloride ER 20 MEQ TAB.ER.PRT 40 MEQ PO (21:54)
--- NOTE | 2024-09-19 22:05 | PC.NURSE ---
Pt repeat K+ 2.9 ordered 10meq IV K+ x 4 bags also ordered po K+ 40meq liquid.Pt refused PO K+ liquid notifed ordered 40meq po tablets instead which pt took.PT requesting something for anxiety ordered atarax 50mg po x 1 dose given at 2029.
[2024-09-19 23:09] VITALS: BP 134/81; PULSE 93; RESP 18; TEMP 36.4; O2SAT 96
[2024-09-20] MEDS: Potassium Chloride/H20 10 MEQ/100 ML PIGGYBACK 100 MEQ IV (01:44)
[2024-09-20 04:00] VITALS: BP 139/80; PULSE 82; RESP 18; TEMP 36.8; O2SAT 97
[2024-09-20 08:00] VITALS: BP 161/103; PULSE 86; RESP 18; TEMP 36.4; O2SAT 97
[2024-09-20] MEDS: 0.9 % Sodium Chloride Flush 3 ML SYRINGE IVFLUSH ×3 (08:38→20:05)
[2024-09-20 09:21] LABS: Anion Gap 10 (12-20); Blood Urea Nitrogen 5 mg/dL (9-16); Calcium 9.3 mg/dL (8.4-10.2); Carbon Dioxide 24 mmol/L (22-29); Chloride 107 mmol/L (96-108); Creatinine Clr Calc Pharmacy 191.9; Estimated Glomerular Filt Rate > 60; Magnesium 1.7 mg/dL (1.6-2.6); Potassium 2.9 mmol/L (3.3-5.1); Sodium 138 mmol/L (135-145)
[2024-09-20] MEDS: Potassium Chloride ER 20 MEQ TAB.ER.PRT PO (09:26)
[2024-09-20 12:00] VITALS: BP 114/61; PULSE 95; RESP 17; TEMP 36.6; O2SAT 95
[2024-09-20] MEDS: Potassium Chloride ER 20 MEQ TAB.ER.PRT 40 MEQ PO ×2 (13:16→20:05)
--- NOTE | 2024-09-20 13:56 | HO.PM.IMPN ---
Subjective Subjective Date of Service: 09/20/24 Interval History: Intractable nausea vomiting Review of Systems Says nausea vomiting seems similar abdominal pain somewhat improving Trial of diet, hypokalemia Review of Systems: Yes all other systems are reviewed and are negative Physical Exam Exam: Exam: Appearance: Alert.? Oriented X3.? cvs: [id number], [id number]. res: clear to auscultation ,no rhonchii or wheezing abd: no rebound or guarding ,mild soarness , bs present. ext pulses present , no cyanosis. neuro: axo3 , nonfocal. Vital Signs: Vital Signs: Last Vital Signs Temp 97.8 F 09/20/24 12:00 Pulse 95 09/20/24 12:00 Resp 17 09/20/24 12:00 BP 114/61 09/20/24 12:00 Pulse Ox 95 09/20/24 12:00 O2 Del Method Room Air 09/20/24 12:00 BMI result Body Mass Index 54.1 Objective Data Active Medications Acetaminophen (Acetaminophen 325 Mg Tablet) 650 mg PO Q6H PRN PRN Reason: Pain, Mild 1-3,fever,headache Calcium Carbonate (Calcium Carbonate 750 Mg Tab.Chew) 750 mg PO Q4H PRN PRN Reason: Heartburn Last Admin: 09/18/24 15:57 Dose: 750 mg Documented By: ALIYA Ceftriaxone Sodium (Ceftriaxone Sodium 1 Gm Vial) 1 gm IVPUSH Q24H [facility] Last Admin: 09/20/24 08:31 Dose: 1 gm Documented By: JIMMIE Hydroxyzine HCl (Hydroxyzine Hcl 25 Mg Tablet) 25 mg PO BID PRN PRN Reason: anxiety/restlessness Last Admin: 09/20/24 08:30 Dose: 25 mg Documented By: JIMMIE Magnesium Hydroxide (Milk Of Magnesia 30 Ml Oral.Susp) 30 ml PO DAILY PRN PRN Reason: Constipation Melatonin (Melatonin 3 Mg Tablet) 6 mg PO BEDTIME PRN PRN Reason: Insomnia Morphine Sulfate (Morphine Sulfate 4 Mg/Ml Cartridge) 4 mg IVPUSH Q4H PRN; Protocol PRN Reason: Pain, Severe (Pain Scale 7-10) Ondansetron HCl (Ondansetron Hcl 4 Mg/2 Ml Vial) 4 mg IVPUSH Q8H [facility] Last Admin: 09/20/24 08:29 Dose: 4 mg Documented By: JIMMIE Pantoprazole Sodium (Pantoprazole Sodium 40 Mg/10 Ml Vial) 40 mg IVPUSH BID@0630,1630 [facility] Last Admin: 09/20/24 04:44 Dose: 40 mg Documented By: LUAN Prochlorperazine Edisylate (Prochlorperazine Edisylate 10 Mg/2 Ml Vial) 5 mg IV Q4H PRN PRN Reason: Nausea and Vomiting Last Admin: 09/20/24 13:17 Dose: 5 mg Documented By: JIMMIE Sodium Chloride (0.9 % Sodium Chloride Flush 3 Ml Syringe) 3 ml IVFLUSH QSHIFT [facility] Last Admin: 09/20/24 08:38 Dose: 3 ml Documented By: JIMMIE Labs 09/19/24 05:35 09/20/24 08:40 Labs: Laboratory Results - last 24 hr 09/19/24 09/20/24 18:43 08:40 Anion Gap 10 L Estim Creat Clear Calc 191.9 Estimated GFR > 60 Random Glucose 146 H Calcium 9.3 Magnesium 1.6 1.7 Microbiology Microbiology Results: Microbiology 09/18/24 Unknown Urine Culture - Final Urine clean catch - Clean Catch Midstream Assessment and Plan (1) Vomiting: Status: Acute (2) Abdominal pain: Status: Acute Plan 29 yo F with PMH obesity, renal stones, mood disorder, esophagitis who presents to the emergency room with complaints of intractable nausea, vomiting and abdominal pain. Intractable n/v/abdominal pain ? GI bleed possibley secondary to cannnibis hyperemesis syndrome plan: NPO IVF, IV PPI, GI consult - d/w GI --> IV PPI, can try clears, scheduled zofran correct electrolytes, monitor BMP, monitor cbc. Acute hypokalemia: Added p.o. potassium Patient reluctant to take IV Monitor BMP closely. Possible UTI UA equivocal; pt endorsing vague symptoms empiric rocephin -- d/c if UA neg pt does not have severe sepsis Mood: med rec pending, continue baseline meds appropriate 4. Obesity, Class III weight loss/diet/excerise Full Code DVT pptx - mechanical due to reported bleeding ongoing need: Intractable n/v/abdominal pain,gi bleedin: moniter h/h , renal function /electrolytes , not taking po yet Quality Stroke Does the patient have a stroke diagnosis?: No VTE Prior VTE?: No VTE Risk Level:: Medical - moderate - high VTE Device Contraindication: N/A - Device Ordered VTE Drug Contraindication: N/A - Med Ordered
[2024-09-20 14:35] LABS: Anion Gap 12 (12-20); Blood Urea Nitrogen 5 mg/dL (9-16); Calcium 8.6 mg/dL (8.4-10.2); Carbon Dioxide 25 mmol/L (22-29); Chloride 106 mmol/L (96-108); Creatinine Clr Calc Pharmacy 200.9; Estimated Glomerular Filt Rate > 60; Potassium 3.0 mmol/L (3.3-5.1); Sodium 140 mmol/L (135-145)
[2024-09-20 15:18] VITALS: BP 156/97; PULSE 91; RESP 17; TEMP 36.8; O2SAT 97
[2024-09-20 20:00] VITALS: BP 120/73; PULSE 83; RESP 18; TEMP 36.7; O2SAT 95
[2024-09-20 23:14] VITALS: BP 110/66; PULSE 80; RESP 17; TEMP 36.6; O2SAT 94
[2024-09-21 04:00] VITALS: BP 107/58; PULSE 89; RESP 18; TEMP 36.8; O2SAT 97
[2024-09-21 06:50] LABS: Anion Gap 9 (12-20); Blood Urea Nitrogen 6 mg/dL (9-16); Calcium 8.7 mg/dL (8.4-10.2); Carbon Dioxide 26 mmol/L (22-29); Chloride 108 mmol/L (96-108); Creatinine Clr Calc Pharmacy 207.2; Estimated Glomerular Filt Rate > 60; Potassium 3.3 mmol/L (3.3-5.1); Sodium 140 mmol/L (135-145)
[2024-09-21 07:35] VITALS: BP 124/60; PULSE 89; RESP 17; TEMP 36.6; O2SAT 95
[2024-09-21] MEDS: 0.9 % Sodium Chloride Flush 3 ML SYRINGE IVFLUSH ×3 (10:41→20:50)
--- NOTE | 2024-09-21 10:55 | MHC.CM.PN ---
Per MD rounds, Patient is not medically cleared to discharge today. DP Home self care, private transport.
[2024-09-21 11:32] VITALS: BP 109/62; PULSE 86; RESP 17; TEMP 36.7; O2SAT 97
--- NOTE | 2024-09-21 15:24 | HO.PM.IMPN ---
Subjective Subjective Date of Service: 09/21/24 Interval History: Intractable nausea vomiting Review of Systems Still hesitate eat, He had nauseated Review of Systems: Yes all other systems are reviewed and are negative Physical Exam Exam: Exam: Appearance: Alert.? Oriented X3. cvs: rrr, [id number] . res: clear to auscultation ,no rhonchii or wheezing abd: no rebound or guarding ,nt, bs present. ext pulses present , no cyanosis . neuro: axo3 , nonfocal. Vital Signs: Vital Signs: Last Vital Signs Temp 98.1 F 09/21/24 11:32 Pulse 86 09/21/24 11:32 Resp 17 09/21/24 11:32 BP 109/62 09/21/24 11:32 Pulse Ox 97 09/21/24 11:32 O2 Del Method Room Air 09/21/24 11:32 BMI result Body Mass Index 54.1 Objective Data Active Medications Acetaminophen (Acetaminophen 325 Mg Tablet) 650 mg PO Q6H PRN PRN Reason: Pain, Mild 1-3,fever,headache Calcium Carbonate (Calcium Carbonate 750 Mg Tab.Chew) 750 mg PO Q4H PRN PRN Reason: Heartburn Last Admin: 09/18/24 15:57 Dose: 750 mg Documented By: ALIYA Cefuroxime Axetil (Cefuroxime Axetil 250 Mg Tablet) 250 mg PO Q12H [facility] Last Admin: 09/21/24 10:39 Dose: 250 mg Documented By: JIMMIE Clonazepam (Clonazepam 1 Mg Tablet) 1 mg PO DAILY PRN PRN Reason: anxiety attack Last Admin: 09/21/24 14:23 Dose: 1 mg Documented By: JIMMIE Docusate Sodium (Docusate Sodium 100 Mg Capsule) 100 mg PO BID [facility] Last Admin: 09/21/24 10:41 Dose: Not Given Documented By: JIMMIE Non-Admin Reason: Patient Refused Hydroxyzine HCl (Hydroxyzine Hcl 25 Mg Tablet) 25 mg PO BID PRN PRN Reason: anxiety/restlessness Last Admin: 09/20/24 22:21 Dose: 25 mg Documented By: DORYS Magnesium Hydroxide (Milk Of Magnesia 30 Ml Oral.Susp) 30 ml PO DAILY PRN PRN Reason: Constipation Melatonin (Melatonin 3 Mg Tablet) 6 mg PO BEDTIME PRN PRN Reason: Insomnia Omeprazole (Omeprazole 20 Mg Capsule.) 20 mg PO DAILY@0630 [facility] Last Admin: 09/21/24 10:39 Dose: 20 mg Documented By: JIMMIE Ondansetron HCl (Ondansetron Odt 4 Mg Tab.Rapdis) 4 mg TRANSLINGU Q12H PRN PRN Reason: Nausea and Vomiting Last Admin: 09/21/24 10:39 Dose: 4 mg Documented By: JIMMIE Polyethylene Glycol (Polyethylene Glycol 3350 17 Gm Powd.Pack) 17 gm PO DAILY PRN PRN Reason: Constipation Prochlorperazine Maleate (Prochlorperazine Maleate 5 Mg Tablet) 5 mg PO QID PRN PRN Reason: Nausea and Vomiting Last Admin: 09/21/24 13:11 Dose: 5 mg Documented By: JIMMIE Sodium Chloride (0.9 % Sodium Chloride Flush 3 Ml Syringe) 3 ml IVFLUSH QSHIFT [facility] Last Admin: 09/21/24 10:41 Dose: 3 ml Documented By: JIMMIE Labs 09/19/24 05:35 09/21/24 05:53 Labs: Laboratory Results - last 24 hr 09/21/24 05:53 Hold Purple Top SEE NOTE Anion Gap 9 L Estim Creat Clear Calc 207.2 Estimated GFR > 60 Random Glucose 109 Calcium 8.7 Assessment and Plan (1) Vomiting: Status: Acute (2) Abdominal pain: Status: Acute Plan 29 yo F with PMH obesity, renal stones, mood disorder, esophagitis who presents to the emergency room with complaints of intractable nausea, vomiting and abdominal pain. Intractable n/v/abdominal pain possibley secondary to cannnibis hyperemesis syndrome plan: trail of diet Will try to switch all antiemetics and PPI p.o. and give it a try if she can tolerate. correct electrolytes, monitor BMP, monitor cbc. Acute hypokalemia: Added p.o. potassium Patient reluctant to take IV Monitor BMP closely. Possible UTI UA equivocal; pt endorsing vague symptoms empiric rocephin -- d/c if UA neg pt does not have severe sepsis Mood: med rec pending, continue baseline meds appropriate 4. Obesity, Class III weight loss/diet/excerise Full Code DVT pptx - mechanical due to reported bleeding ongoing need: Intractable n/v/abdominal pain,gi bleedin: moniter h/h , renal function /electrolytes , not taking po yet Quality Stroke Does the patient have a stroke diagnosis?: No VTE Prior VTE?: No VTE Risk Level:: Medical - moderate - high VTE Device Contraindication: N/A - Device Ordered VTE Drug Contraindication: N/A - Med Ordered
[2024-09-21 15:33] VITALS: BP 152/65; PULSE 92; RESP 17; TEMP 36.5; O2SAT 97
[2024-09-21 16:49] LABS: Hematocrit 37.5 % (37.0-47.0); Hemoglobin 12.3 g/dl (12.0-16.0)
[2024-09-21 19:25] VITALS: BP 141/88; PULSE 93; RESP 18; TEMP 36.2; O2SAT 96
[2024-09-21 23:21] LABS: UPreg QC Valid YES
[2024-09-21 23:47] VITALS: BP 127/63; PULSE 94; RESP 18; TEMP 36.8; O2SAT 95
--- NOTE | 2024-09-22 00:14 | PC.NURSE ---
2345- compazine po given little early as patient stating to feel nauseous, feels too uncomfortable to wait, she was willing to try Zofran, however, stated compazine has been providing better relief. Will continue to monitor.
[2024-09-22 04:00] VITALS: BP 107/55; PULSE 78; RESP 18; TEMP 37.2; O2SAT 98
[2024-09-22 07:42] VITALS: BP 119/64; PULSE 92; RESP 16; TEMP 36.2; O2SAT 97
[2024-09-22] MEDS: 0.9 % Sodium Chloride Flush 3 ML SYRINGE IVFLUSH (09:00)
--- NOTE | 2024-09-22 13:59 | HO.PM.IMPN ---
Subjective Subjective Date of Service: 09/22/24 Interval History: cyclic vomiting Review of Systems Review of Systems: Yes all other systems are reviewed and are negative Physical Exam Vital Signs: Vital Signs: Last Vital Signs Temp 97.1 F 09/22/24 07:42 Pulse 92 09/22/24 07:42 Resp 16 09/22/24 07:42 BP 119/64 09/22/24 07:42 Pulse Ox 97 09/22/24 07:42 O2 Del Method Room Air 09/22/24 07:42 BMI result Body Mass Index 54.1 Objective Data Active Medications Acetaminophen (Acetaminophen 325 Mg Tablet) 650 mg PO Q6H PRN PRN Reason: Pain, Mild 1-3,fever,headache Calcium Carbonate (Calcium Carbonate 750 Mg Tab.Chew) 750 mg PO Q4H PRN PRN Reason: Heartburn Last Admin: 09/18/24 15:57 Dose: 750 mg Documented By: ALIYA Cefuroxime Axetil (Cefuroxime Axetil 250 Mg Tablet) 250 mg PO Q12H [facility] Last Admin: 09/22/24 08:55 Dose: 250 mg Documented By: JAY JAY Clonazepam (Clonazepam 1 Mg Tablet) 1 mg PO DAILY PRN PRN Reason: anxiety attack Last Admin: 09/21/24 14:23 Dose: 1 mg Documented By: GRAZARY Docusate Sodium (Docusate Sodium 100 Mg Capsule) 100 mg PO BID [facility] Last Admin: 09/22/24 08:55 Dose: 100 mg Documented By: JAY JAY Hydroxyzine HCl (Hydroxyzine Hcl 25 Mg Tablet) 25 mg PO BID PRN PRN Reason: anxiety/restlessness Last Admin: 09/20/24 22:21 Dose: 25 mg Documented By: DORYS Magnesium Hydroxide (Milk Of Magnesia 30 Ml Oral.Susp) 30 ml PO DAILY PRN PRN Reason: Constipation Melatonin (Melatonin 3 Mg Tablet) 6 mg PO BEDTIME PRN PRN Reason: Insomnia Omeprazole (Omeprazole 20 Mg Capsule.Dr) 20 mg PO DAILY@0630 [facility] Last Admin: 09/22/24 06:28 Dose: 20 mg Documented By: JAKUB Ondansetron HCl (Ondansetron Odt 4 Mg Tab.Rapdis) 4 mg TRANSLINGU Q12H PRN PRN Reason: Nausea and Vomiting Last Admin: 09/21/24 10:39 Dose: 4 mg Documented By: JIMMIE Polyethylene Glycol (Polyethylene Glycol 3350 17 Gm Powd.Pack) 17 gm PO DAILY PRN PRN Reason: Constipation Prochlorperazine Maleate (Prochlorperazine Maleate 5 Mg Tablet) 5 mg PO QID PRN PRN Reason: Nausea and Vomiting Last Admin: 09/22/24 08:55 Dose: 5 mg Documented By: JAY JAY Sodium Chloride (0.9 % Sodium Chloride Flush 3 Ml Syringe) [facility] Admin: 09/22/24 09:00 Dose: 3 ml Documented By: JAY JAY Labs 09/21/24 16:10 09/21/24 05:53 Labs: Laboratory Results - last 24 hr 09/21/24 23:07 Urine Test NEGATIVE Assessment and Plan (1) Vomiting: Status: Acute (2) Abdominal pain: Status: Acute Plan 29 yo F with PMH obesity, renal stones, mood disorder, esophagitis who presents to the emergency room with complaints of intractable nausea, vomiting and abdominal pain. Intractable n/v/abdominal pain possibley secondary to cannnibis hyperemesis syndrome plan: trail of diet Will try to switch all antiemetics and PPI p.o. and give it a try if she can tolerate. correct electrolytes, monitor BMP, monitor cbc. Acute hypokalemia: Added p.o. potassium Patient reluctant to take IV Monitor BMP closely. Possible UTI UA equivocal; pt endorsing vague symptoms empiric rocephin -- d/c if UA neg pt does not have severe sepsis Mood: med rec pending, continue baseline meds appropriate 4. Obesity, Class III weight loss/diet/excerise Full Code DVT pptx - mechanical due to reported bleeding ongoing need: Intractable n/v/abdominal pain,gi bleedin: moniter h/h , renal function /electrolytes , not taking po yet Quality Stroke Does the patient have a stroke diagnosis?: No VTE Prior VTE?: No VTE Risk Level:: Medical - moderate - high VTE Device Contraindication: N/A - Device Ordered VTE Drug Contraindication: N/A - Med Ordered
[2024-09-22 15:33] VITALS: BP 120/80; PULSE 90; RESP 18; TEMP 37.2; O2SAT 99
--- NOTE | 2024-09-22 16:12 | PM.DS ---
DS: Providers Provider Date of Service: 09/22/24 Date of admission: 09/20/24 08:45 Date of discharge: 09/22/24 Primary care physician: Unknown Physician Consults: 09/18/24 10:03 Consult to Gastroenterology Routine Consulting Provider: [facility] [place] G[facility] Reason for consultation: intractable n/v; some blood in vomitus DS: Diagnosis Discharge Diagnosis (1) Vomiting: Status: Acute (2) Abdominal pain: Status: Acute DS: Summary Hospital Course Hospital Course: HPI:29-year-old female with a past medical history of obesity, renal stones, mood disorder, esophagitis who presents to the emergency room with complaints of intractable nausea, vomiting and abdominal pain which has progressively worsened over the last 1 week. Initially, the patient reported intermittent nausea with loss of appetite which slowly progressed to persistent vomiting and mid abdominal/epigastric pain. She reports multiple episodes of, initially nonbloody vomitus followed by vomitus with blood-tinged. She denies any coffee-grounds or mark hematemesis. She denies any bright red blood per rectum. The patient also complained of some left flank pain which now seems resolved. She endorses some urinary frequency/urgency. She denies any fevers or chills. She denies any sick contacts. Pt reports smoking marijuana about last 1.5 months (stopped about 1 week ago) Due to the ongoing symptoms and appearance of blood in her vomit, the patient presented to the emergency room. In the ED, the patient underwent a CT abdomen and pelvis which was negative for kidney stones. CMP - bicarb 17, Gap 25, protein 9, K 3; UA+ esteraste, nitirte neg, 1+ bacteria; UDS+ for THC She received treatment with 2L of IVF, multiple rounds of IV antiemetics and multiple rounds of IV analgesics. She continues to be symptomatic, hence will be admitted for further care. Hospital course: Patient was admitted for intractable nausea vomiting abdominal pain possibly likely due to cannabis hyperemesis syndrome: Patient was given IV fluid, ppi, antiemetic-patient seems to be improved significantly, tolerating diet, eager to go home. Patient is switched to p.o. antiemetics and PPIs. In addition patient was seen by GI during this admission: Recommended for PPIs, since patient improved can follow up with GI outpatient. UTI: Please complete Ceftin course at home. Leukocytosis improving, monitor CBC outpatient. Obesity, Class III:weight loss/diet/excerise Blood pressure fluctuation: Explained to the patient blood pressure fluctuation probably due to initial acute sickness and stress: Seems to be improving. Lifestyle modification advised, in addition monitor blood pressure at home, blood pressure kit also ordered for patient. Discussed the follow-up with the PCP for further management. If any new symptoms of nausea vomiting abdominal pain -please go to nearest emergency room for further evaluation. plan: Complete Ceftin course. P.o. antiemetics and laxatives as ordered. Also added potassium and magnesium limited supply as above.n addition follow CBC and BMP with PCP outpatient. Monitor blood pressure/lifestyle modification advised, follow-up with PCP outpatient. Above management discussed with the patient and her significant other-they both understand and in agreement with the above plan, time spent 40 minute, all questions answered. Staff was present during conversation. Time Attestation Total time managing care of this patient today: 40 mintues. Discharge Coordination Time (in mins): 40 min Quality: Safe Use of Opioids Does Pt have an Active Cancer Diagnosis on the Problem List?: No Quality: Stroke Does the patient have a stroke diagnosis?: No Physical Exam Exam: Exam: Appearance: Alert.? Oriented X3. cvs: rrr, [id number] . res: clear to auscultation ,no rhonchii or wheezing abd: no rebound or guarding ,nt, bs present. ext pulses present , no cyanosis . neuro: axo3 , nonfocal. Vital Signs: Vital Signs: Last Vital Signs Temp 98.9 F 09/22/24 15:33 Pulse 90 09/22/24 15:33 Resp 18 09/22/24 15:33 BP 120/80 09/22/24 15:33 Pulse Ox 99 09/22/24 15:33 O2 Del Method Room Air 09/22/24 15:33 BMI result Body Mass Index 54.1 DS: Data Data Completed and Pending Completed studies during hospitalization [Text1]: Procedures Excision of Duodenum, Via Natural or Artificial Opening Endoscopic, Diagnostic (11/22/23) Excision of Middle Esophagus, Via Natural or Artificial Opening Endoscopic, Diagnostic (11/22/23) Excision of Stomach, Pylorus, Via Natural or Artificial Opening Endoscopic, Diagnostic (11/22/23) Labs on day of discharge: Laboratory Results - last 24 hr 09/21/24 09/21/24 16:10 23:07 Hgb 12.3 Hct 37.5 Urine Test NEGATIVE Imaging Chest x-ray: Radiologist's impression: ITS Impressions Abdomen/Pelvis CT 09/18/24 07:03 IMPRESSION: 1. No acute findings in the abdomen or pelvis. No urological calculus or obstruction. 2. Cholelithiasis. 3. Mild diffuse fatty infiltration of the liver. 4. Small to moderate-sized type I hiatus hernia. Chest X-Ray 09/18/24 08:22 IMPRESSION: No acute airspace disease. Discharge Plan Discharge Anticipated Discharge Date/Time: 09/22/24 16:01 Patient Disposition: Home, Self-Care Discharge Diagnosis: Intractable nausea vomiting Referrals: Physician,Unknown J [Primary Care Provider, Medical] - 1 Week Discharge Medications: New polyethylene glycol 3350 17 gram Powder In Packet 17 g PO DAILY PRN (Reason: Constipation) Qty: 60 0RF prochlorperazine maleate 5 mg Tablet 5 mg PO QID PRN (Reason: Nausea And Vomiting) Qty: 10 0RF melatonin 3 mg Tablet 6 mg PO BEDTIME PRN (Reason: Insomnia) Qty: 30 0RF docusate sodium 100 mg Capsule 100 mg PO BID PRN (Reason: Constipation) Qty: 60 0RF omeprazole 20 mg Capsule,Delayed Release(Dr/Ec) 20 mg PO DAILY@0630 Qty: 90 0RF potassium chloride 8 mEq capsule, extended release 8 meq PO DAILY Qty: 4 0RF magnesium 200 mg tablet 200 mg PO DAILY Qty: 7 0RF (DME) blood pressure monitor [Blood Pressure Kit] Kit See Rx Instructions .Route Qty: 1 0RF Rx Instructions: As directed cefuroxime axetil 250 mg Tablet 250 mg PO Q12H Qty: 4 0RF Continued clonazepam 1 mg tablet 1 - 2 mg PO DAILY PRN (Reason: anxiety attack) Discharge Orders: Discharge Order (Routine); Ordered 09/22/24 Ordered By: Max Queen Diet: Advance to usual diet Activity on Discharge: As tolerated Stand Alone Forms: Patient Portal Discharge page Print Language: Korean Care Plan Goals: as below. Health Concerns: As above. Plan of Treatment: Complete Ceftin course. P.o. antiemetics and laxatives as ordered. Also added potassium and magnesium limited supply as above.n addition follow CBC and BMP ,magnesium with PCP outpatient or check with urgent care in 1 week. Monitor blood pressure/lifestyle modification advised, follow-up with PCP outpatient. Assessment: As above. Discharge Date/Time: 09/22/24 17:00
--- NOTE | 2024-09-22 16:22 | MHC.CM.PN ---
PT WILL DC HOME TODAY WITH NO SERVICES VIA PRIVATE TRANSPORT
--- NOTE | 2024-09-22 17:17 | PC.NURSE ---
Upon entering room to review discharge paperwork, patient's dinner plate was completely empty and patient was actively holding up plate and licking it with no complaints of nausea. Discharge paperwork reviewed with patient and family member. Medications reviewed with patient and next administrative times. Patient educated to ensure she follows up with repeating labs and finding a PCP, contact information provided for PCP. Patient also informed to follow up [facility] and contact information provided. Education provided on blood pressure monitoring. No questions for discharge at this time. All belongings removed from room via spouse. Patient ambulated off unit with spouse.
== END 2024-09-22 17:00 | disposition home or self-care (01) | DRG 249 ==
LOC: HO.ED 09:18 → HO.EDOVER 09:23 → HO.S3 19:08
PROVIDERS: Emergency Medicine; Family Medicine; Admitting Provider Internal Medicine; Emergency Provider Emergency Medicine; Visit Provider Internal Medicine
DX: R11.2 Nausea with vomiting, unspecified (principal); Z68.43 Body mass index [BMI] 50.0-59.9, adult; N39.0 Urinary tract infection, site not specified; F39 Unspecified mood [affective] disorder; F12.90 Cannabis use, unspecified, uncomplicated; E66.813 Obesity, class 3; Z71.3 Dietary counseling and surveillance; E87.6 Hypokalemia; Z87.442 Personal history of urinary calculi; Z79.899 Other long term (current) drug therapy
CPT/HCPCS: 36415; 71045; 74176; 80048; 80053; 80307; 81001; 81025; 83690; 83735; 84132; 84702; 85014; 85018; 85025; 85027; 87086; 93005; 99285; J0696; J0737; J1790; J1885; J2405; J2470; J2765; J3010; J3360; J3475; J3480; J7120

== ENCOUNTER → 2024-09-18 07:04 | Outpatient (BNV) | payer OTHER, SELFPAY | PROVIDERS: Emergency Provider Emergency Medicine; Visit Provider Radiology Diagnostic Radiology | DX: K76.0 Fatty (change of) liver, not elsewhere classified (principal); R07.9 Chest pain, unspecified | CPT/HCPCS: 71045; 74176 ==

== ENCOUNTER 2024-09-18 09:10 | Outpatient (BNV) | payer OTHER, SELFPAY | END 2024-09-19 17:37 | PROVIDERS: Admitting Provider Internal Medicine; Emergency Provider Emergency Medicine; Visit Provider Internal Medicine Cardiovascular Disease | DX: I49.3 Ventricular premature depolarization (principal) | CPT/HCPCS: 93010 ==

== ENCOUNTER → 2024-09-18 09:10 | Outpatient (BNV) | payer OTHER, SELFPAY | PROVIDERS: Admitting Provider Internal Medicine; Emergency Provider Emergency Medicine; Visit Provider Family Medicine | DX: R11.2 Nausea with vomiting, unspecified (principal); R10.84 Generalized abdominal pain | CPT/HCPCS: 99223; 99231; 99239 ==

== ENCOUNTER → 2024-09-18 09:10 | Outpatient (BNV) | payer OTHER, SELFPAY | PROVIDERS: Admitting Provider Internal Medicine; Emergency Provider Emergency Medicine; Visit Provider Internal Medicine Gastroenterology | DX: R11.2 Nausea with vomiting, unspecified (principal) | CPT/HCPCS: 99232 ==